=== PATIENT | female | born 1960 | race Caucasian/White ===

== ENCOUNTER 2017-09-21 15:29 | Inpatient (IN) | payer MEDICARE, OTHER ==
[2017-09-21 16:14] LABS: Basophils % (A) 0 %; Eosinophils % (A) 1 %; HCT 40.3 % (34.0-46.0); HGB 13.4 gm/dL (11.4-16.0); Lymphocytes # (A) 1.6 k/uL (1.0-4.8); Lymphocytes % (A) 25 %; MCH 31.8 pg (25.0-35.0); MCHC 33.1 g/dL (31.0-37.0); Mean Platelet Volume 7.3; Monocytes # (A) 0.5 k/uL (0-1.0); Monocytes % (A) 9 %; Neutrophils % (A) 64 %; Platelet Count 232 k/uL (150-450); RDW 11.8 % (11.5-15.5); WBC 6.2 k/uL (3.8-10.6)
--- NOTE | 2017-09-21 16:14 | XR ---
EXAMINATION TYPE: XR chest 2V DATE OF EXAM: 09/21/2017 COMPARISON: 10/12/2015 HISTORY: 56-year-old female with chest pain TECHNIQUE: PA and lateral views FINDINGS: Heart upper limits of normal in size. Aorta and pulmonary vasculature within normal limits. Patchy op acity right upper lobe. No pleural effusion. IMPRESSION: Patchy atelectasis or developing pneumonia in the right upper lobe. Correlate with patient's symptoms . Follow-up after treatment to ensure clearance.
--- NOTE | 2017-09-21 16:14 | ED ---
General Adult HPI - General Chief complaint: Chest Pain Stated complaint: chest pain Time Seen by Provider: 09/21/17 15:31 Source: patient, EMS, RN notes reviewed, old records reviewed Mode of arrival: EMS Limitations: no limitations - History of Present Illness Initial comments: 56 yo female presents for evaluation of anterior chest pain. Patient has been constant for the past 10 days. She describes it as sharp in nature. Patient does report several episodes of dyspnea associated with her pain. She is currently on 3 L home oxygen secondary to COPD. She has no known history of coronary artery disease. She does have a remote history of pulmonary embolism and is currently on Xarelto. Patient denies nausea or vomiting. Denies abdominal pain. Denies lower extremity pain or swelling. - Related Data Home Medications Medication Instructions Recorded Confirmed Albuterol Sulfate [Proair Hfa] 2 puff INHALATION RT-QID PRN 10/07/15 09/21/17 Ipratropium-Albuterol Nebulize 3 ml INHALATION RT-QID PRN 10/07/15 09/21/17 [Duoneb 0.5 mg-3 mg/3 ml Soln] Cholecalciferol [Vitamin D3] 3,000 unit PO DAILY 09/21/17 09/21/17 Rivaroxaban [Xarelto] 15 mg PO DAILY 09/21/17 09/21/17 Previous Rx's Medication Instructions Recorded ALPRAZolam [Xanax] 0.25 mg PO QID PRN #0 tab 10/12/15 DULoxetine HCL [Cymbalta] 60 mg PO BID capsule. 10/12/15 Pregabalin [Lyrica] 75 mg PO BID cap 10/12/15 Divalproex [Depakote] 500 mg PO TID #90 tablet. 10/15/15 levETIRAcetam [Keppra] 750 mg PO Q12HR #60 tab 10/15/15 Allergies Allergy/AdvReac Type Severity Reaction Status Date / Time acetaminophen [From [place]] Allergy Rapid Verified 09/21/17 16:20 Heart Rate hydrocodone bitartrate Allergy Rapid Verified 09/21/17 16:20 [From [place]] Heart Rate seafood AdvReac Unknown Uncoded 09/21/17 15:38 Review of Systems ROS Statement: Those systems with pertinent positive or pertinent negative responses have been documented in the HPI. ROS Other: All systems not noted in ROS Statement are negative. Past Medical History Past Medical History: COPD, Pulmonary Embolus (PE) Additional Past Medical History / Comment(s): epilesy, arthritis, fibromyalgia, depression History of Any Multi-Drug Resistant Organisms: MRSA Date of last positivie culture/infection: 03/22/09 MDRO Source:: Unknown Past Surgical History: Hernia Repair, Tonsillectomy Additional Past Surgical History / Comment(s): cyst removed from behind trachea , plastic surgery on face, Past Anesthesia/Blood Transfusion Reactions: No Reported Reaction Past Psychological History: Anxiety, Depression, Panic Disorder Smoking Status: Never smoker Past Alcohol Use History: None Reported Past Drug Use History: None Reported - Past Family History Father Additional Family Medical History / Comment(s): LUNG CANCER Mother Additional Family Medical History / Comment(s): CERVICAL CANCER General Exam Limitations: no limitations General appearance: alert, in no apparent distress, obese Head exam: Present: atraumatic, normocephalic Eye exam: Present: normal appearance, PERRL, EOMI ENT exam: Present: normal exam Neck exam: Present: normal inspection. Absent: tenderness, meningismus Respiratory exam: Present: decreased breath sounds. Absent: wheezes Cardiovascular Exam: Present: regular rate, normal rhythm GI/Abdominal exam: Present: soft. Absent: distended, tenderness Extremities exam: Present: normal inspection, full ROM, normal capillary refill. Absent: pedal edema, calf tenderness Back exam: Present: normal inspection. Absent: tenderness Neurological exam: Present: alert, oriented X3, CN II-XII intact. Absent: motor sensory deficit Psychiatric exam: Present: normal affect, normal mood Skin exam: Present: warm, dry, intact. Absent: cyanosis, diaphoretic Course Vital Signs 09/21/17 09/21/17 15:35 15:40 Temperature 98.3 F Pulse Rate 85 Pulse Rate [ 75 Front Desk Officer ] Respiratory 20 22 Rate Blood Pressure 150/76 O2 Sat by Pulse 98 Oximetry EKG Findings - EKG Comments: EKG Findings:: EKG, poor quality secondary to patient's tremor, normal sinus rhythm, ventricular rate 82, NJ interval 146, QRS duration 76, QTC 392, no definitive signs of ischemia Medical Decision Making - Medical Decision Making 56-year-old female coming in with chest pain and dyspnea. Patient has COPD, she is on home oxygen. Patient had a heart cath in April 2014 which showed right dominant system, no significant disease at that time. Patient's chest pain is atypical. It has been constant for 10 days. Initial troponin is negative. Other laboratory studies include CBC and CMP are unremarkable. Chest x-ray shows right upper lobe pneumonia. CT angiography is obtained as patient does have history of PE, this is negative for PE, there is significant pulmonary scarring. Patient will be placed in observation for IV antibiotics for the possibility of community acquired pneumonia as well as serial cardiac enzymes. - Lab Data Result diagrams: 09/21/17 15:49 09/21/17 15:49 Lab Results 09/21/17 09/21/17 09/21/17 Range/Units 15:49 15:49 15:49 WBC 6.2 (3.8-10.6) k/uL RBC 4.20 (3.80-5.40) m/uL Hgb 13.4 (11.4-16.0) gm/dL Hct 40.3 (34.0-46.0) % MCV 96.0 (80.0-100.0) fL MCH 31.8 (25.0-35.0) pg MCHC 33.1 (31.0-37.0) g/dL RDW 11.8 (11.5-15.5) % Plt Count 232 (150-450) k/uL Neutrophils % 64 % Lymphocytes % 25 % Monocytes % 9 % Eosinophils % 1 % Basophils % 0 % Neutrophils # 4.0 (1.3-7.7) k/uL Lymphocytes # 1.6 (1.0-4.8) k/uL Monocytes # 0.5 (0-1.0) k/uL Eosinophils # 0.0 (0-0.7) k/uL Basophils # 0.0 (0-0.2) k/uL PT (9.0-12.0) sec INR (<1.2) APTT (22.0-30.0) sec Sodium 138 (137-145) mmol/L Potassium 4.1 (3.5-5.1) mmol/L Chloride 95 L (98-107) mmol/L Carbon Dioxide 34 H (22-30) mmol/L Anion Gap 9 mmol/L BUN 11 (7-17) mg/dL Creatinine 0.50 L (0.52-1.04) mg/dL Est GFR (MDRD) Af Amer >60 (>60 ml/min/1.73 sqM) Est GFR (MDRD) Non-Af >60 (>60 ml/min/1.73 sqM) Glucose 119 H (74-99) mg/dL Calcium 9.4 (8.4-10.2) mg/dL Magnesium 1.8 (1.6-2.3) mg/dL Total Bilirubin 0.3 (0.2-1.3) mg/dL AST 13 L (14-36) U/L ALT 15 (9-52) U/L Alkaline Phosphatase 57 (38-126) U/L Total Creatine Kinase 26 L (30-135) U/L CK-MB (CK-2) <0.2 (0.0-2.4) ng/mL CK-MB (CK-2) Rel Index Troponin I <0.012 (0.000-0.034) ng/mL NT-Pro-B Natriuret Pep pg/mL Total Protein 6.8 (6.3-8.2) g/dL Albumin 3.7 (3.5-5.0) g/dL 09/21/17 09/21/17 Range/Units 15:49 15:49 WBC (3.8-10.6) k/uL RBC (3.80-5.40) m/uL Hgb (11.4-16.0) gm/dL Hct (34.0-46.0) % MCV (80.0-100.0) fL MCH (25.0-35.0) pg MCHC (31.0-37.0) g/dL RDW (11.5-15.5) % Plt Count (150-450) k/uL Neutrophils % % Lymphocytes % % Monocytes % % Eosinophils % % Basophils % % Neutrophils # (1.3-7.7) k/uL Lymphocytes # (1.0-4.8) k/uL Monocytes # (0-1.0) k/uL Eosinophils # (0-0.7) k/uL Basophils # (0-0.2) k/uL PT 11.0 (9.0-12.0) sec INR 1.1 (<1.2) APTT 26.4 (22.0-30.0) sec Sodium (137-145) mmol/L Potassium (3.5-5.1) mmol/L Chloride (98-107) mmol/L Carbon Dioxide (22-30) mmol/L Anion Gap mmol/L BUN (7-17) mg/dL Creatinine (0.52-1.04) mg/dL Est GFR (MDRD) Af Amer (>60 ml/min/1.73 sqM) Est GFR (MDRD) Non-Af (>60 ml/min/1.73 sqM) Glucose (74-99) mg/dL Calcium (8.4-10.2) mg/dL Magnesium (1.6-2.3) mg/dL Total Bilirubin (0.2-1.3) mg/dL AST (14-36) U/L ALT (9-52) U/L Alkaline Phosphatase (38-126) U/L Total Creatine Kinase (30-135) U/L CK-MB (CK-2) (0.0-2.4) ng/mL CK-MB (CK-2) Rel Index Troponin I (0.000-0.034) ng/mL NT-Pro-B Natriuret Pep 51 pg/mL Total Protein (6.3-8.2) g/dL Albumin (3.5-5.0) g/dL Disposition Clinical Impression: Chest pain, Community acquired pneumonia Disposition: ADMITTED IP TO THIS [facility] Condition: Stable Referrals: Noa Olea MD [Primary Care Provider] - 1-2 days Decision to Admit Reason: Admit from EC Decision Date: 09/21/17 Decision Time: 18:55
[2017-09-21 16:22] LABS: INR 1.1 (<1.2); Partial Thromboplastin Time 26.4 sec (22.0-30.0)
[2017-09-21 16:25] LABS: ALT 15 U/L (9-52); AST 13 U/L (14-36); Albumin 3.7 g/dL (3.5-5.0); Alkaline Phosphatase 57 U/L (38-126); Anion Gap 9 mmol/L; Blood Urea Nitrogen 11 mg/dL (7-17); Calcium 9.4 mg/dL (8.4-10.2); Carbon Dioxide 34 mmol/L (22-30); Chloride 95 mmol/L (98-107); Glucose 119 mg/dL (74-99); Potassium 4.1 mmol/L (3.5-5.1); Sodium 138 mmol/L (137-145); Total Bilirubin 0.3 mg/dL (0.2-1.3); Total Protein 6.8 g/dL (6.3-8.2)
[2017-09-21 16:34] LABS: Creatine Kinase 26 U/L (30-135)
[2017-09-21 16:48] LABS: Creatine Kinase MB <0.2 ng/mL (0.0-2.4); Troponin I <0.012 ng/mL (0.000-0.034)
[2017-09-21] MEDS ORDERED: RX INFO: IV CONTRAST WAS GIVEN 1 EACH MISC MISCELLANE PRN (16:49)
--- NOTE | 2017-09-21 18:02 | CT ---
EXAMINATION TYPE: CT angio chest DATE OF EXAM: 09/21/2017 5:47 PM COMPARISON: 10/07/2015 HISTORY: Chest pain x10 days. CT DLP: 326.9 mGycm Automated exposure control for dose reduction was used. CONTRAST: CTA scan of the thorax is performed with IV Contrast, patient injected with 100ml mL of Omnipaque 350 , pulmonary embolism protocol. There are 3-D post processed images.. FINDINGS: There is patchy infiltrate and atelectasis in the medial right lower lobe. There is no pericardial ef fusion. There is no mediastinal adenopathy. Thoracic aorta appears intact. I see no filling defects in the pulmonary arteries. There are no hilar masses. There is no pleural ef fusion. There is coarse linear density also at the left posterior lung base. IMPRESSION: NO EVIDENCE OF PULMONARY EMBOLISM. THERE ARE CHRONIC LINEAR AREAS OF INFILTRATE AND ATELECTASIS AT TH E POSTERIOR LUNG BASES AND MORE ON THE RIGHT SIDE. THIS IS NOT SIGNIFICANTLY DIFFERENT THAN OLD EXAM. THERE IS PROBABLY A SIGNIFICANT COMPONENT OF PULMONARY SCARRING.
[2017-09-21] MEDS ORDERED: cefTRIAXone IN SWFI 1,000 MG/10 ML SYRINGE IVP STA (18:49)
[2017-09-21] MEDS ORDERED: AZITHROMYCIN 500 MG in SODIUM CHLORIDE 0.9% 250 ML IVPB STA (18:49)
[2017-09-21] MEDS ORDERED: NALOXONE 0.4 MG/ML 1 ML VIAL IV PRN (18:51)
[2017-09-21] MEDS: IBUPROFEN 400 MG TAB PO PRN (20:26)
[2017-09-21 22:46] LABS: Creatine Kinase 25 U/L (30-135)
[2017-09-21 22:59] LABS: Creatine Kinase MB <0.2 ng/mL (0.0-2.4); Troponin I <0.012 ng/mL (0.000-0.034)
[2017-09-22] MEDS: ALPRAZolam 0.25 MG TAB PO PRN ×2 (01:43→21:20)
[2017-09-22] MEDS: DIVALPROEX 500 MG TABLET.DR PO SCH ×4 (01:43→21:08)
[2017-09-22] MEDS: PREGABALIN 75 MG CAP PO SCH ×3 (01:43→21:21)
[2017-09-22] MEDS: IBUPROFEN 400 MG TAB PO PRN ×2 (01:49→09:14)
[2017-09-22 03:31] LABS: Creatine Kinase 27 U/L (30-135)
[2017-09-22 03:42] LABS: Creatine Kinase MB <0.2 ng/mL (0.0-2.4)
[2017-09-22 04:18] LABS: Troponin I <0.012 ng/mL (0.000-0.034)
[2017-09-22] MEDS: IPRATROPIUM-ALBUTEROL 3 ML NEB INHALATION PRN ×2 (08:06→11:57)
[2017-09-22] MEDS: DULoxetine HCL 60 MG CAPSULE.DR PO SCH ×2 (09:15→21:08)
[2017-09-22] MEDS: RIVAROXABAN 15 MG TAB PO SCH (09:15)
[2017-09-22] MEDS: CHOLECALCIFEROL 1,000 UNIT TAB PO SCH (09:15)
--- NOTE | 2017-09-22 09:57 | P.HPIM ---
History of Present Illness H&P Date: 09/22/17 Chief Complaint: Chest pain shortness of breath Hollie Estes is a 56-year-old female who presented to [facility] emergency room with a 10 day history of chest pain with episodes of shortness of breath. Patient has a known history of COPD she is followed as outpatient by Dr. Daniel Oates tricot knitter, her primary care physician is Dr. Olea. She also has known history of pulmonary embolism diagnosed 2 years ago, patient has been maintained on Xarelto since then she stated that she has been taking her medication regularly. Patient was evaluated in the emergency room, she had a chest x-ray and a CT angiogram of the chest that failed to reveal any evidence of pulmonary embolism , EKG was done and revealed nonspecific ST and T wave changes, troponin levels were within normal limits, patient was admitted to telemetry floor cardiology and pulmonary consultation were requested. Patient denies having any cardiac history, she states that she had a stress test several years ago, she never had cardiac catheterization. She states that she was diagnosed with COPD, she never smoked but her parents and siblings were smoker and she was exposed to secondhand smoking all her life. She denies any alcohol or drug use. She has a history of a large cyst removed from her neck. Past Medical History Past Medical History: COPD, Pulmonary Embolus (PE) Additional Past Medical History / Comment(s): epilesy, arthritis, fibromyalgia, depression History of Any Multi-Drug Resistant Organisms: MRSA Date of last positivie culture/infection: 03/22/09 MDRO Source:: Unknown Past Surgical History: Hernia Repair, Tonsillectomy Additional Past Surgical History / Comment(s): cyst removed from behind trachea , plastic surgery on face, Past Anesthesia/Blood Transfusion Reactions: No Reported Reaction Past Psychological History: Anxiety, Depression, Panic Disorder Smoking Status: Never smoker Past Alcohol Use History: None Reported Past Drug Use History: None Reported - Past Family History Father Additional Family Medical History / Comment(s): LUNG CANCER Mother Additional Family Medical History / Comment(s): CERVICAL CANCER Medications and Allergies Home Medications Medication Instructions Recorded Confirmed Type Albuterol Sulfate [Proair Hfa] 2 puff INHALATION RT-QID PRN 10/07/15 09/21/17 History Ipratropium-Albuterol Nebulize 3 ml INHALATION RT-QID PRN 10/07/15 09/21/17 History [Duoneb 0.5 mg-3 mg/3 ml Soln] ALPRAZolam [Xanax] 0.25 mg PO QID PRN #0 tab 10/12/15 09/21/17 Rx DULoxetine HCL [Cymbalta] 60 mg PO BID capsule. 10/12/15 09/21/17 Rx Pregabalin [Lyrica] 75 mg PO BID cap 10/12/15 09/21/17 Rx Divalproex [Depakote] 500 mg PO TID #90 tablet. 10/15/15 09/21/17 Rx levETIRAcetam [Keppra] 750 mg PO Q12HR #60 tab 10/15/15 09/21/17 Rx Cholecalciferol [Vitamin D3] 3,000 unit PO DAILY 09/21/17 09/21/17 History Rivaroxaban [Xarelto] 15 mg PO DAILY 09/21/17 09/21/17 History Allergies Allergy/AdvReac Type Severity Reaction Status Date / Time acetaminophen [From [place]] Allergy Rapid Verified 09/21/17 16:20 Heart Rate hydrocodone bitartrate Allergy Rapid Verified 09/21/17 16:20 [From [place]] Heart Rate seafood AdvReac Unknown Uncoded 09/21/17 15:38 Physical Exam Vitals: Vital Signs Temp Pulse Pulse Resp BP BP Pulse Ox 09/22/17 08:25 72 09/22/17 08:07 72 09/22/17 08:00 96.1 F L 79 138/77 98 09/22/17 04:00 96.8 F L 67 18 119/59 99 09/22/17 00:00 82 20 09/21/17 22:05 96.2 F L 82 20 157/82 99 09/21/17 20:52 97.6 F 75 20 121/65 98 09/21/17 20:00 97.8 F 73 18 108/75 98 09/21/17 18:49 97.8 F 71 18 117/62 99 09/21/17 15:40 75 22 09/21/17 15:35 98.3 F 85 20 150/76 98 Intake and Output 09/21/17 09/22/17 09/22/17 22:59 06:59 14:59 Intake Total 350 150 Balance 350 150 Intake: Amount of Fluid Infused ( 100 ml) Intake, IV Titration 250 Amount Azithromycin 500 mg In 250 Sodium Chloride 0.9% 250 ml @ 125 mls/hr IVPB ONCE STA Rx#:[id number] Oral 150 Other: Voiding Method Toilet # Voids 1 1 Weight 102.058 kg 99.7 kg In general patient is alert and oriented 3 answering questions appropriately in no apparent distress HEENT head normocephalic and atraumatic Neck is supple no JVD no goiter no lymphadenopathy Chest exam reveals a few scattered crackles bilaterally no wheezing Cardiac exam reveals regular heart sounds S1 and S2 no gallops no murmurs Abdomen is soft nontender no organomegaly with normal bowel sounds Extremity exam reveals no edema no cyanosis or clubbing Results CBC & Chem 7: 09/21/17 15:49 09/21/17 15:49 Labs: Abnormal Lab Results - Last 24 Hours (Table) 09/21/17 09/21/17 09/21/17 Range/Units 15:49 15:49 22:10 Chloride 95 L (98-107) mmol/L Carbon Dioxide 34 H (22-30) mmol/L Creatinine 0.50 L (0.52-1.04) mg/dL Glucose 119 H (74-99) mg/dL AST 13 L (14-36) U/L Total Creatine Kinase 26 L 25 L (30-135) U/L 09/22/17 Range/Units 02:56 Chloride (98-107) mmol/L Carbon Dioxide (22-30) mmol/L Creatinine (0.52-1.04) mg/dL Glucose (74-99) mg/dL AST (14-36) U/L Total Creatine Kinase 27 L (30-135) U/L Thrombosis Risk Factor Assmnt - Choose All That Apply Any of the Below Risk Factors Present?: Yes Each Factor Represents 1 point: Obesity (BMI >25) Thrombosis Risk Factor Assessment Total Risk Factor Score: 1 Thrombosis Risk Factor Assessment Level: Low Risk Assessment and Plan Assessment: #1 chest pain for the last 10 days patient describes sharp pain in the anterior aspect of her chest, with episodes of shortness of breath #2 questionable infiltrate on chest x-ray patient was started on IV Rocephin and IV Zithromax in the emergency room pulmonary consultation was requested #3 previous history of pulmonary embolism #4 underlying history of COPD #5 underlying history of seizure disorder #6 underlying history of fibromyalgia #7 underlying history of depression #8 underlying history of osteoarthritis At this time will continue with current management awaiting input from cardiology and pulmonary will follow closely
[2017-09-22] MEDS ORDERED: traMADol 50 MG TAB PO PRN (09:58)
[2017-09-22] MEDS: MORPHINE SULFATE ER 15 MG TABLET PO SCH ×2 (14:37→21:20)
[2017-09-22] MEDS: ALBUTEROL NEBULIZED 2.5 MG/3 ML INHALATION PRN (15:40)
[2017-09-22] MEDS ORDERED: DIPHENOX-ATROP 2.5-0.025 MG 1 EACH TAB PO PRN (17:34)
--- NOTE | 2017-09-22 19:56 | P.CNPUL ---
History of Present Illness Consult date: 09/22/17 Reason for consult: dyspnea, cough, asthma, COPD, pneumonia Chief complaint: Shortness of breath cough and chest pain progressive 10 days History of present illness: Mrs. Meaghan dyer is well-known to be she is a 56-year-old with history of chronic persistent asthma and severe COPD patient also has a history of obstructive sleep apnea however she was not able to get a new CPAP machine this patient was started increased chest tightness shortness breath and cough about 10 days ago which has been progressive patient has been on long-term anticoagulation due to her prior recurrent pulmonary embolism has been admitted into the hospital from the emergency department she had a CAT scan of the chest performed on x-ray which failed to reveal pulmonary embolism, even though she is a nonsmoker but due to her chronic asthma she has developed COPD-like changes Review of Systems All systems: negative Past Medical History Past Medical History: COPD, Pulmonary Embolus (PE) Additional Past Medical History / Comment(s): epilesy, arthritis, fibromyalgia, depression History of Any Multi-Drug Resistant Organisms: MRSA Date of last positivie culture/infection: 03/22/09 MDRO Source:: Unknown Past Surgical History: Hernia Repair, Tonsillectomy Additional Past Surgical History / Comment(s): cyst removed from behind trachea , plastic surgery on face, Past Anesthesia/Blood Transfusion Reactions: No Reported Reaction Past Psychological History: Anxiety, Depression, Panic Disorder Smoking Status: Never smoker Past Alcohol Use History: None Reported Past Drug Use History: None Reported - Past Family History Father Additional Family Medical History / Comment(s): LUNG CANCER Mother Additional Family Medical History / Comment(s): CERVICAL CANCER Medications and Allergies Home Medications Medication Instructions Recorded Confirmed Type Albuterol Sulfate [Proair Hfa] 2 puff INHALATION RT-QID PRN 10/07/15 09/21/17 History Ipratropium-Albuterol Nebulize 3 ml INHALATION RT-QID PRN 10/07/15 09/21/17 History [Duoneb 0.5 mg-3 mg/3 ml Soln] ALPRAZolam [Xanax] 0.25 mg PO QID PRN #0 tab 10/12/15 09/21/17 Rx DULoxetine HCL [Cymbalta] 60 mg PO BID capsule. 10/12/15 09/21/17 Rx Pregabalin [Lyrica] 75 mg PO BID cap 10/12/15 09/21/17 Rx Divalproex [Depakote] 500 mg PO TID #90 tablet. 10/15/15 09/21/17 Rx levETIRAcetam [Keppra] 750 mg PO Q12HR #60 tab 10/15/15 09/21/17 Rx Cholecalciferol [Vitamin D3] 3,000 unit PO DAILY 09/21/17 09/21/17 History Rivaroxaban [Xarelto] 15 mg PO DAILY 09/21/17 09/21/17 History Morphine Sulfate ER [Ms Contin 15 mg PO Q12HR 09/22/17 09/22/17 History 15Mg] Allergies Allergy/AdvReac Type Severity Reaction Status Date / Time acetaminophen [From [place]] Allergy Rapid Verified 09/21/17 16:20 Heart Rate hydrocodone bitartrate Allergy Rapid Verified 09/21/17 16:20 [From [place]] Heart Rate seafood AdvReac Unknown Uncoded 09/21/17 15:38 Physical Exam Vitals: Vital Signs Temp Pulse Pulse Resp BP BP Pulse Ox 09/22/17 16:00 94 137/80 100 09/22/17 15:57 80 09/22/17 15:41 76 09/22/17 12:12 80 09/22/17 12:00 84 135/68 99 09/22/17 11:57 84 09/22/17 08:25 72 09/22/17 08:07 72 09/22/17 08:00 96.1 F L 79 138/77 98 09/22/17 04:00 96.8 F L 67 18 119/59 99 09/22/17 00:00 82 20 09/21/17 22:05 96.2 F L 82 20 157/82 99 09/21/17 20:52 97.6 F 75 20 121/65 98 09/21/17 20:00 97.8 F 73 18 108/75 98 Intake and Output 09/22/17 09/22/17 09/22/17 06:59 14:59 22:59 Intake Total 150 820 222 Balance 150 820 222 Intake: Oral 150 820 222 Other: Voiding Method Toilet # Voids 1 Weight 99.7 kg General appearance: alert, in no apparent distress, obese Head exam: Present: atraumatic, normocephalic Eye exam: Present: normal appearance, PERRL, EOMI ENT exam: Present: normal exam Neck exam: Present: normal inspection. Absent: tenderness, meningismus Respiratory exam: Present: decreased breath sounds. Fine wheezing on for's expiration is present Cardiovascular Exam: Present: regular rate, normal rhythm GI/Abdominal exam: Present: soft. Absent: distended, tenderness Extremities exam: Present: normal inspection, full ROM, normal capillary refill. Absent: pedal edema, calf tenderness Back exam: Present: normal inspection. Absent: tenderness Neurological exam: Present: alert, oriented X3, CN II-XII intact. Absent: motor sensory deficit Psychiatric exam: Present: normal affect, normal mood Skin exam: Present: warm, dry, intact. Absent: cyanosis, diaphoreti Results - Laboratory Findings CBC and BMP: 09/21/17 15:49 09/21/17 15:49 PT/INR, D-dimer PT 11.0 sec (9.0-12.0) 09/21/17 15:49 INR 1.1 (<1.2) 09/21/17 15:49 Abnormal lab findings: Abnormal Labs 09/21/17 09/21/17 09/21/17 15:49 15:49 22:10 Chloride 95 L Carbon Dioxide 34 H Creatinine 0.50 L Glucose 119 H AST 13 L Total Creatine Kinase 26 L 25 L 09/22/17 02:56 Chloride Carbon Dioxide Creatinine Glucose AST Total Creatine Kinase 27 L - Diagnostic Findings Chest x-ray: report reviewed, image reviewed CT scan - chest: report reviewed, image reviewed (Right upper lobe pneumonia noted on chest x-ray and computed tomography scan also revealed right lower lobe infiltrate which are patchy in nature, some infiltrate on the left lower lobe cannot be excluded) Assessment and Plan Assessment: Acute COPD X exacerbation Acute asthma Bilateral lower lobe pneumonia right more than left History of prior recurrent pulmonary embolism Obstructive sleep apnea Baseline chronic persistent asthma of severe category Mood disorder depression and chronic pain syndrome Plan: Would initiate patient on IV steroids along with antibiotics continue breathing treatment continue supportive care will check influenza A and B as well Time with Patient: Greater than 30
[2017-09-22] MEDS ORDERED: AZITHROMYCIN 250 MG TAB PO SCH (20:00)
[2017-09-22] MEDS: cefTRIAXone IN SWFI 1,000 MG/10 ML SYRINGE IVP SCH (21:21)
[2017-09-22] MEDS: methylPREDNISolone SOD SUCCI 40 MG/ML 1 ML VIAL IV SCH (21:22)
[2017-09-23] MEDS: DULoxetine HCL 60 MG CAPSULE.DR PO SCH ×2 (08:43→20:34)
[2017-09-23] MEDS: AZITHROMYCIN 500 MG TAB PO SCH (08:43)
[2017-09-23] MEDS: RIVAROXABAN 15 MG TAB PO SCH (08:43)
[2017-09-23] MEDS: methylPREDNISolone SOD SUCCI 40 MG/ML 1 ML VIAL IV SCH ×2 (08:43→22:35)
[2017-09-23] MEDS: CHOLECALCIFEROL 1,000 UNIT TAB PO SCH (08:43)
[2017-09-23] MEDS: MORPHINE SULFATE ER 15 MG TABLET PO SCH ×2 (08:51→20:39)
[2017-09-23] MEDS: PREGABALIN 75 MG CAP PO SCH ×2 (08:52→20:40)
[2017-09-23] MEDS: cefTRIAXone IN SWFI 1,000 MG/10 ML SYRINGE IVP SCH (08:52)
--- NOTE | 2017-09-23 10:16 | P.PN ---
Subjective Progress Note Date: 09/23/17 Hollie Estes is a 56-year-old female who presented to [facility] emergency room with a 10 day history of chest pain with episodes of shortness of breath. Patient has a known history of COPD she is followed as outpatient by Dr. Daniel Oates senior grant writer, her primary care physician is Dr. Olea. She also has known history of pulmonary embolism diagnosed 2 years ago, patient has been maintained on Xarelto since then she stated that she has been taking her medication regularly. Patient was evaluated in the emergency room, she had a chest x-ray and a CT angiogram of the chest that failed to reveal any evidence of pulmonary embolism , EKG was done and revealed nonspecific ST and T wave changes, troponin levels were within normal limits, patient was admitted to telemetry floor cardiology and pulmonary consultation were requested. Patient denies having any cardiac history, she states that she had a stress test several years ago, she never had cardiac catheterization. She states that she was diagnosed with COPD, she never smoked but her parents and siblings were smoker and she was exposed to secondhand smoking all her life. She denies any alcohol or drug use. She has a history of a large cyst removed from her neck. 09/23/2016 IV Solu-Medrol was started yesterday. Patient showing improvement in her shortness of breath. Does not feel ready for discharge yet. CTA of the chest was negative for PE. Influenza screen negative. Objective - Vital Signs Vital signs: Vital Signs Temp 98.2 F 09/23/17 08:00 Pulse 81 09/23/17 08:00 Resp 18 09/23/17 08:00 BP 127/63 09/23/17 08:00 Pulse Ox 96 09/23/17 08:00 Intake & Output 09/22/17 09/23/17 09/23/17 18:59 06:59 18:59 Intake Total 1042 Balance 1042 Weight 100.5 kg Intake: Oral 1042 Other: Voiding Method Toilet # Voids 1 - Exam Head normocephalic Neck supple Lungs diminished bilaterally Heart regular rate and rhythm S1-S2, no rub or gallop Abdomen is soft nontender nondistended positive bowel sounds no hepatosplenomegaly Extremities no edema Neuro alert and orientated to 3 - Labs CBC & Chem 7: 09/21/17 15:49 09/21/17 15:49 Labs: Microbiology - Last 24 Hours (Table) 09/21/17 19:37 Blood Culture - Preliminary Blood No Growth after 24 hours Assessment and Plan Assessment: 1. Acute COPD exacerbation: Continue IV Solu-Medrol and bronchodilators. Pulmonary service following. Appreciate their input. 2. Bilateral lower lobe pneumonia: Continue antibiotics Rocephin and azithromycin 3. Chest pain likely related to patient's pneumonia and COPD exacerbation. PE ruled out CTA of the chest was negative. Troponins negative 3 sets 4. History of seizure disorder 5. History of depression 6. History of osteoarthritis Encourage patient to increase activity. Patient is showing improvement. Anticipate discharge home tomorrow I performed an examination of the patient and discussed their management with the physician Separator Tender. I have reviewed the Physician Separator Tender's notes and agree with the documented findings and plan of care
[2017-09-23 11:16] LABS: Glucose,Whole Blood 131 mg/dL (75-99)
[2017-09-23] MEDS: INSULIN ASPART 100 UNIT/ML 1 ML 10 ML VIAL SQ SCH ×3 (11:50→20:35)
--- NOTE | 2017-09-23 14:17 | P.CRDCN ---
History of Present Illness History of present illness: Mrs. Estes is a pleasant 56-year-old female past medical history significant for COPD, seizures, arthritis, fibromyalgia, PE and depression. She denies history of coronary artery disease and doesn't follow with a editor trade journal for any reason. We have been asked to see her in consultation for complaints of chest pain. She states for the previous 10-12 days she has been feeling increasingly short of breath with a heavy sensation in the center of her chest. The pain remains localized to the center of the chest with no radiation. She denies associated dizziness, palpitations, nausea, vomiting or diaphoresis. The pain has been pretty constant with no specific aggravating or alleviating factors. She presented to the hospital her evaluation and was ruled out for PE diagnosed with bilateral lower lobe pneumonia as well as an acute exacerbation of her COPD. At the time of my exam she is resting comfortably with no complaints. She states the pressure in her chest has gone away and her breathing is improved since admission. She is currently being treated with IV antibiotics as well as IV steroids. Pulmonology is also following. EKG reveals sinus mechanism with non-specific T wave changes. Chest x-ray reveals patchy atelectasis or developing pneumonia in the right upper lobe. CT angiogram reveals no evidence of pulmonary embolism with chronic coronary areas of infiltrate atelectasis in the posterior lung bases more on the right. Laboratory data reviewed, cardiac enzymes negative 3, hemoglobin 13.4, platelets 232, potassium 4.1, magnesium 1.8, creatinine 0.5. Currently she takes Xarelto 15 mg daily for history of PE. Most recent cardiac catheterization was performed April 2014 revealed right coronary artery free of significant disease, left main is free of stenosis, LAD is a tortuous vessel with minor irregularities with no evidence of significant disease, circumflex artery is a good caliber good distribution with no evidence of stenosis. Review of Systems At the time of my exam: CONSTITUTIONAL: Denies fever. Denies chills. EYES: Denies blurred vision. Denies vision changes. Denies eye pain. EARS, NOSE, MOUTH & THROAT: Denies headache. Denies sore throat. Denies ear pain. CARDIOVASCULAR: Denies chest pain. Complains of mild but improving shortness of breath. Denies orthopnea. Denies PND. Denies palpitations. RESPIRATORY: Denies cough. GASTROINTESTINAL: Denies abdominal pain. Denies diarrhea. Denies constipation. Denies nausea. Denies vomiting. MUSCULOSKELETAL: Denies myalgias. INTEGUMENTARY: Denies pruitis. Denies rash. NEUROLOGIC: Denies numbness. Denies tingling. Denies weakness. PSYCHIATRIC: Denies anxiety. Denies depression. ENDOCRINE: Denies fatigue. Denies weight change. Denies polydipsia. Denies polyurina. GENITOURINARY: Denies burning, hematuria or urgency with micturation. HEMATOLOGIC: Denies history of anemia. Denies bleeding. Past Medical History Past Medical History: COPD, Pulmonary Embolus (PE) Additional Past Medical History / Comment(s): epilesy, arthritis, fibromyalgia, depression History of Any Multi-Drug Resistant Organisms: MRSA Date of last positivie culture/infection: 03/22/09 MDRO Source:: Unknown Past Surgical History: Hernia Repair, Tonsillectomy Additional Past Surgical History / Comment(s): cyst removed from behind trachea , plastic surgery on face, Past Anesthesia/Blood Transfusion Reactions: No Reported Reaction Past Psychological History: Anxiety, Depression, Panic Disorder Smoking Status: Never smoker Past Alcohol Use History: None Reported Past Drug Use History: None Reported - Past Family History Father Additional Family Medical History / Comment(s): LUNG CANCER Mother Additional Family Medical History / Comment(s): CERVICAL CANCER Medications and Allergies Home Medications Medication Instructions Recorded Confirmed Type Albuterol Sulfate [Proair Hfa] 2 puff INHALATION RT-QID PRN 10/07/15 09/21/17 History Ipratropium-Albuterol Nebulize 3 ml INHALATION RT-QID PRN 10/07/15 09/21/17 History [Duoneb 0.5 mg-3 mg/3 ml Soln] ALPRAZolam [Xanax] 0.25 mg PO QID PRN #0 tab 10/12/15 09/21/17 Rx DULoxetine HCL [Cymbalta] 60 mg PO BID capsule. 10/12/15 09/21/17 Rx Pregabalin [Lyrica] 75 mg PO BID cap 10/12/15 09/21/17 Rx Divalproex [Depakote] 500 mg PO TID #90 tablet. 10/15/15 09/21/17 Rx levETIRAcetam [Keppra] 750 mg PO Q12HR #60 tab 10/15/15 09/21/17 Rx Cholecalciferol [Vitamin D3] 3,000 unit PO DAILY 09/21/17 09/21/17 History Rivaroxaban [Xarelto] 15 mg PO DAILY 09/21/17 09/21/17 History Morphine Sulfate ER [Ms Contin 15 mg PO Q12HR 09/22/17 09/22/17 History 15Mg] Allergies Allergy/AdvReac Type Severity Reaction Status Date / Time acetaminophen [From [place]] Allergy Rapid Verified 09/21/17 16:20 Heart Rate hydrocodone bitartrate Allergy Rapid Verified 09/21/17 16:20 [From [place]] Heart Rate seafood AdvReac Unknown Uncoded 09/21/17 15:38 Physical Exam Vitals: Vital Signs Temp Pulse Pulse Pulse Resp BP BP 09/23/17 08:00 98.2 F 81 18 127/63 09/23/17 00:00 93 20 09/22/17 20:00 93 20 09/22/17 19:15 98.3 F 93 20 145/81 09/22/17 16:00 94 137/80 09/22/17 15:57 80 09/22/17 15:41 76 Pulse Ox 09/23/17 08:00 96 09/23/17 00:00 09/22/17 20:00 09/22/17 19:15 100 09/22/17 16:00 100 09/22/17 15:57 09/22/17 15:41 Intake and Output 09/22/17 09/23/17 09/23/17 22:59 06:59 14:59 Intake Total 222 Balance 222 Intake: Oral 222 Other: Voiding Method Toilet Toilet # Voids 1 1 Weight 100.5 kg Blood pressure 127/63 heart rate 81 afebrile GENERAL: This is a 56-year-old female in no apparent distress at the time of my examination. HEENT: Head is atraumatic, normocephalic. Pupils are equal, round. Sclerae anicteric. Conjunctivae are clear. Mucous membranes of the mouth are moist. Neck is supple. There is no jugular venous distention. No carotid bruit is heard. LUNGS: Clear to auscultation no wheezes, rales or rhonchi. No chest wall tenderness is noted on palpation or with deep breathing. Diminished. HEART: Regular rate and rhythm with systolic ejection murmur at the base, no rubs or gallops. S1 and S2 heard. ABDOMEN: Soft, nontender. Bowel sounds are heard. No organomegaly noted. EXTREMITIES: Trace nonpitting bilateral lower extremity edema and no calf tenderness noted. VASCULAR: Radial and dorsalis pedis pulses palpated, no evidence of clubbing. NEUROLOGIC: Patient is awake, alert and oriented x3. Results 09/21/17 15:49 09/21/17 15:49 Current Medications Generic Name Dose Route Start Last Admin Trade Name Freq PRN Reason Stop Dose Admin Albuterol Sulfate 2.5 mg 09/22/17 00:53 09/22/17 15:40 Ventolin Nebulized INHALATION 2.5 mg RT-QID PRN Administration Shortness Of Breath Albuterol/Ipratropium 3 ml 09/22/17 00:53 09/22/17 11:57 Duoneb 0.5 Mg-3 Mg/3 Ml Soln INHALATION 3 ml RT-QID PRN Administration Shortness Of Breath Alprazolam 0.25 mg 09/22/17 00:53 09/22/17 21:20 Xanax PO 0.25 mg QID PRN Administration Anxiety Azithromycin 500 mg 09/22/17 20:12 09/23/17 08:43 Zithromax PO 500 mg DAILY BABATUNDE Administration Ceftriaxone Sodium 1,000 mg 09/22/17 20:00 09/23/17 08:52 Rocephin IVP 1,000 mg Q24HR BABATUNDE Administration Cholecalciferol 3,000 unit 09/22/17 09:00 09/23/17 08:43 Vitamin D3 PO 3,000 unit DAILY BABATUNDE Administration Diphenoxylate HCl/Atropine 1 each 09/22/17 17:34 09/22/17 18:03 Lomotil PO 1 each Q6HR PRN Administration Diarrhea Divalproex Sodium 500 mg 09/22/17 01:00 09/22/17 21:08 Depakote PO 500 mg TID BABATUNDE Administration Duloxetine HCl 60 mg 09/22/17 09:00 09/23/17 08:43 Cymbalta PO 60 mg BID BABATUNDE Administration Ibuprofen 400 mg 09/21/17 18:51 09/22/17 09:14 Motrin PO 400 mg Q6HR PRN Administration Mild Pain or Fever > 100.5 Insulin Aspart 0 unit 09/23/17 12:30 09/23/17 11:50 Novolog SQ Not Given ACHS [facility] Protocol Levetiracetam 750 mg 09/22/17 01:00 09/23/17 11:49 Keppra PO 750 mg Q12HR BABATUNDE Administration Methylprednisolone Sodium Succinate 40 mg 09/22/17 21:00 09/23/17 08:43 Solu-Medrol IV 40 mg Q12HR BABATUNDE Administration Miscellaneous Information 1 each 09/21/17 16:49 Rx Info: Iv Contrast Was Given MISCELLANE 09/23/17 16:50 DAILY PRN Per Protocol Morphine Sulfate 15 mg 09/22/17 13:30 09/23/17 08:51 Ms Contin PO 15 mg Q12HR BABATUNDE Administration Naloxone HCl 0.2 mg 09/21/17 18:51 Narcan IV Q2M PRN Opioid Reversal Pregabalin 75 mg 09/22/17 01:00 09/23/17 08:52 Lyrica PO 75 mg BID BABATUNDE Administration Rivaroxaban 15 mg 09/22/17 09:00 09/23/17 08:43 Xarelto PO 15 mg DAILY BABATUNDE Administration Tramadol HCl 50 mg 09/22/17 09:58 Ultram PO 09/29/17 09:59 QID PRN Pain Intake and Output 09/22/17 09/23/17 09/23/17 22:59 06:59 14:59 Intake Total 222 Balance 222 Intake: Oral 222 Other: Voiding Method Toilet Toilet # Voids 1 1 Weight 100.5 kg 09/21/17 15:49 09/21/17 15:49 Assessment and Plan Assessment: ASSESSMENT 1. Chest pain, atypical. EKG shows no evidence of ischemia normal cardiac enzymes. Acute coronary event has been ruled out. Chest pain most likely related to exacerbation of COPD with pneumonia. 2. Right lobe pneumonia 3. Acute exacerbation of chronic COPD 4. Morbid obesity PLAN Obtain 2-D echocardiogram and Doppler study to assess cardiac structure and function. No further cardiac workup at this time. Continue with medical management of pneumonia and exacerbation of COPD. Follow up with Dr. Sam in 2-3 weeks for further cardiac evaluation with possible outpatient stress testing. Thank you kindly for this consultation. Nurse Practitioner note has been reviewed, I agree with a documented findings and plan of care. Patient was seen and examined.
[2017-09-23] MEDS: DIVALPROEX 500 MG TABLET.DR PO SCH ×3 (15:35→22:47)
[2017-09-23] MEDS: IPRATROPIUM-ALBUTEROL 3 ML NEB INHALATION PRN (15:47)
--- NOTE | 2017-09-23 16:33 | P.PN ---
Subjective Progress Note Date: 09/23/17 Principal diagnosis: Acute COPD exacerbation, acute on chronic persistent asthma, bilateral lower lobe pneumonia, history of pulmonary embolism, obstructive sleep apnea, 09/23/2017, patient seen eval reexamined has been getting broad-spectrum antibiotics along with breathing treatments steroids respiratory status slightly better cough congestion shortness present improved but still get short of breath on activity and exertion, medications reviewed laboratory data from today reviewed my influenza A and B both negative is well-known to be she is a 56-year-old with history of chronic persistent asthma and severe COPD patient also has a history of obstructive sleep apnea however she was not able to get a new CPAP machine this patient was started increased chest tightness shortness breath and cough about 10 days ago which has been progressive patient has been on long-term anticoagulation due to her prior recurrent pulmonary embolism has been admitted into the hospital from the emergency department she had a CAT scan of the chest performed on x- ray which failed to reveal pulmonary embolism, even though she is a nonsmoker but due to her chronic asthma she has developed COPD-like changes Objective - Vital Signs Vital signs: Vital Signs Temp 97.6 F 09/23/17 15:50 Pulse 80 09/23/17 16:01 Resp 18 09/23/17 15:50 BP 170/76 09/23/17 15:50 Pulse Ox 92 L 09/23/17 15:50 Intake & Output 09/22/17 09/23/17 09/23/17 18:59 06:59 18:59 Intake Total 1042 150 Balance 1042 150 Weight 100.5 kg Intake: Oral 1042 150 Other: Voiding Method Toilet # Voids 1 2 - Exam General appearance: alert, in no apparent distress, obese Head exam: Present: atraumatic, normocephalic Eye exam: Present: normal appearance, PERRL, EOMI ENT exam: Present: normal exam Neck exam: Present: normal inspection. Absent: tenderness, meningismus Respiratory exam: Present: decreased breath sounds. Fine wheezing on forced expiration is present, exam appears to improve compared to yesterday Cardiovascular Exam: Present: regular rate, normal rhythm GI/Abdominal exam: Present: soft. Absent: distended, tenderness Extremities exam: Present: normal inspection, full ROM, normal capillary refill. Absent: pedal edema, calf tenderness Back exam: Present: normal inspection. Absent: tenderness Neurological exam: Present: alert, oriented X3, CN II-XII intact. Absent: motor sensory deficit Psychiatric exam: Present: normal affect, normal mood Skin exam: Present: warm, dry, intact. Absent: cyanosis, diaphoretic - Labs CBC & Chem 7: 09/21/17 15:49 09/21/17 15:49 Labs: Abnormal Lab Results - Last 24 Hours (Table) 09/23/17 Range/Units 11:14 POC Glucose (mg/dL) 131 H (75-99) mg/dL Microbiology - Last 24 Hours (Table) 09/21/17 19:37 Blood Culture - Preliminary Blood No Growth after 24 hours Assessment and Plan Assessment: Bilateral lower lobe pneumonia right more than left Acute asthma Acute COPD X exacerbation History of prior recurrent pulmonary embolism Obstructive sleep apnea Baseline chronic persistent asthma of severe category Mood disorder depression and chronic pain syndrome Plan: Would initiate patient on IV steroids along with antibiotics continue breathing treatment continue supportive care will check influenza A and B as well Time with Patient: Greater than 30
[2017-09-23 17:05] LABS: Glucose,Whole Blood 160 mg/dL (75-99)
[2017-09-23 19:44] LABS: Glucose,Whole Blood 145 mg/dL (75-99)
[2017-09-23] MEDS: ALPRAZolam 0.25 MG TAB PO PRN (20:41)
--- NOTE | 2017-09-23 23:21 | CONS ---
CONSULTATION DATE OF SERVICE: 09/23/2017. REASON FOR CONSULTATION: Pneumonia. HISTORY OF PRESENT ILLNESS: The patient is a 56-year-old female presenting to the ER at [facility] on 09/21/2017 with chief complaints of increasing shortness of breath along with chest pain. Her symptoms have been going on for about 10 days prior to presentation to hospital. Pain has been mostly in the in the center of the chest and more of a heavy feeling. The patient did have associated shortness of breath with it. Intensity the pain of 5/10 to 6/10 and no radiation. The patient also has minimal cough, but not bringing up any sputum. No nausea or vomiting and no diarrhea. With these symptoms, the patient was brought into the ER at [facility], where the patient was evaluated by the ER physician. The patient did have previous history of a pulmonary embolism; hence, CT angiogram was done that was negative for PE. However, it did show some patchy infiltrate or atelectasis in the mid right lower lobe. The patient has been in the hospital, started on Rocephin, Zithromax for possible pneumonia. Infectious Disease was consulted for further recommendation regarding antibiotic therapy. Since the patient has been in the hospital, no high-grade fever has been recorded and the patient has been saturating between 92%-100%. The patient did have influenza serology. Those were negative and no on admission. REVIEW OF SYSTEMS: CONSTITUTIONAL: Positive for weakness, some chills, but no high-grade fever. EYES: No complaint. ENT: No complaint. RESPIRATORY: As per HPI. CARDIOVASCULAR: As per HPI. GENITOURINARY: No complaint. GASTROINTESTINAL: No complaint. MUSCULOSKELETAL: No complaint. INTEGUMENTARY: No complaint. PSYCHOLOGICAL: No complaint. ENDOCRINE: No complaint. NEUROLOGICAL: No complaint. PAST MEDICAL HISTORY: Significant for fibromyalgia, depression, epilepsy, pulmonary embolism, COPD from secondhand smoking. PAST SURGICAL HISTORY: Tonsillectomy and hernia repair, plastic surgery on the face and cyst removed from the head, trachea. PAST PSYCHOLOGICAL HISTORY: Positive for anxiety, depression, panic disorder. SOCIAL HISTORY: No history of smoking. Exposed to secondhand smoking. No drinking or drug use. FAMILY HISTORY: Father with history of lung cancer. Mother with history of cervical cancer. ALLERGIES: To TYLENOL and HYDROCODONE. MEDICATIONS: The patient is currently on: 1. Ventolin. 2. DuoNeb. 3. Xanax. 4. Zithromax. 5. Rocephin. 6. Vitamin D3. 7. Lomotil. 8. Depakote. 9. Cymbalta. 10.Motrin. 11.NovoLog. 12.Keppra. 13.Solu-Medrol. 14.MS Contin. 15.Narcan. 16.Lyrica. 17.Xarelto and. 18.Ultram. EXAMINATION: Blood pressure is 123/63 with a pulse of 84, temperature of 97.6. She is 99% on 2L nasal cannula. General description is a middle aged female lying in bed in no distress. No tachypnea or accessory muscle of respiration use. HEENT shows no pallor or scleral icterus. Oral mucous membranes dry. NECK: Trachea is central. No thyromegaly. LUNGS: Unlabored breathing with decreased intensity of breath sounds. No wheeze. HEART: S1, S2. Regular rate and rhythm. ABDOMEN: Soft, no tenderness. No guarding. No rigidity. No organomegaly. EXTREMITIES: No edema of feet. SKIN: No rash or mass palpable. NEUROLOGICAL: Patient is awake, alert, oriented x3. Mood and affect normal. LABS: Hemoglobin 13.4, white count of 6.2. BUN of 11, creatinine 0.50. Electrolytes have been normal. Liver enzymes are normal. Influenza serology was negative. CT report as mentioned above. DIAGNOSTIC IMPRESSION AND PLAN: Patient admitted to hospital with increasing shortness of breath. She did have a cough and chest pain with evidence of right lower lobe infiltrate with question of possible community-acquired pneumonia not entirely excluded. So far, workup for a pulmonary embolism has been negative and is being evaluated by Cardiology with no clear cardiac source for her pain. PLAN: 1. We will try to obtain sputum for Gram stain, culture and sensitivity. 2. The patient will be given Rocephin and Zithromax to cover for community-acquired pneumonia. 3. Depending upon the clinical response as well as cultures will determine her discharge antibiotic. Thank you for this consultation. Will follow this patient along with you. MMODL / IJN: [id number] /
[2017-09-24] MEDS: ALPRAZolam 0.25 MG TAB PO PRN (02:52)
[2017-09-24 07:21] LABS: Glucose,Whole Blood 153 mg/dL (75-99)
[2017-09-24] MEDS: cefTRIAXone IN SWFI 1,000 MG/10 ML SYRINGE IVP SCH (07:51)
[2017-09-24] MEDS: AZITHROMYCIN 500 MG TAB PO SCH (07:52)
[2017-09-24] MEDS: RIVAROXABAN 15 MG TAB PO SCH (07:52)
[2017-09-24] MEDS: methylPREDNISolone SOD SUCCI 40 MG/ML 1 ML VIAL IV SCH (07:52)
[2017-09-24] MEDS: DIVALPROEX 500 MG TABLET.DR PO SCH (07:52)
[2017-09-24] MEDS: DULoxetine HCL 60 MG CAPSULE.DR PO SCH (07:52)
[2017-09-24] MEDS: CHOLECALCIFEROL 1,000 UNIT TAB PO SCH (07:52)
[2017-09-24] MEDS: INSULIN ASPART 100 UNIT/ML 1 ML 10 ML VIAL SQ SCH ×2 (07:52→11:54)
[2017-09-24] MEDS: PREGABALIN 75 MG CAP PO SCH (08:04)
[2017-09-24] MEDS: MORPHINE SULFATE ER 15 MG TABLET PO SCH (08:04)
[2017-09-24 08:06] LABS: Anion Gap 12 mmol/L; Blood Urea Nitrogen 15 mg/dL (7-17); Calcium 9.9 mg/dL (8.4-10.2); Carbon Dioxide 31 mmol/L (22-30); Chloride 95 mmol/L (98-107); Glucose 153 mg/dL (74-99); Potassium 4.6 mmol/L (3.5-5.1); Sodium 138 mmol/L (137-145)
[2017-09-24 08:10] LABS: Basophils % (A) 0 %; Eosinophils % (A) 0 %; HCT 41.7 % (34.0-46.0); HGB 13.6 gm/dL (11.4-16.0); Lymphocytes # (A) 0.6 k/uL (1.0-4.8); Lymphocytes % (A) 9 %; MCH 31.9 pg (25.0-35.0); MCHC 32.7 g/dL (31.0-37.0); MCV 97.8 fL (80.0-100.0); Mean Platelet Volume 8.1; Monocytes # (A) 0.3 k/uL (0-1.0); Monocytes % (A) 4 %; Neutrophils # (A) 5.2 k/uL (1.3-7.7); Neutrophils % (A) 86 %; Platelet Count 235 k/uL (150-450); RBC 4.26 m/uL (3.80-5.40)
[2017-09-24 08:24] VITALS: RESP 18
--- NOTE | 2017-09-24 10:52 | P.CONS ---
History of Present Illness - Reason for Consult Consult date: 09/24/17 Dysphagia Requesting physician: Gama Weaver - History of Present Illness 56-year-old female with a history of pulmonary embolism maintained on Xarelto, chronic dysphagia, COPD, epilepsy, fibromyalgia, MRSA, depression. Admitted with community acquired pneumonia. Consultation requested for dysphagia. Patient has had a sensation of food being stuck in the posterior pharynx upper esophageal region for more than a year. She is able to tolerate liquids but thicker foods such as bread and meat cause more troubles sometimes she coughs up undigested food. MBS 2016 reported presbyesophagus some mild dilatation of the proximal esophagus no evidence of stricture. She is scheduled for EGD evaluation possible dilation 09/29/[address] Gonzalez. Denies hematemesis hematochezia melena. No weight loss. CT chest no evidence of pulmonary embolism. Hemoglobin 13.6. White count 6.0. Review of Systems Constitutional: Denies fever, chills, sweats, weight gain, or loss. HEENT: Negative for migraines, blurred vision or loss, earaches, drainage, tinnitus, oral mucosal lesions, dysphagia, or odynophagia. CARDIAC: COPD. Pulmonary embolus and. Negative for chest pain, arrhythmias, or palpitation. RESPIRATORY: Negative for shortness of breath, hemoptysis, cough, or sputum production. GI: See HPI for pertinent findings. : Negative for hematuria, urgency, frequency, polyuria, or dysuria. GYNc: Denies possibility of . Negative vaginal discharge. MUSCULOSKELETAL: History of fiber myalgia. Arthritis. Negative for muscle aches, swelling, arthritis, and arthralgias. NEUROLOGIC: Epilepsy. Negative for stroke or TIA. ENDOCRINE: Negative for thyroid problems. SKIN: Negative for rash or itching. PSYCHIATRIC: History of anxiety. Depression. Past Medical History Past Medical History: COPD, Pulmonary Embolus (PE) Additional Past Medical History / Comment(s): epilesy, arthritis, fibromyalgia, depression History of Any Multi-Drug Resistant Organisms: MRSA Year Discovered:: 03/22/09 MDRO Source:: Unknown Past Surgical History: Hernia Repair, Tonsillectomy Additional Past Surgical History / Comment(s): cyst removed from behind trachea , plastic surgery on face, Past Anesthesia/Blood Transfusion Reactions: No Reported Reaction Past Psychological History: Anxiety, Depression, Panic Disorder Smoking Status: Never smoker Past Alcohol Use History: None Reported Past Drug Use History: None Reported - Past Family History Father Additional Family Medical History / Comment(s): LUNG CANCER Mother Additional Family Medical History / Comment(s): CERVICAL CANCER Medications and Allergies Home Medications Medication Instructions Recorded Confirmed Type Albuterol Sulfate [Proair Hfa] 2 puff INHALATION RT-QID PRN 10/07/15 09/21/17 History Ipratropium-Albuterol Nebulize 3 ml INHALATION RT-QID PRN 10/07/15 09/21/17 History [Duoneb 0.5 mg-3 mg/3 ml Soln] ALPRAZolam [Xanax] 0.25 mg PO QID PRN #0 tab 10/12/15 09/21/17 Rx DULoxetine HCL [Cymbalta] 60 mg PO BID capsule. 10/12/15 09/21/17 Rx Pregabalin [Lyrica] 75 mg PO BID cap 10/12/15 09/21/17 Rx Divalproex [Depakote] 500 mg PO TID #90 tablet. 10/15/15 09/21/17 Rx levETIRAcetam [Keppra] 750 mg PO Q12HR #60 tab 10/15/15 09/21/17 Rx Cholecalciferol [Vitamin D3] 3,000 unit PO DAILY 09/21/17 09/21/17 History Rivaroxaban [Xarelto] 15 mg PO DAILY 09/21/17 09/21/17 History Morphine Sulfate ER [Ms Contin 15 mg PO Q12HR 09/22/17 09/22/17 History 15Mg] Allergies Allergy/AdvReac Type Severity Reaction Status Date / Time acetaminophen [From [place]] Allergy Rapid Verified 09/21/17 16:20 Heart Rate hydrocodone bitartrate Allergy Rapid Verified 09/21/17 16:20 [From [place]] Heart Rate seafood AdvReac Unknown Uncoded 09/21/17 15:38 Physical Exam Vitals: Vital Signs Temp Pulse Pulse Pulse Resp BP Pulse Ox 09/24/17 07:00 98.0 F 76 18 130/71 99 09/24/17 00:00 84 81 16 09/23/17 19:49 97.6 F 84 16 123/63 99 09/23/17 17:09 74 16 134/76 96 09/23/17 16:01 80 09/23/17 15:50 97.6 F 86 18 170/76 92 L 09/23/17 15:47 78 Intake and Output 09/23/17 09/24/17 09/24/17 22:59 06:59 14:59 Other: Voiding Method Toilet Toilet # Voids 1 2 Weight 100.5 kg General appearance: The patient is alert, oriented, in no acute distress. HET: Head is normocephalic and atraumatic. Pupils are equal and reactive. Oropharynx is clear without lesions. Neck: Supple without lymphadenopathy. Trachea midline. Heart: S1 S2. Regular rate and rhythm. Lungs: No crackles or wheezes are heard. Abdomen: Soft, nontender, nondistended with bowel sounds. No peritoneal signs. No palpable organomegaly or masses. Extremities: Normal skin color and turgor. No cyanosis, rash, ulceration, clubbing, or edema. Radial and pedal pulses are 2/4 bilaterally. Neurological: No focal deficits. Strength and sensation are grossly intact. Results CBC & Chem 7: 09/24/17 07:03 09/24/17 07:03 Labs: Abnormal Lab Results - Last 24 Hours (Table) 09/23/17 09/23/17 09/23/17 Range/Units 11:14 17:03 19:42 Lymphocytes # (1.0-4.8) k/uL Chloride (98-107) mmol/L Carbon Dioxide (22-30) mmol/L Glucose (74-99) mg/dL POC Glucose (mg/dL) 131 H 160 H 145 H (75-99) mg/dL 09/24/17 09/24/17 09/24/17 Range/Units 07:03 07:03 07:08 Lymphocytes # 0.6 L (1.0-4.8) k/uL Chloride 95 L (98-107) mmol/L Carbon Dioxide 31 H (22-30) mmol/L Glucose 153 H (74-99) mg/dL POC Glucose (mg/dL) 153 H (75-99) mg/dL Microbiology - Last 24 Hours (Table) 09/21/17 19:37 Blood Culture - Preliminary Blood No Growth after [address] scan - chest: report reviewed (Dr. Beckett) Assessment and Plan (1) Dysphagia Narrative/Plan: Chronic dysphagia suspect periesophageal greater than 1 year duration exacerbated with solids versus liquids suspect combination of presbyesophagus possible stricture disease. Current Visit: Yes Status: Acute Code(s): R13.10 - DYSPHAGIA, UNSPECIFIED SNOMED Code(s): 19084388 (2) Presbyesophagus Current Visit: Yes Status: Acute Code(s): K22.8 - OTHER SPECIFIED DISEASES OF ESOPHAGUS SNOMED Code(s): 728511051 Plan: 1. MBS study before discharge compared to previous study in 2016. EGD possible dilation scheduled for 09/29/2017 at [facility] with Dr. Gonzalez. 2. Patient to discontinue anticoagulation 2 days prior to procedure recommend last dose of Xarelto 09/26/2017. No aspirin or NSAIDs. 3. Liquid diet soft foods as tolerated until endoscopic exam can be completed. 4. Discharge per medicine. Thank you for this kind referral and the opportunity to participate in the care of your patient. This consultation was discussed with Dr. Beckett. The impression and plan of care have been directed as dictated.
[2017-09-24] MEDS: ALBUTEROL NEBULIZED 2.5 MG/3 ML INHALATION PRN (10:56)
--- NOTE | 2017-09-24 11:30 | ECHOF ---
Referral Reason:chest pain/shortness of breath MEASUREMENTS -------- HEIGHT: 152.4 cm WEIGHT: 100.2 kg BP: 127/63 RVIDd: 2.5 cm (< 3.3) IVSd: 1.0 cm (0.6 - 1.1) LVIDd: 3.5 cm (3.9 - 5.3) LVPWd: 1.1 cm (0.6 - 1.1) IVSs: 1.8 cm LVIDs: 1.8 cm LVPWs: 1.8 cm LAESV Index (A-L): 11.57 ml/m Ao Diam: 3.0 cm (2.0 - 3.7) AV Cusp: 1.9 cm (1.5 - 2.6) LA Diam: 2.9 cm (2.7 - 3.8) MV EXCURSION: 12.148 mm (> 18.000) MV EF SLOPE: 93 mm/s (70 - 150) EPSS: 0.2 cm MV E Jagdeep: 1.05 m/s MV DecT: 236 ms MV A Jagdeep: 1.20 m/s MV E/A Ratio: 0.87 AV maxP.28 mmHg AV meanP.38 mmHg RAP: 5.00 mmHg RVSP: 24.48 mmHg FINDINGS -------- Sinus rhythm. This was a technically good study. The left ventricular size is normal. Left ventricular wall thickness is normal. Overall left vent ricular systolic function is normal with, an EF between 55 - 60 %. The right ventricle is normal in size and function. The left atrium is normal in size. The right atrium is normal in size. Aortic valve is trileaflet and is mildly thickened. Peak/mean gradient across the Aortic Valve is 1 6.28mmHg / 9.38mmHg. The mitral valve leaflets are mildly thickened. Mild mitral annular calcification present. There is trace mitral regurgitation. Mild tricuspid regurgitation present. The right ventricular systolic pressure, as measured by Doppl er, is 24.48mmHg. Pulmonic valve appears structurally normal. The aortic root size is normal. Normal inferior vena cava with normal inspiratory collapse consistent with estimated right atrial pre ssure of 5 mmHg. The pericardium is normal. CONCLUSIONS -------- 1. Sinus rhythm. 2. This was a technically good study. 3. The left ventricular size is normal. 4. Left ventricular wall thickness is normal. 5. Overall left ventricular systolic function is normal with, an EF between 55 - 60 %. 6. The right ventricle is normal in size and function. 7. The left atrium is normal in size. 8. The right atrium is normal in size. 9. Aortic valve is trileaflet and is mildly thickened. 10. Peak/mean gradient across the Aortic Valve is 16.28mmHg / 9.38mmHg. 11. The mitral valve leaflets are mildly thickened. 12. Mild mitral annular calcification present. 13. There is trace mitral regurgitation. 14. Mild tricuspid regurgitation present. 15. The right ventricular systolic pressure, as measured by Doppler, is 24.48mmHg. 16. Pulmonic valve appears structurally normal. 17. The aortic root size is normal. 18. Normal inferior vena cava with normal inspiratory collapse consistent with estimated right atrial pressure of 5 mmHg. 19. The pericardium is normal. DIE CAST SUPERVISOR: Dee Dee Baig RDCS
[2017-09-24 12:06] LABS: Glucose,Whole Blood 116 mg/dL (75-99)
[2017-09-24 13:53] VITALS: BP 125/96; PULSE 100; TEMP 98.3
--- NOTE | 2017-09-24 14:13 | P.DS ---
Providers Date of admission: 09/21/17 18:51 Expected date of discharge: 09/24/17 Attending physician: Gama Weaver Consults: 09/22/17 09:42 Consult Physician Routine Consulting Provider: Corrina Mckeon Consult Reason/Comments: chest pain Do you want consulting provider notified?: Yes 09/22/17 09:49 Consult Physician Routine Consulting Provider: Daniel Steiner Consult Reason/Comments: dyspnea Do you want consulting provider notified?: Yes 09/23/17 10:15 Consult Physician Routine Consulting Provider: Noa Olea Consult Reason/Comments: pneumonia Do you want consulting provider notified?: Yes 09/23/17 14:16 Consult Physician Routine Consulting Provider: Sandra Gonzalez Consult Reason/Comments: dysphagia and vomiting Do you want consulting provider notified?: Yes Primary care physician: Noa Olea Hospital Course: Discharge diagnosis 1. Acute COPD exacerbation: Patient will be discharged home with a prednisone taper. Symptoms are improving 2. Bilateral lower lobe pneumonia: Patient will be discharged home with Ceftin for 5 more days 3. Chest pain likely related to patient's pneumonia and COPD exacerbation. PE ruled out CTA of the chest was negative. Troponins negative 3 sets. Patient seen evaluated by cardiology and acute coronary event ruled out. Echo shows an EF of 55-60%. 4. History of seizure disorder 5. History of depression 6. History of osteoarthritis 7. History of PE 2 episodes. Last PE was about 4 years ago. 8. Dysphagia: History of chronic dysphagia. Seen by GI service. They've ordered a modified barium swallow to compare to previous study that was done 2016. Symptoms may be related to presbyesophagus or possible stricture disease. They've cleared patient for discharge and have scheduled EGD with possible dilation on 09/29/2017. Also they recommended to discontinue the Xarelto 2 days prior to procedure so last dose of be given on 09/26/2017. They' re recommending no aspirin or NSAIDs. Also recommending a liquid diet or soft foods as tolerated until endoscopic exam. Also note that patient will be on Lovenox for bridging while she is taken off of her Xarelto. She will take the Lovenox on September 27 BID and the morning of September 28. After that Lovenox discontinued. She can resume her Xarelto the evening of her procedure. Hospital course Hollie Estes is a 56-year-old female who presented to [facility] emergency room with a 10 day history of chest pain with episodes of shortness of breath. Patient has a known history of COPD she is followed as outpatient by Dr. Daniel Oates [employer] retailer sales consultant, her primary care physician is Dr. Olea. She also has known history of pulmonary embolism diagnosed 2 years ago, patient has been maintained on Xarelto since then she stated that she has been taking her medication regularly. Patient was evaluated in the emergency room, she had a chest x-ray and a CT angiogram of the chest that failed to reveal any evidence of pulmonary embolism , EKG was done and revealed nonspecific ST and T wave changes, troponin levels were within normal limits, patient was admitted to telemetry floor cardiology and pulmonary consultation were requested. Patient denies having any cardiac history, she states that she had a stress test several years ago, she never had cardiac catheterization. She states that she was diagnosed with COPD, she never smoked but her parents and siblings were smoker and she was exposed to secondhand smoking all her life. She denies any alcohol or drug use. She has a history of a large cyst removed from her neck. Patient was seen by cardiology, pulmonary and infectious disease. She was treated for an acute COPD exacerbation and pneumonia. She'll continue prednisone taper and antibiotics for 5 more days. Her symptoms have improved greatly. Also evaluated by cardiology regarding chest pain. Chest pain was likely related to her COPD and pneumonia. Symptoms have improved. And she'll follow-up with cardiology outpatient. Patient also reported difficulty swallowing yesterday with 1 episode of vomiting. She does report a chronic history of this and feels that food gets stuck in her throat. She is scheduled for an EGD outpatient. However during this admission we did have GI see her and they recommended a barium swallow before discharge for further evaluation and comparison to previous Barium Swallow. And they have scheduled for EGD for September 29 with possible dilation. Patient is currently tolerating a diet. She is stable for discharge. And patient is eager for discharge home. I performed an examination of the patient and discussed their management with the physician Commissioning Manager. I have reviewed the Physician Commissioning Manager's notes and agree with the documented findings and plan of care Patient Condition at Discharge: Stable Plan - Discharge Summary Discharge Rx Participant: No New Discharge Prescriptions: New Cefuroxime Axetil [Ceftin] 500 mg PO BID #10 tab predniSONE 10 mg PO DIRECTED #12 tab Continue Albuterol Sulfate [Proair Hfa] 2 puff INHALATION RT-QID PRN PRN Reason: Shortness Of Breath Ipratropium-Albuterol Nebulize [Duoneb 0.5 mg-3 mg/3 ml Soln] 3 ml INHALATION RT-QID PRN PRN Reason: Shortness Of Breath ALPRAZolam [Xanax] 0.25 mg PO QID PRN #0 tab PRN Reason: Anxiety DULoxetine HCL [Cymbalta] 60 mg PO BID capsule. Pregabalin [Lyrica] 75 mg PO BID cap Divalproex [Depakote] 500 mg PO TID #90 tablet. levETIRAcetam [Keppra] 750 mg PO Q12HR #60 tab Cholecalciferol [Vitamin D3] 3,000 unit PO DAILY Rivaroxaban [Xarelto] 15 mg PO DAILY Morphine Sulfate ER [Ms Contin] 15 mg PO Q12HR Discharge Medication List Albuterol Sulfate [Proair Hfa] 2 puff INHALATION RT-QID PRN 10/07/15 [History] Ipratropium-Albuterol Nebulize [Duoneb 0.5 mg-3 mg/3 ml Soln] 3 ml INHALATION RT -QID PRN 10/07/15 [History] ALPRAZolam [Xanax] 0.25 mg PO QID PRN #0 tab 10/12/15 [Rx] DULoxetine HCL [Cymbalta] 60 mg PO BID capsule. 10/12/15 [Rx] Pregabalin [Lyrica] 75 mg PO BID cap 10/12/15 [Rx] Divalproex [Depakote] 500 mg PO TID #90 tablet. 10/15/15 [Rx] levETIRAcetam [Keppra] 750 mg PO Q12HR #60 tab 10/15/15 [Rx] Cholecalciferol [Vitamin D3] 3,000 unit PO DAILY 09/21/17 [History] Rivaroxaban [Xarelto] 15 mg PO DAILY 09/21/17 [History] Morphine Sulfate ER [Ms Contin] 15 mg PO Q12HR 09/22/17 [History] Cefuroxime Axetil [Ceftin] 500 mg PO BID #10 tab 09/24/17 [Rx] predniSONE 10 mg PO DIRECTED #12 tab 09/24/17 [Rx] Follow up Appointment(s)/Referral(s): Noa Olea MD [Primary Care Provider] - 1 Week Sandra Gonzalez MD [STAFF PHYSICIAN] - 09/29/17 Activity/Diet/Wound Care/Special Instructions: Diet:regular Activity: as tolerated Patient has appointment 09/29/2017 and [facility] with Dr. Gonzalez for EGD and possible dilation. Patient is to discontinue Xarelto 2 days prior to procedure therefore last dose of Xarelto will be 09/26/2017. No aspirin or NSAIDs 1 week before procedure. Lovenox to be given on September 27 and the morning of September 28. Then stop lovenox. Xarelto can be resumed the evening after the procedure. Discharge Disposition: HOME SELF-CARE
--- NOTE | 2017-09-24 14:25 | PN ---
PROGRESS NOTE DATE OF SERVICE: 09/24/2017 REASON FOR FOLLOWUP: Pneumonia. INTERVAL HISTORY: The patient is afebrile. She has been breathing more comfortably, seemed to have some problem with keeping the food down and vomiting, but no abdominal pain. No diarrhea. Overall, chest pain improved and the breathing has improved. PHYSICAL EXAMINATION: Her blood pressure is 130/71 with a pulse of 73, temperature 98, she is 99% on 2 L nasal cannula. General description is a middle-aged female, up in the room in no distress. RESPIRATORY SYSTEM: Unlabored breathing, clear to auscultation anteriorly. HEART: S1, S2. Regular rate and rhythm. ABDOMEN: Soft, no tenderness. LABS: Hemoglobin is 13.6, WBC is 6.0. BUN of 15, creatinine 0.52. DIAGNOSTIC IMPRESSION AND PLAN: Patient admitted to the hospital with chest pain and some shortness of breath, concern for possible right lower lobe pneumonia. CTA was negative for any PE. Plan at this time is to give the patient Ceftin, Rocephin and Zithromax. If the patient continued to improve, finish up with oral Ceftin for about a week. Plan of care was discussed with the nurse practitioner for the admitting team. Continue supportive care. MMODL / IJN: [id number] /
--- NOTE | 2017-09-24 14:56 | FL ---
EXAMINATION TYPE: FL barium swallow w video DATE OF EXAM: 09/24/2017 MODIFIED SWALLOW / DEGLUTITION STUDY CLINICAL HISTORY: Dysphagia. TECHNIQUE: Deglutition study is performed utilizing thin liquid barium, and honey and nectar thick l iquid barium. A total of 1 minute 45 seconds of fluoroscopic time was utilized during procedure. Appr oximately 10 cine sequences were acquired. 0 images are saved to PACS. COMPARISON: None. FINDINGS: The oral and pharyngeal phases show satisfactory initiation with some poor epiglottis inver cathleen noted with all modalities tested. There is no evidence of penetration or aspiration with any mod ality tested. Visualized proximal esophagus is dilated with poor motility and reflux back to the hyp opharyngeal airway with patient having repeated coughing episodes. Exam was terminated. No significan t pharyngeal residue was appreciated. IMPRESSION: No penetration or aspiration observed. Abnormal esophagus partially visualized causes ref lux and coughing. Please refer to speech therapist notes for further details if necessary.
--- NOTE | 2017-09-24 15:26 | P.PN ---
Subjective Progress Note Date: 09/24/17 Principal diagnosis: Acute COPD exacerbation, acute on chronic persistent asthma, bilateral lower lobe pneumonia, history of pulmonary embolism, obstructive sleep apnea, 09/24/2017, patient seen eval reexamined during the rounds clinically doing well awake and alert breathing K more comfortably cuff congestion has improved tolerating antibiotics fairly well 09/23/2017, patient seen eval reexamined has been getting broad-spectrum antibiotics along with breathing treatments steroids respiratory status slightly better cough congestion shortness present improved but still get short of breath on activity and exertion, medications reviewed laboratory data from today reviewed my influenza A and B both negative is well-known to be she is a 56-year-old with history of chronic persistent asthma and severe COPD patient also has a history of obstructive sleep apnea however she was not able to get a new CPAP machine this patient was started increased chest tightness shortness breath and cough about 10 days ago which has been progressive patient has been on long-term anticoagulation due to her prior recurrent pulmonary embolism has been admitted into the hospital from the emergency department she had a CAT scan of the chest performed on x- ray which failed to reveal pulmonary embolism, even though she is a nonsmoker but due to her chronic asthma she has developed COPD-like changes Objective - Vital Signs Vital signs: Vital Signs Temp 98.3 F 09/24/17 13:53 Pulse 100 09/24/17 13:53 Resp 18 09/24/17 13:53 BP 125/96 09/24/17 13:53 Pulse Ox 98 09/24/17 13:53 Intake & Output 09/23/17 09/24/17 09/24/17 18:59 06:59 18:59 Intake Total 150 Balance 150 Weight 100.5 kg Intake: Oral 150 Other: Voiding Method Toilet Toilet # Voids 2 2 - Exam General appearance: alert, in no apparent distress, obese Head exam: Present: atraumatic, normocephalic Eye exam: Present: normal appearance, PERRL, EOMI ENT exam: Present: normal exam Neck exam: Present: normal inspection. Absent: tenderness, meningismus Respiratory exam: Present: decreased breath sounds. Fine wheezing on forced expiration is present, exam appears to improve compared to yesterday Cardiovascular Exam: Present: regular rate, normal rhythm GI/Abdominal exam: Present: soft. Absent: distended, tenderness Extremities exam: Present: normal inspection, full ROM, normal capillary refill. Absent: pedal edema, calf tenderness Back exam: Present: normal inspection. Absent: tenderness Neurological exam: Present: alert, oriented X3, CN II-XII intact. Absent: motor sensory deficit Psychiatric exam: Present: normal affect, normal mood Skin exam: Present: warm, dry, intact. Absent: cyanosis, diaphoretic - Labs CBC & Chem 7: 09/24/17 07:03 09/24/17 07:03 Labs: Abnormal Lab Results - Last 24 Hours (Table) 09/23/17 09/23/17 09/24/17 Range/Units 17:03 19:42 07:03 Lymphocytes # 0.6 L (1.0-4.8) k/uL Chloride (98-107) mmol/L Carbon Dioxide (22-30) mmol/L Glucose (74-99) mg/dL POC Glucose (mg/dL) 160 H 145 H (75-99) mg/dL 09/24/17 09/24/17 09/24/17 Range/Units 07:03 07:08 11:54 Lymphocytes # (1.0-4.8) k/uL Chloride 95 L (98-107) mmol/L Carbon Dioxide 31 H (22-30) mmol/L Glucose 153 H (74-99) mg/dL POC Glucose (mg/dL) 153 H 116 H (75-99) mg/dL Microbiology - Last 24 Hours (Table) 09/21/17 19:37 Blood Culture - Preliminary Blood No Growth after 48 hours Assessment and Plan Assessment: Bilateral lower lobe pneumonia right more than left Acute on chronic hypoxic respiratory failure related to above Acute asthma Acute COPD X exacerbation History of prior recurrent pulmonary embolism Obstructive sleep apnea Baseline chronic persistent asthma of severe category Mood disorder depression and chronic pain syndrome Plan: Would initiate patient on steroids along with antibiotics continue breathing treatment continue supportive care and continue supportive care increase activity as tolerated if patient discharged home in next 24 hours recommend follow-up in outpatient setting Time with Patient: Greater than 30
== END 2017-09-24 16:42 | disposition home or self-care (01) | DRG 190 ==
LOC: EC 15:29 → 6SEL 18:51 → 5MS5E 09-22 19:24
PROVIDERS: ADMIT Internal Medicine; ATTEND Internal Medicine
DX: J44.1 Chronic obstructive pulmonary disease with (acute) exacerbation (principal); J18.9 Pneumonia, unspecified organism; J96.21 Acute and chronic respiratory failure with hypoxia; E66.01 Morbid (severe) obesity due to excess calories; R13.10 Dysphagia, unspecified; Z68.41 Body mass index [BMI] 40.0-44.9, adult; J44.0 Chronic obstructive pulmonary disease with (acute) lower respiratory infection; Z99.81 Dependence on supplemental oxygen; F32.9 Major depressive disorder, single episode, unspecified; F41.0 Panic disorder [episodic paroxysmal anxiety]; G40.909 Epilepsy, unspecified, not intractable, without status epilepticus; M79.7 Fibromyalgia; G47.33 Obstructive sleep apnea (adult) (pediatric); K22.8 Other specified diseases of esophagus; R11.10 Vomiting, unspecified; G89.4 Chronic pain syndrome; M19.90 Unspecified osteoarthritis, unspecified site; Z88.6 Allergy status to analgesic agent; Z91.013 Allergy to seafood; Z79.899 Other long term (current) drug therapy; Z79.01 Long term (current) use of anticoagulants; Z80.49 Family history of malignant neoplasm of other genital organs; Z80.1 Family history of malignant neoplasm of trachea, bronchus and lung; Z86.14 Personal history of Methicillin resistant Staphylococcus aureus infection; Z87.19 Personal history of other diseases of the digestive system; Z90.89 Acquired absence of other organs; Z86.711 Personal history of pulmonary embolism; Z79.891 Long term (current) use of opiate analgesic
CPT/HCPCS: 36415; 71046; 71275; 74230; 80048; 80053; 82550; 82553; 83605; 83735; 83880; 84484; 85025; 85610; 85730; 87040; 87502; 93005; 93306; 94640; 94760; 96365; 96375; 99285

== ENCOUNTER 2017-09-29 07:45 | Day surgery (SDC) | payer MEDICARE, OTHER ==
[2017-09-27 12:18] VITALS: BMI 42.0
[~2017-09-29 07:45] MED LIST: LACTATED RINGERS 1,000 ML IV SCH
[2017-09-29 08:27] VITALS: TEMP 97.2
[2017-09-29] MEDS ORDERED: PROPOFOL 10 MG/ML 20 ML VIAL IV ONE (08:32)
[2017-09-29] MEDS ORDERED: LIDOCAINE 1% INJ 10MG/ML (20 ML MDV) ONE (08:32)
[2017-09-29 08:35] LABS: Glucose,Whole Blood 98 mg/dL (75-99)
--- NOTE | 2017-09-29 08:48 | P.PCN ---
Date of Procedure: 09/29/17 Procedure(s) Performed: BRIEF HISTORY: Patient is a 56-year-old, pleasant, white female, scheduled for an upper endoscopy as a part of evaluation of progressive dysphagia to solids for the last several years duration.. Symptoms are daily with solids and liquids as well as his lipids. She underwent Adelina fundoplication by Dr. Bassett in July 2013 and since then her symptoms have been progressively getting worse. She is hence scheduled for an upper endoscopy with possible dilation.. PROCEDURE PERFORMED: Esophagogastroduodenoscopy with biopsy. PREOPERATIVE DIAGNOSIS: Progressive dysphagia to solids and liquids for years duration. IV sedation per anesthesia. PROCEDURE: After informed consent was obtained, the patient was brought into the endoscopy unit. IV sedation was administered by Anesthesia under continuous monitoring. Initially the Olympus GIF-140 video endoscope was inserted into the mouth. Esophagus intubated without any difficulty. It was gradually advanced into the stomach and duodenum and carefully examined. The bulb and the second part of the duodenum appeared normal. The scope at this time was withdrawn to the stomach, adequately insufflated with air, and upon careful examination, mucosa of the antrum had patchy erythema and biopsies were done from this area. The body, cardia and the fundus appeared normal. There was evidence of Adelina fundoplication noted. The scope was then withdrawn into the esophagus. Small sliding Hiatal hernia noted. The GE junction was located at 32 cm from the incisors. The esophagus appeared normal. There were no erosions or ulcerations seen. There was an extrinsic compression in the mid esophagus at 25 cm from the incisors but no luminal narrowing identified. The rest of esophagus appeared normal, biopsies were done from the distal esophagus and the patient tolerated the procedure well. IMPRESSION: 1. No evidence of esophagitis or esophageal stricture. 2. Mild extensive compression in the mid esophagus but no luminal narrowing. 3. Antral gastritis 4. Small hiatal hernia RECOMMENDATIONS: The findings of this examination were discussed with the patient as well as a family. She was advised to follow with the biopsy results. She will be given a trial of Prilosec 20 mg daily for 6 weeks. Follow up in office in 6 weeks.
[2017-09-29 08:49] VITALS: PULSE 83; RESP 16
[2017-09-29 09:03] VITALS: BP 111/65
== END 2017-09-29 09:46 | disposition home or self-care (01) ==
LOC: ORWHC2ENDO 07:45
PROVIDERS: ATTEND Internal Medicine Gastroenterology
DX: K29.50 Unspecified chronic gastritis without bleeding (principal); K44.9 Diaphragmatic hernia without obstruction or gangrene; K22.2 Esophageal obstruction; K20.9 Esophagitis, unspecified; Z88.5 Allergy status to narcotic agent; J44.9 Chronic obstructive pulmonary disease, unspecified; Z79.01 Long term (current) use of anticoagulants; Z79.899 Other long term (current) drug therapy; Z91.048 Other nonmedicinal substance allergy status
CPT/HCPCS: 88305; 43239; J2001; J2704

== ENCOUNTER → 2018-03-29 | Outpatient (CLI) | payer MEDICARE, OTHER ==
--- NOTE | 2018-03-29 14:33 | CT ---
EXAMINATION TYPE: CT brain wo con DATE OF EXAM: 03/29/2018 COMPARISON: 10/12/2015 HISTORY: Migraines x [address] DLP: 972.1 mGycm Automated exposure control for dose reduction was used. FINDINGS: No midline shift or mass effect. Hyperostosis of the frontal bone. No acute hemorrhage. Ventricular size is compatible with the patient's age. IMPRESSION: NO ACUTE PROCESS. IF SYMPTOMS PERSIST CONSIDER MRI.
== END | disposition home or self-care (01) ==
LOC: RADCTMAIN 14:08
PROVIDERS: ATTEND Psychiatry & Neurology Neurology
DX: G40.209 Localization-related (focal) (partial) symptomatic epilepsy and epileptic syndromes with complex partial seizures, not intractable, without status epilepticus (principal); R51 Headache
CPT/HCPCS: 70450

== ENCOUNTER → 2018-08-19 | Outpatient (CLI) | payer MEDICARE, OTHER ==
[2018-08-19 11:34] LABS: Basophils % (A) 0 %; Eosinophils # (A) 0.2 k/uL (0-0.7); Eosinophils % (A) 3 %; HCT 40.3 % (34.0-46.0); HGB 12.8 gm/dL (11.4-16.0); Lymphocytes # (A) 1.8 k/uL (1.0-4.8); Lymphocytes % (A) 27 %; MCH 32.3 pg (25.0-35.0); MCHC 31.8 g/dL (31.0-37.0); MCV 101.6 fL (80.0-100.0); Mean Platelet Volume 7.7; Monocytes # (A) 0.4 k/uL (0-1.0); Monocytes % (A) 6 %; Neutrophils # (A) 4.1 k/uL (1.3-7.7); Neutrophils % (A) 61 %; Platelet Count 296 k/uL (150-450); RBC 3.97 m/uL (3.80-5.40); RDW 12.6 % (11.5-15.5); WBC 6.7 k/uL (3.8-10.6)
[2018-08-19 16:17] LABS: Valproic Acid (Depakene) 33.5 ug/mL (50.0-100.0)
[2018-08-19 16:18] LABS: Albumin 4.1 g/dL (3.80-4.90); Albumin/Globulin Ratio 1.95 (1.20-2.10); Anion Gap 9.4 mmol/L (4.00-12.00); Calcium 9.1 mg/dL (8.7-10.3); Carbon Dioxide 32.6 mmol/L (21.6-31.8); Globulin 2.1 g/dL (1.6-3.3); LDL Cholesterol,Calculated 67.2 mg/dL (0.0-131.0); Total Bilirubin 0.2 mg/dL (0.2-1.2); Total Protein 6.2 g/dL (6.2-8.2); VLDL Calculation 20.8 mg/dL (5.00-40.00)
== END | disposition home or self-care (01) ==
LOC: LABWHC1 10:10
PROVIDERS: ATTEND Internal Medicine Infectious Disease
DX: E78.00 Pure hypercholesterolemia, unspecified (principal); I10 Essential (primary) hypertension; E55.9 Vitamin D deficiency, unspecified; G47.33 Obstructive sleep apnea (adult) (pediatric); R56.9 Unspecified convulsions
CPT/HCPCS: 36415; 80053; 80061; 80164; 80177; 82306; 85025

== ENCOUNTER → 2018-09-05 | Outpatient (CLI) | payer MEDICARE, OTHER ==
--- NOTE | 2018-09-07 09:50 | MM ---
Reason for exam: screening (asymptomatic). Last mammogram was performed 5 years and 6 months ago. History: Patient is postmenopausal and is nulliparous. Physical Findings: A clinical breast exam by your physician is recommended on an annual basis and results should be correlated with mammographic findings. MG Screening Mammo w CAD Bilateral CC and MLO view(s) were taken. Prior study comparison: March 20, 2013, bilateral digital screening mammo w/CAD. February 27, 2009, mammogram, performed at [facility]. There are scattered fibroglandular densities. There is chronic nodularity bilaterally. No significant changes when compared with prior studies. ASSESSMENT: Negative, BI-RAD 1 RECOMMENDATION: Routine screening mammogram of both breasts in 1 year.
== END | disposition home or self-care (01) ==
LOC: RADMAMWWP 13:19
PROVIDERS: ATTEND Internal Medicine Infectious Disease
DX: Z12.31 Encounter for screening mammogram for malignant neoplasm of breast (principal)
CPT/HCPCS: 77067

== ENCOUNTER 2018-10-06 13:16 | Inpatient (IN) | payer MEDICARE, OTHER ==
[2018-10-06] MEDS ORDERED: IPRATROPIUM 0.5 MG/2.5 ML NEBU INHALATION STA (13:34)
[2018-10-06] MEDS ORDERED: ALBUTEROL NEBULIZED 2.5 MG/3 ML INHALATION STA (13:34)
[2018-10-06] MEDS ORDERED: methylPREDNISolone SOD SUCCI 125 MG/2 ML VIAL IV STA (13:34)
[2018-10-06] MEDS ORDERED: SODIUM CHLORIDE 0.9% 1,000 ML IV STA (13:34)
--- NOTE | 2018-10-06 13:35 | ED ---
SOB HPI - General Chief Complaint: Shortness of Breath Stated Complaint: SOB Time Seen by Provider: 10/06/18 13:34 Source: patient, RN notes reviewed, old records reviewed Mode of arrival: wheelchair Limitations: no limitations - History of Present Illness Initial Comments: This is a 57-year-old female the ER for evaluation. She presents today for eval uation significant shortness of breath and chest pain. Patient states she has history of PE COPD and also history of chest pain. Patient's been taking medications at home as directed with no improvement. Denies fever does have increased cough. No travel history no known sick contacts, no significant recent hospitalization MD Complaint: shortness of breath, cough -: days(s) Severity: mild Severity scale (1-10): 7 Quality: aching Consistency: constant Improves With: nothing Worsens With: exertion, movement, coughing, inspiration Known History Of: COPD Context: recent URI Associated Symptoms: chest pain, pain with inspiration, cough, sputum production Treatments Prior to Arrival: none - Related Data Home Medications Medication Instructions Recorded Confirmed Albuterol Sulfate [Proair Hfa] 2 puff INHALATION RT-QID PRN 10/07/15 10/06/18 Morphine Sulfate ER [Ms Contin] 15 mg PO Q12HR 09/22/17 10/06/18 ALPRAZolam [Xanax] 0.25 mg PO QID 10/06/18 10/06/18 Diphenoxylate HCl/Atropine 2 tab PO BID PRN 10/06/18 10/06/18 [Lomotil 2.5-0.025 mg Tablet] Ensure 1 can PO QID 10/06/18 10/06/18 Ipratropium-Albuterol Nebulize 3 ml INHALATION RT-BID 10/06/18 10/06/18 [Duoneb 0.5 mg-3 mg/3 ml Soln] Montelukast Sodium [Singulair] 10 mg PO HS 10/06/18 10/06/18 Rivaroxaban [Xarelto] 20 mg PO DAILY 10/06/18 10/06/18 Simvastatin [Zocor] 20 mg PO HS 10/06/18 10/06/18 Vitamin A 8,000 unit PO DAILY 10/06/18 10/06/18 Previous Rx's Medication Instructions Recorded DULoxetine HCL [Cymbalta] 60 mg PO BID capsule.dr 10/12/15 Pregabalin [Lyrica] 75 mg PO BID cap 10/12/15 Divalproex [Depakote] 500 mg PO TID #90 tablet. 10/15/15 levETIRAcetam [Keppra] 750 mg PO Q12HR #60 tab 10/15/15 Allergies Allergy/AdvReac Type Severity Reaction Status Date / Time hydrocodone bitartrate AdvReac Rapid Verified 10/06/18 14:10 [From [place]] Heart Rate iodine AdvReac Nausea & Verified 10/06/18 14:10 Vomiting seafood Allergy HIVES Uncoded 10/06/18 14:10 Review of Systems ROS Statement: Those systems with pertinent positive or pertinent negative responses have been documented in the HPI. ROS Other: All systems not noted in ROS Statement are negative. Past Medical History Past Medical History: COPD, Pulmonary Embolus (PE) Additional Past Medical History / Comment(s): epilesy, arthritis, fibromyalgia, depression History of Any Multi-Drug Resistant Organisms: MRSA Date of last positivie culture/infection: 03/22/09 MDRO Source:: Unknown Past Surgical History: Hernia Repair, Tonsillectomy Additional Past Surgical History / Comment(s): cyst removed from behind trachea, plastic surgery on face, Past Anesthesia/Blood Transfusion Reactions: No Reported Reaction Past Psychological History: Anxiety, Depression, Panic Disorder Smoking Status: Never smoker - Past Family History Father Additional Family Medical History / Comment(s): LUNG CANCER Mother Additional Family Medical History / Comment(s): CERVICAL CANCER General Exam Limitations: no limitations General appearance: alert, in no apparent distress Head exam: Present: atraumatic, normocephalic, normal inspection Eye exam: Present: normal appearance, PERRL, EOMI. Absent: scleral icterus, conjunctival injection, periorbital swelling ENT exam: Present: normal exam, mucous membranes moist Neck exam: Present: normal inspection. Absent: tenderness, meningismus, lymphadenopathy Respiratory exam: Present: respiratory distress, wheezes, accessory muscle use, decreased breath sounds, prolonged expiratory. Absent: rales, rhonchi, stridor Cardiovascular Exam: Present: regular rate, normal rhythm, normal heart sounds. Absent: systolic murmur, diastolic murmur, rubs, gallop, clicks GI/Abdominal exam: Present: soft, normal bowel sounds. Absent: distended, tenderness, guarding, rebound, rigid Extremities exam: Present: normal inspection, full ROM, normal capillary refill. Absent: tenderness, pedal edema, joint swelling, calf tenderness Back exam: Present: normal inspection Neurological exam: Present: alert, oriented X3, CN II-XII intact Psychiatric exam: Present: normal affect, normal mood Skin exam: Present: warm, dry, intact, normal color. Absent: rash Course Vital Signs 10/06/18 10/06/18 10/06/18 13:26 13:40 14:09 Temperature 97.7 F Pulse Rate 71 90 92 Respiratory 16 Rate Blood Pressure 154/63 O2 Sat by Pulse 95 Oximetry 10/06/18 15:12 Temperature 98 F Pulse Rate 88 Respiratory 20 Rate Blood Pressure 132/54 O2 Sat by Pulse 100 Oximetry Medical Decision Making - Medical Decision Making 87-year-old female the ER with history of COPD, PE. Patient recently she is having worsening COPD exacerbation currently but does have chest pain as well as possible PE. Patient is on anticoagulation is been taking it regularly. to be admitted for COPD exacerbation - Lab Data Result diagrams: 10/06/18 13:57 10/06/18 13:57 Lab Results 10/06/18 10/06/18 10/06/18 Range/Units 13:57 13:57 13:57 WBC 8.1 (3.8-10.6) k/uL RBC 3.96 (3.80-5.40) m/uL Hgb 12.3 (11.4-16.0) gm/dL Hct 38.9 (34.0-46.0) % MCV 98.1 (80.0-100.0) fL MCH 31.1 (25.0-35.0) pg MCHC 31.7 (31.0-37.0) g/dL RDW 12.2 (11.5-15.5) % Plt Count 265 (150-450) k/uL Neutrophils % 71 % Lymphocytes % 19 % Monocytes % 6 % Eosinophils % 2 % Basophils % 0 % Neutrophils # 5.7 (1.3-7.7) k/uL Lymphocytes # 1.6 (1.0-4.8) k/uL Monocytes # 0.5 (0-1.0) k/uL Eosinophils # 0.2 (0-0.7) k/uL Basophils # 0.0 (0-0.2) k/uL PT 10.8 (9.0-12.0) sec INR 1.0 (<1.2) APTT 27.7 (22.0-30.0) sec D-Dimer 0.20 (<0.60) mg/L FEU Sodium 140 (137-145) mmol/L Potassium 4.3 (3.5-5.1) mmol/L Chloride 98 (98-107) mmol/L Carbon Dioxide 36 H (22-30) mmol/L Anion Gap 6 mmol/L BUN 9 (7-17) mg/dL Creatinine 0.41 L (0.52-1.04) mg/dL Est GFR (CKD-EPI)AfAm >90 (>60 ml/min/1.73 sqM) Est GFR (CKD-EPI)NonAf >90 (>60 ml/min/1.73 sqM) Glucose 118 H (74-99) mg/dL Calcium 9.2 (8.4-10.2) mg/dL Magnesium 1.5 L (1.6-2.3) mg/dL Total Bilirubin 0.4 (0.2-1.3) mg/dL AST 17 (14-36) U/L ALT 32 (9-52) U/L Alkaline Phosphatase 73 (38-126) U/L Troponin I (0.000-0.034) ng/mL NT-Pro-B Natriuret Pep pg/mL Total Protein 6.5 (6.3-8.2) g/dL Albumin 3.6 (3.5-5.0) g/dL 10/06/18 10/06/18 Range/Units 13:57 13:57 WBC (3.8-10.6) k/uL RBC (3.80-5.40) m/uL Hgb (11.4-16.0) gm/dL Hct (34.0-46.0) % MCV (80.0-100.0) fL MCH (25.0-35.0) pg MCHC (31.0-37.0) g/dL RDW (11.5-15.5) % Plt Count (150-450) k/uL Neutrophils % % Lymphocytes % % Monocytes % % Eosinophils % % Basophils % % Neutrophils # (1.3-7.7) k/uL Lymphocytes # (1.0-4.8) k/uL Monocytes # (0-1.0) k/uL Eosinophils # (0-0.7) k/uL Basophils # (0-0.2) k/uL PT (9.0-12.0) sec INR (<1.2) APTT (22.0-30.0) sec D-Dimer (<0.60) mg/L FEU Sodium (137-145) mmol/L Potassium (3.5-5.1) mmol/L Chloride (98-107) mmol/L Carbon Dioxide (22-30) mmol/L Anion Gap mmol/L BUN (7-17) mg/dL Creatinine (0.52-1.04) mg/dL Est GFR (CKD-EPI)AfAm (>60 ml/min/1.73 sqM) Est GFR (CKD-EPI)NonAf (>60 ml/min/1.73 sqM) Glucose (74-99) mg/dL Calcium (8.4-10.2) mg/dL Magnesium (1.6-2.3) mg/dL Total Bilirubin (0.2-1.3) mg/dL AST (14-36) U/L ALT (9-52) U/L Alkaline Phosphatase (38-126) U/L Troponin I <0.012 (0.000-0.034) ng/mL NT-Pro-B Natriuret Pep 91 pg/mL Total Protein (6.3-8.2) g/dL Albumin (3.5-5.0) g/dL - EKG Data -: EKG Interpreted by Me (EKG shows normal sinus rhythm rate of 73, UT 144, QRS 86, QTc 401) - Radiology Data Radiology results: report reviewed (Chest x-rays negative for acute disease, CT is negative for PE), image reviewed Critical Care Time Critical Care Time: Yes Total Critical Care Time: 31 Disposition Clinical Impression: Altered mental status, Dyspnea, Acute exacerbation of chronic obstructive airways disease, Chest pain Disposition: ADMITTED IP TO THIS [facility] Condition: Undetermined Is patient prescribed a controlled substance at d/c from ED?: No Referrals: Noa Olea MD [Primary Care Provider] - 1-2 days
[2018-10-06 14:17] LABS: Basophils % (A) 0 %; Eosinophils # (A) 0.2 k/uL (0-0.7); Eosinophils % (A) 2 %; HCT 38.9 % (34.0-46.0); HGB 12.3 gm/dL (11.4-16.0); Lymphocytes # (A) 1.6 k/uL (1.0-4.8); Lymphocytes % (A) 19 %; MCH 31.1 pg (25.0-35.0); MCHC 31.7 g/dL (31.0-37.0); MCV 98.1 fL (80.0-100.0); Mean Platelet Volume 7.8; Monocytes # (A) 0.5 k/uL (0-1.0); Monocytes % (A) 6 %; Neutrophils # (A) 5.7 k/uL (1.3-7.7); Neutrophils % (A) 71 %; Platelet Count 265 k/uL (150-450); RBC 3.96 m/uL (3.80-5.40); RDW 12.2 % (11.5-15.5); WBC 8.1 k/uL (3.8-10.6)
--- NOTE | 2018-10-06 14:27 | XR ---
EXAMINATION TYPE: XR chest 1V portable DATE OF EXAM: 10/06/2018 COMPARISON: Chest x-ray and CTA chest September 21, 2017. HISTORY: Shortness of breath. TECHNIQUE: Single AP portable frontal upright view of the chest is obtained. FINDINGS: There is stable right suprahilar linear scarring and/or atelectasis. Elevated right hemidi aphragm is redemonstrated. There is patchy bibasilar linear scarring and/or atelectasis redemonstrate d. Overlying EKG leads are noted. There is no new suspicious focal air space opacity, pleural effusio n, or pneumothorax seen. The cardiac silhouette size remains mildly enlarged. The osseous structur es are intact. IMPRESSION: Chronic changes without acute pulmonary process. No significant change from recent studi es.
[2018-10-06 14:32] LABS: D-Dimer 0.2 mg/L FEU (<0.60); Partial Thromboplastin Time 27.7 sec (22.0-30.0); Prothrombin Time 10.8 sec (9.0-12.0)
[2018-10-06 14:34] LABS: ALT 32 U/L (9-52); AST 17 U/L (14-36); Albumin 3.6 g/dL (3.5-5.0); Alkaline Phosphatase 73 U/L (38-126); Anion Gap 6 mmol/L; Blood Urea Nitrogen 9 mg/dL (7-17); Calcium 9.2 mg/dL (8.4-10.2); Carbon Dioxide 36 mmol/L (22-30); Chloride 98 mmol/L (98-107); Glucose 118 mg/dL (74-99); Magnesium 1.5 mg/dL (1.6-2.3); Potassium 4.3 mmol/L (3.5-5.1); Sodium 140 mmol/L (137-145); Total Bilirubin 0.4 mg/dL (0.2-1.3); Total Protein 6.5 g/dL (6.3-8.2)
[2018-10-06] MEDS ORDERED: IPRATROPIUM-ALBUTEROL 3 ML NEB INHALATION STA (15:17)
[2018-10-06] MEDS ORDERED: FAMOTIDINE 20 MG/2 ML VIAL IV STA (15:23)
[2018-10-06] MEDS ORDERED: diphenhydrAMINE 50 MG/ML 1 ML VIAL IVP STA (15:23)
[2018-10-06] MEDS: MAGNESIUM SULFATE-D5W PMX 1 GM in DEXTROSE/WATER 1 100ML.BAG IVPB SCH ×2 (15:27→16:40)
--- NOTE | 2018-10-06 16:20 | CT ---
EXAMINATION TYPE: CT angio chest DATE OF EXAM: 10/06/2018 COMPARISON: 09/21/2017 HISTORY: 57-year-old female with pain, Shortness of breath TECHNIQUE: Contiguous axial scanning of the chest performed with IV Contrast, patient injected with 1 00, wasted 21 mL of Isovue 370. Coronal/sagittal MIP reconstructions performed. CT DLP: 533.5 mGycm Automated exposure control for dose reduction was used. FINDINGS: Heart borderline enlarged without pericardial effusion. Aorta normal caliber with conventional branching anatomy. No definite thoracic lymphadenopathy by CT size criteria. Assessment is very limited due to patient b reathing during the scan. This also degrades assessment for pulmonary embolus. Right perihilar soft tissue prominence, thickene d band of curvilinear density extending to the peripheral pleura, and associated 1 cm nodularity all appear grossly unchanged. Additional thickened bands of curvilinear density in the right greater than left lung bases remain un changed. The degree of motion artifact makes assessment for pulmonary embolus nondiagnostic aside from the mio tral arteries. It also limits assessment for small pulmonary nodules. There is some narrowing of the bilateral mainstem bronchi. Surgical clips at the GE junction likely relating to prior Adelina fundoplication. Liver appears borderline enlarged. Tiny adjacent splenule. Bones: Mild spondylosis mid thoracic spine. IMPRESSION: 1. THE PATIENT WAS BREATHING DURING THE SCAN. THIS MARKEDLY DEGRADES ASSESSMENT FOR PULMONARY EMBOLUS . NO LARGE CENTRAL/SADDLE EMBOLUS. OTHERWISE, PULMONARY EMBOLI CANNOT BE EXCLUDED ON THE BASIS OF THI S EXAM. 2. NARROWING OF THE BILATERAL MAINSTEM BRONCHI SUGGESTING UNDERLYING BRONCHOMALACIA. CLINICALLY CORRE LATE. 3. RIGHT HILAR SOFT TISSUE PROMINENCE WITH THICKENED BANDS OF OPACITY EXTENDING PERIPHERALLY TO THE P LEURAL SURFACE AND ASSOCIATED 1 CM NODULARITY, ESSENTIALLY UNCHANGED FROM 09/21/2017 SUGGESTING CHRONI C SCARRING. 4. ADDITIONAL BANDS OF PROBABLE SCARRING ARE REDEMONSTRATED IN THE RIGHT GREATER THAN LEFT LUNG BASES .
--- NOTE | 2018-10-06 16:35 | P.HPIM ---
History of Present Illness H&P Date: 10/06/18 Chief Complaint: Shortness of breath and chest pain This is a 57-year-old female, patient of Dr. Olea. She has a known past medical history of COPD, obstructive sleep apnea and has been without a CPAP or BiPAP for over a year due to insurance reasons, history of PE 2 last one was 2 years ago, seizures disorder, depression and fibromyalgia. Patient reports to the ER with complaints of worsening shortness of breath and chest heaviness. Patient's has had symptoms for about 4 days with no improvement. She states she usually takes 3 L of oxygen at home and has bumped up to 4. She was having no improvement with her nebulizer treatments. Chest x-ray was negative. D-dimer was negative. CT of the chest completed in ER. Troponin is negative and EKG normal sinus rhythm. Patient is on Xarelto for her PE she's been taking the medication as prescribed. Patient denies any fever, chills, sweats, nausea or vomiting, bowel movement changes or urinary symptoms. She denies any cardiac history. patient reports that her symptoms feel like her COPD. Patient was started on IV steroids and Zithromax and nebulizer treatments in ER. Pulmonary service has been consulted. Review of Systems Please refer to HPI otherwise unremarkable Past Medical History Past Medical History: COPD, Pulmonary Embolus (PE) Additional Past Medical History / Comment(s): epilesy, arthritis, fibromyalgia, depression History of Any Multi-Drug Resistant Organisms: MRSA Date of last positivie culture/infection: 03/22/09 MDRO Source:: Unknown Past Surgical History: Hernia Repair, Tonsillectomy Additional Past Surgical History / Comment(s): cyst removed from behind trachea, plastic surgery on face, Past Anesthesia/Blood Transfusion Reactions: No Reported Reaction Past Psychological History: Anxiety, Depression, Panic Disorder Smoking Status: Never smoker - Past Family History Father Additional Family Medical History / Comment(s): LUNG CANCER Mother Additional Family Medical History / Comment(s): CERVICAL CANCER Medications and Allergies Home Medications Medication Instructions Recorded Confirmed Type Albuterol Sulfate [Proair Hfa] 2 puff INHALATION RT-QID PRN 10/07/15 10/06/18 History DULoxetine HCL [Cymbalta] 60 mg PO BID capsule. 10/12/15 10/06/18 Rx Pregabalin [Lyrica] 75 mg PO BID cap 10/12/15 10/06/18 Rx Divalproex [Depakote] 500 mg PO TID #90 tablet. 10/15/15 10/06/18 Rx levETIRAcetam [Keppra] 750 mg PO Q12HR #60 tab 10/15/15 10/06/18 Rx Morphine Sulfate ER [Ms Contin] 15 mg PO Q12HR 09/22/17 10/06/18 History ALPRAZolam [Xanax] 0.25 mg PO QID 10/06/18 10/06/18 History Diphenoxylate HCl/Atropine 2 tab PO BID PRN 10/06/18 10/06/18 History [Lomotil 2.5-0.025 mg Tablet] Ensure 1 can PO QID 10/06/18 10/06/18 History Ipratropium-Albuterol Nebulize 3 ml INHALATION RT-BID 10/06/18 10/06/18 History [Duoneb 0.5 mg-3 mg/3 ml Soln] Montelukast Sodium [Singulair] 10 mg PO HS 10/06/18 10/06/18 History Rivaroxaban [Xarelto] 20 mg PO DAILY 10/06/18 10/06/18 History Simvastatin [Zocor] 20 mg PO HS 10/06/18 10/06/18 History Vitamin A 8,000 unit PO DAILY 10/06/18 10/06/18 History Allergies Allergy/AdvReac Type Severity Reaction Status Date / Time hydrocodone bitartrate AdvReac Rapid Verified 10/06/18 14:10 [From [place]] Heart Rate iodine AdvReac Nausea & Verified 10/06/18 14:10 Vomiting seafood Allergy HIVES Uncoded 10/06/18 14:10 Physical Exam Vitals: Vital Signs Temp Pulse Resp BP Pulse Ox 10/06/18 15:34 93 10/06/18 15:23 90 10/06/18 15:12 98 F 88 20 132/54 100 10/06/18 14:09 92 10/06/18 13:40 90 10/06/18 13:26 97.7 F 71 16 154/63 95 Intake and Output 10/06/18 10/06/18 10/06/18 06:59 14:59 22:59 Other: Weight 104.326 kg Head normocephalic Neck supple Lungs tight bilaterally Heart regular rate and rhythm S1-S2, no rub or gallop Abdomen is soft nontender nondistended positive bowel sounds no hepatosplenomegaly Extremities no edema Neuro alert and orientated to 3 Results CBC & Chem 7: 10/06/18 13:57 10/06/18 13:57 Labs: Abnormal Lab Results - Last 24 Hours (Table) 10/06/18 Range/Units 13:57 Carbon Dioxide 36 H (22-30) mmol/L Creatinine 0.41 L (0.52-1.04) mg/dL Glucose 118 H (74-99) mg/dL Magnesium 1.5 L (1.6-2.3) mg/dL Assessment and Plan Assessment: 1. Acute COPD exacerbation: Continue IV Solu-Medrol and bronchodilators. Consult pulmonary service 2. Acute tracheobronchitis: Continue azithromycin. Consult infectious disease. No pneumonia on chest x-ray 3. Shortness of breath with chest pain possibly related to her COPD exacerbation. CT of the chest has been ordered in ER. D-dimer negative. Tr oponin negative. EKG normal sinus rhythm 4. Hypomagnesemia patient receiving magnesium supplement. Repeat magnesium in a.m. 5. Obstructive sleep apnea patient has not been using BiPAP she is having issues with insurance. We'll consult wrapper caser 6. Morbid obesity 7. History of pulmonary embolism 2 on Xarelto. Last PE roughly 2 years ago 8. History of seizure disorder continue seizure medications 9. Depression 10 fibromyalgia GI prophylaxis Pepcid and DVT prophylaxis Xarelto Time with Patient: Greater than 30 (Greater than 50% of the total time spent in counseling and coordination of care.I performed an examination of the patient and discussed their management with the physician Wagon Driller. I have reviewed the Physician Wagon Driller's notes and agree with the documented findings and plan of care)
--- NOTE | 2018-10-06 17:21 | P.CNPUL ---
History of Present Illness Consult date: 10/06/18 Reason for consult: dyspnea, cough Chief complaint: Chest heaviness shortness of breath and intermittent wheezing for 4 days History of present illness: 57-year-old morbidly obese female well-known to me with history of sleep disorder breathing and sleep apnea has been recommended for a BiPAP but couldn't obtain a due to insurance reason, patient has been off of it for over a year patient also has a history of multiple pulmonary embolism in the past she presented to the emergency department due to chest heaviness and shortness of breath, patient did not improve significantly with nebulizer therapy has been admitted into the hospital, chest x-ray and computed tomography scan of the chest has been reviewed Review of Systems All systems: negative Past Medical History Past Medical History: COPD, Pulmonary Embolus (PE) Additional Past Medical History / Comment(s): epilesy, arthritis, fibromyalgia, depression History of Any Multi-Drug Resistant Organisms: MRSA Date of last positivie culture/infection: 03/22/09 MDRO Source:: Unknown Past Surgical History: Hernia Repair, Tonsillectomy Additional Past Surgical History / Comment(s): cyst removed from behind trachea, plastic surgery on face, Past Anesthesia/Blood Transfusion Reactions: No Reported Reaction Past Psychological History: Anxiety, Depression, Panic Disorder Smoking Status: Never smoker - Past Family History Father Additional Family Medical History / Comment(s): LUNG CANCER Mother Additional Family Medical History / Comment(s): CERVICAL CANCER Medications and Allergies Home Medications Medication Instructions Recorded Confirmed Type Albuterol Sulfate [Proair Hfa] 2 puff INHALATION RT-QID PRN 10/07/15 10/06/18 History DULoxetine HCL [Cymbalta] 60 mg PO BID capsule. 10/12/15 10/06/18 Rx Pregabalin [Lyrica] 75 mg PO BID cap 10/12/15 10/06/18 Rx Divalproex [Depakote] 500 mg PO TID #90 tablet. 10/15/15 10/06/18 Rx levETIRAcetam [Keppra] 750 mg PO Q12HR #60 tab 10/15/15 10/06/18 Rx Morphine Sulfate ER [Ms Contin] 15 mg PO Q12HR 09/22/17 10/06/18 History ALPRAZolam [Xanax] 0.25 mg PO QID 10/06/18 10/06/18 History Diphenoxylate HCl/Atropine 2 tab PO BID PRN 10/06/18 10/06/18 History [Lomotil 2.5-0.025 mg Tablet] Ensure 1 can PO QID 10/06/18 10/06/18 History Ipratropium-Albuterol Nebulize 3 ml INHALATION RT-BID 10/06/18 10/06/18 History [Duoneb 0.5 mg-3 mg/3 ml Soln] Montelukast Sodium [Singulair] 10 mg PO HS 10/06/18 10/06/18 History Rivaroxaban [Xarelto] 20 mg PO DAILY 10/06/18 10/06/18 History Simvastatin [Zocor] 20 mg PO HS 10/06/18 10/06/18 History Vitamin A 8,000 unit PO DAILY 10/06/18 10/06/18 History Allergies Allergy/AdvReac Type Severity Reaction Status Date / Time hydrocodone bitartrate AdvReac Rapid Verified 10/06/18 14:10 [From [place]] Heart Rate iodine AdvReac Nausea & Verified 10/06/18 14:10 Vomiting seafood Allergy HIVES Uncoded 10/06/18 14:10 Physical Exam Vitals: Vital Signs Temp Pulse Resp BP Pulse Ox 10/06/18 16:40 98.6 F 97 20 120/61 99 10/06/18 15:34 93 10/06/18 15:23 90 10/06/18 15:12 98 F 88 20 132/54 100 10/06/18 14:09 92 10/06/18 13:40 90 10/06/18 13:26 97.7 F 71 16 154/63 95 Intake and Output 10/06/18 10/06/18 10/06/18 06:59 14:59 22:59 Other: Weight 104.326 kg - Constitutional General appearance: cooperative, disheveled, morbidly obese - EENT Eyes: EOMI, PERRLA, poor dentition, normal appearance Ears: bilateral: normal - Neck Neck: normal ROM Carotids: bilateral: upstroke normal Thyroid: bilateral: normal size - Respiratory Respiratory: bilateral: diminished, wheezing (Fine on force expiration), negative: dullness, rales, rhonchi, prolonged expiration, prolonged inspiration, other - Cardiovascular Rhythm: regular Heart sounds: normal: S1, S2 - Gastrointestinal General gastrointestinal: normal bowel sounds, soft - Integumentary Integumentary: normal - Neurologic Neurologic: CNII-XII intact - Musculoskeletal Musculoskeletal: gait normal, generalized weakness, strength equal bilaterally - Psychiatric Psychiatric: A&O x's 3, appropriate affect, intact judgment & insight Results - Laboratory Findings CBC and BMP: 10/06/18 13:57 10/06/18 13:57 PT/INR, D-dimer PT 10.8 sec (9.0-12.0) 10/06/18 13:57 INR 1.0 (<1.2) 10/06/18 13:57 D-Dimer 0.20 mg/L FEU (<0.60) 10/06/18 13:57 Abnormal lab findings: Abnormal Labs 10/06/18 13:57 Carbon Dioxide 36 H Creatinine 0.41 L Glucose 118 H Magnesium 1.5 L - Diagnostic Findings Chest x-ray: report reviewed, image reviewed CT scan - chest: report reviewed, image reviewed (Chest x-ray is unremarkable however computed tomography scan of his chest chest revealed some scarring at the bases along with soft tissue thickening which is essentially unchanged since August 2017) Assessment and Plan Assessment: Acute COPD exacerbation Tracheobronchitis Sleep disorder breathing and sleep apnea Severe morbid obesity History of prior recurrent pulmonary embolism patient has been on long-term anticoagulation History of seizure disorder Mood disorder depression Plan: Agree with broad-spectrum antibiotics breathing treatments and antibiotics Further evaluation outpatient setting for sleep disorder breathing and sleep apnea Agree with the showcase trimmer evaluation for arrangement of CPAP if possible Follow clinical course closely further recommendations pending Time with Patient: Greater than 30
[2018-10-06] MEDS: IPRATROPIUM-ALBUTEROL 3 ML NEB INHALATION SCH ×2 (17:27→19:36)
[2018-10-06] MEDS: SODIUM CHLORIDE 0.9% 1,000 ML IV SCH ×2 (17:27→23:23)
[2018-10-06] MEDS: methylPREDNISolone SOD SUCCI 125 MG/2 ML VIAL IV SCH ×2 (17:45→23:23)
[2018-10-06] MEDS: ALPRAZolam 0.25 MG TAB PO SCH ×2 (17:45→20:27)
[2018-10-06 17:59] VITALS: BMI 44.9
[2018-10-06] MEDS ORDERED: NON-FORMULARY DRUG (Ensure 1 CAN) PO SCH (18:00)
[2018-10-06] MEDS: DIPHENOX-ATROP 2.5-0.025 MG 1 EACH TAB PO PRN (20:27)
[2018-10-06] MEDS: ATORVASTATIN 10 MG TAB PO SCH (20:27)
[2018-10-06] MEDS: MORPHINE SULFATE ER 15 MG TABLET PO SCH (20:27)
[2018-10-06] MEDS: MONTELUKAST 10 MG TAB PO SCH (20:27)
[2018-10-06] MEDS: PREGABALIN 75 MG CAP PO SCH (20:27)
[2018-10-06] MEDS: DULoxetine HCL 60 MG CAPSULE.DR PO SCH (20:28)
[2018-10-06] MEDS: DIVALPROEX 500 MG TABLET.DR PO SCH (20:28)
[2018-10-07] MEDS: methylPREDNISolone SOD SUCCI 125 MG/2 ML VIAL IV SCH ×4 (05:23→23:57)
[2018-10-07] MEDS: IPRATROPIUM-ALBUTEROL 3 ML NEB INHALATION SCH ×4 (07:14→19:12)
[2018-10-07] MEDS: PREGABALIN 75 MG CAP PO SCH ×2 (08:12→19:57)
[2018-10-07] MEDS: AZITHROMYCIN 500 MG TAB PO SCH (08:12)
[2018-10-07] MEDS: RIVAROXABAN 20 MG TAB PO SCH (08:12)
[2018-10-07] MEDS: ALPRAZolam 0.25 MG TAB PO SCH ×4 (08:12→23:57)
[2018-10-07] MEDS: DULoxetine HCL 60 MG CAPSULE.DR PO SCH ×2 (08:12→19:58)
[2018-10-07 08:13] LABS: Basophils % (A) 0 %; Eosinophils % (A) 0 %; HCT 40.4 % (34.0-46.0); HGB 12.6 gm/dL (11.4-16.0); Lymphocytes % (A) 11 %; MCH 31.2 pg (25.0-35.0); MCHC 31.3 g/dL (31.0-37.0); MCV 99.7 fL (80.0-100.0); Mean Platelet Volume 7.4; Monocytes # (A) 0.1 k/uL (0-1.0); Monocytes % (A) 2 %; Neutrophils # (A) 7.8 k/uL (1.3-7.7); Neutrophils % (A) 86 %; Platelet Count 289 k/uL (150-450); RBC 4.05 m/uL (3.80-5.40); RDW 12.3 % (11.5-15.5)
[2018-10-07] MEDS: DIVALPROEX 500 MG TABLET.DR PO SCH ×3 (08:13→23:57)
[2018-10-07] MEDS: FAMOTIDINE 20 MG TAB PO SCH (08:13)
[2018-10-07] MEDS: VITAMIN A 8,000 UNITS PO SCH (08:19)
[2018-10-07] MEDS: DIPHENOX-ATROP 2.5-0.025 MG 1 EACH TAB PO PRN (08:19)
[2018-10-07 08:21] LABS: ALT 24 U/L (9-52); AST 18 U/L (14-36); Albumin 3.7 g/dL (3.5-5.0); Alkaline Phosphatase 77 U/L (38-126); Anion Gap 9 mmol/L; Blood Urea Nitrogen 11 mg/dL (7-17); Calcium 9.2 mg/dL (8.4-10.2); Carbon Dioxide 33 mmol/L (22-30); Chloride 99 mmol/L (98-107); Glucose 156 mg/dL (74-99); Magnesium 2.1 mg/dL (1.6-2.3); Potassium 4.4 mmol/L (3.5-5.1); Sodium 141 mmol/L (137-145); Total Bilirubin 0.3 mg/dL (0.2-1.3); Total Protein 6.7 g/dL (6.3-8.2)
[2018-10-07] MEDS ORDERED: ENOXAPARIN 40 MG/0.4 ML SYRINGE SQ SCH (09:00)
--- NOTE | 2018-10-07 09:27 | P.PN ---
Subjective Progress Note Date: 10/07/18 Principal diagnosis: Acute COPD exacerbation, tracheobronchitis, severe degree of sleep disorder breathing and sleep apnea, morbid obesity, history of prior recurrent pulmonary embolism on lifelong anticoagulation with oral anticoagulants 10/07/2018, patient seen eval examined during the rounds clinically has been doing better in terms of breathing was still of ongoing cough congestion shortness of breath severity is slightly better patient is being treated with steroids breathing treatments and antibiotics tolerating well 62-year-old female with ongoing history of fall smoking quit about 3 years ago she has smoked one to 2 packs per day for about 40 years, patient has been under too much stress related to her mother's illness lately she has been staying with her mother while at work patient developed severe chest tightness and pain was brought into emergency department for further evaluation given the presentation acute onset of chest pain high index of suspicion is for acute CT considering patient underwent emergent cardiac cath and angiogram, no significant coronary artery disease however is noted I was asked to evaluate further given ongoing history of loose wheezing cough and congestion Objective - Vital Signs Vital signs: Vital Signs Temp 97.5 F L 10/07/18 04:51 Pulse 62 10/07/18 07:26 Resp 16 10/07/18 04:51 BP 159/79 10/07/18 04:51 Pulse Ox 98 10/07/18 07:14 Intake & Output 10/06/18 10/07/18 10/07/18 18:59 06:59 18:59 Weight 104.326 kg Other: # Voids 1 - Exam - Constitutional General appearance: cooperative, disheveled, morbidly obese - EENT Eyes: EOMI, PERRLA, poor dentition, normal appearance Ears: bilateral: normal - Neck Neck: normal ROM Carotids: bilateral: upstroke normal Thyroid: bilateral: normal size - Respiratory Respiratory: bilateral: diminished, wheezing (Fine on force expiration), negative: dullness, rales, rhonchi, prolonged expiration, prolonged inspiration, other - Cardiovascular Rhythm: regular Heart sounds: normal: S1, S2 - Gastrointestinal General gastrointestinal: normal bowel sounds, soft - Integumentary Integumentary: normal - Neurologic Neurologic: CNII-XII intact - Musculoskeletal Musculoskeletal: gait normal, generalized weakness, strength equal bilaterally - Psychiatric Psychiatric: A&O x's 3, appropriate affect, intact judgment & insight - Labs CBC & Chem 7: 03/15/19 07:17 10/07/18 07:17 Labs: Abnormal Lab Results - Last 24 Hours (Table) 10/06/18 10/07/18 10/07/18 Range/Units 13:57 07:17 07:17 Neutrophils # 7.8 H (1.3-7.7) k/uL Carbon Dioxide 36 H 33 H (22-30) mmol/L Creatinine 0.41 L 0.43 L (0.52-1.04) mg/dL Glucose 118 H 156 H (74-99) mg/dL Magnesium 1.5 L (1.6-2.3) mg/dL Assessment and Plan Assessment: Acute COPD exacerbation Tracheobronchitis Sleep disorder breathing and sleep apnea Severe morbid obesity History of prior recurrent pulmonary embolism patient has been on long-term anticoagulation History of seizure disorder Mood disorder depression Plan: Agree with broad-spectrum antibiotics breathing treatments and antibiotics Further evaluation outpatient setting for sleep disorder breathing and sleep apnea Agree with the family preservation caseworker evaluation for arrangement of CPAP if possible Follow clinical course closely further recommendations pending Time with Patient: Greater than 30
[2018-10-07] MEDS: MORPHINE SULFATE ER 15 MG TABLET PO SCH ×2 (10:54→19:57)
--- NOTE | 2018-10-07 10:59 | P.PN ---
Subjective Progress Note Date: 10/07/18 This is a 57-year-old female, patient of Dr. Olea. She has a known past medical history of COPD, obstructive sleep apnea and has been without a CPAP or BiPAP for over a year due to insurance reasons, history of PE 2 last one was 2 years ago, seizures disorder, depression and fibromyalgia. Patient reports to the ER with complaints of worsening shortness of breath and chest heaviness. Patient's has had symptoms for about 4 days with no improvement. She states she usually takes 3 L of oxygen at home and has bumped up to 4. She was having no improvement with her nebulizer treatments. Chest x-ray was negative. D-dimer was negative. CT of the chest completed in ER. Troponin is negative and EKG normal sinus rhythm. Patient is on Xarelto for her PE she's been taking the medication as prescribed. Patient denies any fever, chills, sweats, nausea or vomiting, bowel movement changes or urinary symptoms. She denies any cardiac history. patient reports that her symptoms feel like her COPD. Patient was started on IV steroids and Zithromax and nebulizer treatments in ER. Pulmonary service has been consulted. 10/07/2018 patient reporting improvement in her shortness of breath and chest h eaviness. She still has some shortness of breath when she walks to the bathroom. Requiring 4 L of oxygen. She is usually on 3 L of oxygen at home. She is satting at 98%. Patient denies any nausea vomiting. Denies any bowel movement changes or urinary symptoms. Objective - Vital Signs Vital signs: Vital Signs Temp 97.5 F L 10/07/18 04:51 Pulse 70 10/07/18 10:23 Resp 16 10/07/18 10:23 BP 159/79 10/07/18 04:51 Pulse Ox 98 10/07/18 07:14 Intake & Output 10/06/18 10/07/18 10/07/18 18:59 06:59 18:59 Weight 104.326 kg Other: # Voids 1 # Bowel Movements 1 - Exam Head normocephalic Neck supple Lungs diminished bilaterally no wheezing or crackles Heart regular rate and rhythm S1-S2, no rub or gallop Abdomen is soft nontender nondistended positive bowel sounds no hepatosplenomegaly Extremities no edema Neuro alert and orientated to 3 - Labs CBC & Chem 7: 10/07/18 07:17 10/07/18 07:17 Labs: Abnormal Lab Results - Last 24 Hours (Table) 10/06/18 10/07/18 10/07/18 Range/Units 13:57 07:17 07:17 Neutrophils # 7.8 H (1.3-7.7) k/uL Carbon Dioxide 36 H 33 H (22-30) mmol/L Creatinine 0.41 L 0.43 L (0.52-1.04) mg/dL Glucose 118 H 156 H (74-99) mg/dL Magnesium 1.5 L (1.6-2.3) mg/dL Assessment and Plan Assessment: 1. Acute COPD exacerbation: Continue IV Solu-Medrol and bronchodilators. Pulmonary following 2. Acute tracheobronchitis: Continue azithromycin and will add Rocephin. Consult infectious disease. No pneumonia on chest x-ray 3. Shortness of breath with chest pain possibly related to her COPD exacerbation. D-dimer negative. CTA of chest reviewed no evidence of a large central or saddle embolus. Troponin negative. EKG normal sinus rhythm 4. Hypomagnesemia : Resolved Repeat magnesium 2.1 5. Obstructive sleep apnea patient has not been using Cpap she is having issues with insurance. We'll consult case advocate 6. Morbid obesity 7. History of pulmonary embolism 2 on Xarelto. Last PE roughly 2 years ago 8. History of seizure disorder continue seizure medications 9. Depression 10. fibromyalgia GI prophylaxis Pepcid and DVT prophylaxis Xarelto I performed an examination of the patient and discussed their management with the physician Biology Adjunct Instructor. I have reviewed the Physician Biology Adjunct Instructor's notes and agree with the documented findings and plan of care
--- NOTE | 2018-10-07 12:07 | CONS ---
CONSULTATION DATE OF SERVICE: 10/06/2018 REASON FOR CONSULTATION: Tracheobronchitis. HISTORY OF PRESENT ILLNESS: The patient is a 57-year-old female with past medical history significant for COPD, obstructive sleep apnea, history of PE presenting to the ER at [facility] with complaints of the increased shortness of breath and chest pain. The patient felt like it was hard for her to breathe. The patient denies significant URI symptoms though of fever or chills. Denies significant cough or sputum production. No nausea, no vomiting. No abdominal pain or any diarrhea. With these symptoms, the patient was evaluated by the ER physician. On arrival to the ER, the patient did have a chest x-ray. This was chronic changes without acute pulmonary process. A CT angiogram was done with no large PE, did show some scarring, . The patient did not have any fever or elevated white count. The patient has been admitted to the hospital. She was started on steroids, bronchodilators and antibiotic. Infectious Disease was consulted for further recommendation regarding antibiotic therapy. REVIEW OF SYSTEMS: Positive points have been mentioned in HPI. Rest of the systems are negative. PAST MEDICAL HISTORY: COPD, pulmonary embolism, fibromyalgia, depression, epilepsy, arthritis. PAST SURGICAL HISTORY: Hernia repair, tonsillectomy and fundoplication. SOCIAL HISTORY: No history of smoking, drinking or drug use. FAMILY HISTORY: Father history of lung cancer. Mother with history of cervical cancer. ALLERGIES: Allergies to HYDROCODONE BITARTRATE and IODINE. MEDICATIONS: Medications include the patient is currently on DuoNeb, Xanax, Lipitor, Zithromax, , Lomotil, Depakote, Cymbalta, Pepcid, Keppra, Solu-Medrol. PHYSICAL EXAMINATION: On examination, blood pressure is 120/61 with a pulse of 97, temperature 98.6. She is 99% on 4 L nasal cannula. General description is a middle aged female lying in bed in no distress. No tachypnea or accessory muscle for respiration use. HEENT examination shows no pallor or scleral icterus. Oral mucous membrane is dry. No pharyngeal erythema or thrush. NECK: Trachea central. No thyromegaly. LUNGS: Unlabored breathing with decreased intensity of breath sounds, but no wheeze or crackles. HEART: S1, S2. Regular rate. ABDOMEN: Soft, no tenderness. No guarding or rigidity. EXTREMITIES: No edema of feet. SKIN EXAMINATION: No rash or mass palpable. NEUROLOGICAL: Patient is awake, alert, oriented x3. Mood and affect normal. LABS: Hemoglobin 12.3, white count 8.1. BUN of 9, creatinine 0.41. Electrolytes have been normal. Liver enzymes are normal. NT proBNP was 91. D-dimer was 0.20. DIAGNOSTIC IMPRESSION AND PLAN: The patient admitted to the hospital with increasing shortness of breath, chest pain in this patient who currently does not have any fever, cough or sputum production or elevated white count more likely chronic obstructive pulmonary disease in this patient with tracheobronchitis, clinically doubt pneumonia. PLAN: 1. We will try to obtain sputum culture and sensitivity. 2. To continue patient on Zithromax, bronchodilators and steroids. I will discontinue the Rocephin. We will follow on clinical condition and further adjust medication if needed. Thank you for this consultation. Will follow this patient along with you. MMKENNETHL / DORETHAN: [id number] /
[2018-10-07 14:28] LABS: Creatine Kinase 42 U/L (30-135)
--- NOTE | 2018-10-07 14:34 | CONS ---
CONSULTATION Mrs. Estes is a 57-year-old female with known history of chronic obstructive lung disease, prior history off pulmonary embolism, who presented to the emergency room with symptoms of progressive dyspnea. Cardiology consultation was requested because of symptoms of chest discomfort. The patient has a known history of chronic obstructive lung disease, chronic obstructive sleep apnea, history of pulmonary embolism, history of seizure disorder. She has been complaining of progressive dyspnea with mild cough, no wheezing. No peripheral edema. No clear PND, nor orthopnea. She has no documented history of coronary artery disease. She has no prior history of myocardial infarction or documented congestive heart failure. Her pulmonary embolism was documented in September of 2015. She had an echocardiogram performed in September of 2017 and at that time she had a preserved ventricular size and systolic function. She is not very active physically. She has not been followed by Cardiology. Her coronary risk factors are negative for smoking. She is nondiabetic. She is hyperlipidemic. MEDICATION: Include Keppra, simvastatin 20 mg daily, Xarelto 20 mg daily, Lyrica, MS Contin, Singulair, DuoNeb, Depakote, Lomotil, Cymbalta, ProAir, and Xanax. REVIEW OF SYSTEMS: RESPIRATORY SYSTEM: She had a history of chronic obstructive lung disease. She has occasional cough, no recent fever. GI SYSTEM: She has no nausea, no vomiting. No GI bleeding. SYSTEM: No dysuria or hematuria. NERVOUS SYSTEM: She has history of seizure. No history of stroke. PHYSICAL EXAMINATION: This is a 57-year-old female, alert, oriented, mildly dyspneic. Obese. Blood pressure 129/70 with a heart rate in the 70s. HEAD: Normocephalic. EYES: Sclerae nonicteric. NECK: Good upstroke, no bruit, no venous distention. LUNGS: Clear to auscultation. HEART: Regular rate and rhythm, S1, S2. No S3 with systolic murmur, 2/6 heard at the base. No diastolic murmur. No rub. ABDOMEN: Soft, nontender, obese. Positive bowel sounds, no organomegaly. EXTREMITIES: No edema, intact distal pulses. LAB DATA: Revealed troponin less than 0.012. BUN and creatinine of 9 and 0.41. Hemoglobin of 12.3. EKG reveals sinus mechanism with no acute ST-segment changes. Her CT angiogram of the chest was suboptimal but showed no evidence of large embolization. IMPRESSION: 1. Symptoms of dyspnea. No evidence to suggest congestive heart failure nor acute ischemic heart disease. 2. Symptoms of chest discomfort, atypical for ischemic heart disease, appears to be respiratory phasic pattern. 3. History of chronic obstructive lung disease. 4. History of pulmonary embolism. 5. Morbid obesity. 6. History of obstructive sleep apnea. 7. History of seizure disorder. RECOMMENDATION: From the cardiac standpoint, will follow the rest of the cardiac enzymes. I will obtain a repeat echocardiogram and depending on her progress, further recommendation will be made. Thank you for this consult. Will follow with you. MMODL / IJN: [id number] /
[2018-10-07 14:40] LABS: Creatine Kinase MB 0.5 ng/mL (0.0-2.4); Troponin I <0.012 ng/mL (0.000-0.034)
--- NOTE | 2018-10-07 18:08 | ECHOF ---
Referral Reason: MEASUREMENTS -------- HEIGHT: 154.9 cm WEIGHT: 104.3 kg BP: RVIDd: 2.7 cm (< 3.3) IVSd: 1.2 cm (0.6 - 1.1) LVIDd: 3.3 cm (3.9 - 5.3) LVPWd: 1.2 cm (0.6 - 1.1) IVSs: 1.5 cm LVIDs: 1.4 cm LVPWs: 1.6 cm LAESV Index (A-L): 11.99 ml/m Ao Diam: 2.9 cm (2.0 - 3.7) AV Cusp: 1.8 cm (1.5 - 2.6) LA Diam: 2.9 cm (2.7 - 3.8) MV EXCURSION: 14.273 mm (> 18.000) MV EF SLOPE: 71 mm/s (70 - 150) EPSS: 0.2 cm MV E Jagdeep: 1.19 m/s MV DecT: 201 ms MV A Jagdeep: 0.76 m/s MV E/A Ratio: 1.56 AV maxP.64 mmHg AV meanP.14 mmHg RAP: 5.00 mmHg RVSP: 31.98 mmHg FINDINGS -------- Sinus rhythm. This was a technically good study. The left ventricular size is normal. There is mild concentric left ventricular hypertrophy. Overa ll left ventricular systolic function is normal with, an EF between 55 - 60 %. The right ventricle is normal in size. Normal LA size by volume 22+/-6 ml/m2. The right atrial size is normal. The aortic valve is trileaflet and appears structurally normal. Peak/mean gradient across the Aorti c Valve is 20.64mmHg / 9.14mmHg. The mitral valve is normal. Mild mitral regurgitation is present. Mild tricuspid regurgitation present. Right ventricular systolic pressure is normal at < 35 mmHg. The right ventricular systolic pressure, as measured by Doppler, is 31.98mmHg. There is no pulmonic regurgitation present. The aortic root size is normal. IVC Not well visulized. There is no pericardial effusion. CONCLUSIONS -------- 1. Sinus rhythm. 2. This was a technically good study. 3. The left ventricular size is normal. 4. There is mild concentric left ventricular hypertrophy. 5. Overall left ventricular systolic function is normal with, an EF between 55 - 60 %. 6. Normal LA size by volume 22+/-6 ml/m2. 7. The aortic valve is trileaflet and appears structurally normal. 8. Peak/mean gradient across the Aortic Valve is 20.64mmHg / 9.14mmHg. 9. Mild mitral regurgitation is present. 10. Mild tricuspid regurgitation present. 11. Right ventricular systolic pressure is normal at < 35 mmHg. 12. There is no pulmonic regurgitation present. 13. The aortic root size is normal. 14. IVC Not well visulized. 15. There is no pericardial effusion. BAY STOCKER: Dee Dee Baig RDCS
[2018-10-07] MEDS: MONTELUKAST 10 MG TAB PO SCH (19:58)
[2018-10-07] MEDS: ATORVASTATIN 10 MG TAB PO SCH (19:58)
[2018-10-07 20:58] LABS: Creatine Kinase 48 U/L (30-135)
[2018-10-07 21:12] LABS: Creatine Kinase MB 0.6 ng/mL (0.0-2.4); Troponin I <0.012 ng/mL (0.000-0.034)
--- NOTE | 2018-10-07 23:10 | PN ---
PROGRESS NOTE DATE OF SERVICE: 10/07/2018. REASON FOR FOLLOW UP: Tracheobronchitis. INTERVAL HISTORY: The patient is currently afebrile. She is breathing more comfortably. She is complaining mostly of chest pain central pressure-like for which Cardiology was consulted. Cardiac enzymes have been so far no negative. No nausea or vomiting, no diarrhea. PHYSICAL EXAMINATION: Blood pressure is 129/77 with a pulse of 73, temperature 98. She is 97% on room air. General description is a middle aged female, lying in bed in no distress. Respiratory system: Unlabored breathing. Clear to auscultation anteriorly. Heart S1, S2. Regular rate and rhythm. Abdomen soft, no tenderness. LAB: Hemoglobin is 12.2, white count of 9.0, BUN of 9, creatinine 0.43. Blood culture has been negative. DIAGNOSTIC IMPRESSION AND PLAN: Patient admitted to the hospital with chest pain, shortness of breath with a question of possible cardiac etiology. Cardiology has been consulted. Tracheobronchitis not entirely excluded, more likely viral . Currently covered with Zithromax and steroids and bronchodilators to continue post surgery and continue supportive care. MMODL / IJN: [id number] /
[2018-10-08 05:52] LABS: Basophils % (A) 0 %; Eosinophils # (A) 0.1 k/uL (0-0.7); Eosinophils % (A) 1 %; HCT 37.1 % (34.0-46.0); Lymphocytes # (A) 0.9 k/uL (1.0-4.8); Lymphocytes % (A) 9 %; MCH 32.4 pg (25.0-35.0); MCHC 32.4 g/dL (31.0-37.0); MCV 100.1 fL (80.0-100.0); Mean Platelet Volume 7.4; Monocytes # (A) 0.3 k/uL (0-1.0); Monocytes % (A) 3 %; Neutrophils # (A) 8.3 k/uL (1.3-7.7); Neutrophils % (A) 87 %; Platelet Count 263 k/uL (150-450); RBC 3.71 m/uL (3.80-5.40); RDW 12.3 % (11.5-15.5); WBC 9.5 k/uL (3.8-10.6)
[2018-10-08] MEDS: methylPREDNISolone SOD SUCCI 125 MG/2 ML VIAL IV SCH ×2 (05:56→12:57)
[2018-10-08 06:02] LABS: ALT 26 U/L (9-52); AST 13 U/L (14-36); Albumin 3.4 g/dL (3.5-5.0); Alkaline Phosphatase 64 U/L (38-126); Anion Gap 5 mmol/L; Blood Urea Nitrogen 17 mg/dL (7-17); Calcium 9.4 mg/dL (8.4-10.2); Carbon Dioxide 37 mmol/L (22-30); Chloride 99 mmol/L (98-107); Glucose 202 mg/dL (74-99); Potassium 4.9 mmol/L (3.5-5.1); Sodium 141 mmol/L (137-145); Total Bilirubin 0.2 mg/dL (0.2-1.3); Total Protein 6.4 g/dL (6.3-8.2)
[2018-10-08 06:14] LABS: Creatine Kinase 38 U/L (30-135)
[2018-10-08 06:27] LABS: Creatine Kinase MB 0.6 ng/mL (0.0-2.4); Troponin I <0.012 ng/mL (0.000-0.034)
[2018-10-08] MEDS: IPRATROPIUM-ALBUTEROL 3 ML NEB INHALATION SCH ×4 (07:48→19:21)
[2018-10-08] MEDS: DIVALPROEX 500 MG TABLET.DR PO SCH ×3 (08:06→22:24)
[2018-10-08] MEDS: DULoxetine HCL 60 MG CAPSULE.DR PO SCH ×2 (08:06→22:24)
[2018-10-08] MEDS: AZITHROMYCIN 500 MG TAB PO SCH (08:06)
[2018-10-08] MEDS: RIVAROXABAN 20 MG TAB PO SCH (08:07)
[2018-10-08] MEDS: VITAMIN A 8,000 UNITS PO SCH (08:07)
[2018-10-08] MEDS: FAMOTIDINE 20 MG TAB PO SCH (08:07)
[2018-10-08] MEDS: ALPRAZolam 0.25 MG TAB PO SCH ×4 (08:07→22:22)
[2018-10-08] MEDS: PREGABALIN 75 MG CAP PO SCH ×2 (08:07→22:22)
[2018-10-08] MEDS: MORPHINE SULFATE ER 15 MG TABLET PO SCH ×2 (10:17→22:22)
--- NOTE | 2018-10-08 13:01 | P.PN ---
Subjective Progress Note Date: 10/08/18 Principal diagnosis: Acute COPD exacerbation, tracheobronchitis, severe degree of sleep disorder breathing and sleep apnea, morbid obesity, history of prior recurrent pulmonary embolism on lifelong anticoagulation with oral anticoagulants 10/08/2018, patient seen eval examined during the rounds clinically has been doing well awake and alert care plan discussed with the director of casework department at length patient had issues associated with BiPAP ST mode will have been changed to BiPAP as more data prescriptions have been written office notes and other data has been also forwarded from the office as well hopefully patient should be able to get the BiPAP machine now on outpatient setting, will continue current plan of care for now further 24-48 hours patient is currently not ready for discharge 10/07/2018, patient seen eval examined during the rounds clinically has been doing better in terms of breathing was still of ongoing cough congestion shortness of breath severity is slightly better patient is being treated with steroids breathing treatments and antibiotics tolerating well 62-year-old female with ongoing history of fall smoking quit about 3 years ago she has smoked one to 2 packs per day for about 40 years, patient has been under too much stress related to her mother's illness lately she has been staying with her mother while at work patient developed severe chest tightness and pain was brought into emergency department for further evaluation given the presentation acute onset of chest pain high index of suspicion is for acute RI considering patient underwent emergent cardiac cath and angiogram, no significant coronary artery disease however is noted I was asked to evaluate further given ongoing history of loose wheezing cough and congestion Objective - Vital Signs Vital signs: Vital Signs Temp 98.5 F 10/08/18 11:47 Pulse 80 10/08/18 11:52 Resp 18 10/08/18 11:47 BP 134/64 10/08/18 11:47 Pulse Ox 96 10/08/18 11:47 Intake & Output 10/07/18 10/08/18 10/08/18 18:59 06:59 18:59 Intake Total 1740 Balance 1740 Intake: Intake, IV Titration 800 Amount Sodium Chloride 0.9% 1, 800 000 ml @ 100 mls/hr IV . Q10H BABATUNDE Rx#:[id number] Oral 940 Other: # Voids 1 2 # Bowel Movements 1 - Exam - Constitutional General appearance: cooperative, disheveled, morbidly obese - EENT Eyes: EOMI, PERRLA, poor dentition, normal appearance Ears: bilateral: normal - Neck Neck: normal ROM Carotids: bilateral: upstroke normal Thyroid: bilateral: normal size - Respiratory Respiratory: bilateral: diminished, wheezing (Fine on force expiration), negative: dullness, rales, rhonchi, prolonged expiration, prolonged inspiration, other - Cardiovascular Rhythm: regular Heart sounds: normal: S1, S2 - Gastrointestinal General gastrointestinal: normal bowel sounds, soft - Integumentary Integumentary: normal - Neurologic Neurologic: CNII-XII intact - Musculoskeletal Musculoskeletal: gait normal, generalized weakness, strength equal bilaterally - Psychiatric Psychiatric: A&O x's 3, appropriate affect, intact judgment & insight - Labs CBC & Chem 7: 10/08/18 05:35 10/08/18 05:35 Labs: Abnormal Lab Results - Last 24 Hours (Table) 10/08/18 10/08/18 Range/Units 05:35 05:35 RBC 3.71 L (3.80-5.40) m/uL MCV 100.1 H (80.0-100.0) fL Neutrophils # 8.3 H (1.3-7.7) k/uL Lymphocytes # 0.9 L (1.0-4.8) k/uL Carbon Dioxide 37 H (22-30) mmol/L Creatinine 0.40 L (0.52-1.04) mg/dL Glucose 202 H (74-99) mg/dL AST 13 L (14-36) U/L Albumin 3.4 L (3.5-5.0) g/dL Microbiology - Last 24 Hours (Table) 10/06/18 13:57 Blood Culture - Preliminary Blood No Growth after 24 hours Assessment and Plan Assessment: Acute COPD exacerbation Tracheobronchitis Sleep disorder breathing and sleep apnea Severe morbid obesity History of prior recurrent pulmonary embolism patient has been on long-term anticoagulation History of seizure disorder Mood disorder depression Plan: Agree with broad-spectrum antibiotics breathing treatments and antibiotics Further evaluation outpatient setting for sleep disorder breathing and sleep apnea Agree with the director of casework department evaluation for arrangement of CPAP if possible Follow clinical course closely further recommendations pending Time with Patient: Greater than 30
--- NOTE | 2018-10-08 14:24 | P.PN ---
Subjective Progress Note Date: 10/08/18 This is a 57-year-old female, patient of Dr. Olea. She has a known past medical history of COPD, obstructive sleep apnea and has been without a CPAP or BiPAP for over a year due to insurance reasons, history of PE 2 last one was 2 years ago, seizures disorder, depression and fibromyalgia. Patient reports to the ER with complaints of worsening shortness of breath and chest heaviness. Patient's has had symptoms for about 4 days with no improvement. She states she usually takes 3 L of oxygen at home and has bumped up to 4. She was having no improvement with her nebulizer treatments. Chest x-ray was negative. D-dimer was negative. CT of the chest completed in ER. Troponin is negative and EKG normal sinus rhythm. Patient is on Xarelto for her PE she's been taking the medication as prescribed. Patient denies any fever, chills, sweats, nausea or vomiting, bowel movement changes or urinary symptoms. She denies any cardiac history. patient reports that her symptoms feel like her COPD. Patient was started on IV steroids and Zithromax and nebulizer treatments in ER. Pulmonary service has been consulted. 10/07/2018 patient reporting improvement in her shortness of breath and chest heaviness. She still has some shortness of breath when she walks to the bathroom. Requiring 4 L of oxygen. She is usually on 3 L of oxygen at home. She is satting at 98%. Patient denies any nausea vomiting. Denies any bowel movement changes or urinary symptoms. On 10/08/2018 patient was seen and examined on the medical floor she is alert and oriented 3 in no apparent distress there is no fever or chills no headache or dizziness shortness of breath is improving there is no chest pain she is still complaining of cough there is no nausea or vomiting no abdominal pain no diarrhea and no urinary symptoms Objective - Vital Signs Vital signs: Vital Signs Temp 98.5 F 10/08/18 11:47 Pulse 80 10/08/18 11:52 Resp 18 10/08/18 11:47 BP 134/64 10/08/18 11:47 Pulse Ox 96 10/08/18 11:47 Intake & Output 10/07/18 10/08/18 10/08/18 18:59 06:59 18:59 Intake Total 1740 Balance 1740 Intake: Intake, IV Titration 800 Amount Sodium Chloride 0.9% 1, 800 000 ml @ 100 mls/hr IV . Q10H BABATUNDE Rx#:[id number] Oral 940 Other: # Voids 1 2 # Bowel Movements 1 - Exam Head normocephalic and atraumatic Neck supple no JVD no goiter Lungs diminished bilaterally no wheezing or crackles Heart regular rate and rhythm S1-S2, no rub or gallop Abdomen is soft nontender nondistended positive bowel sounds no hepatospl enomegaly Extremities no edema no cyanosis or clubbing Neuro alert and orientated to 3 - Labs CBC & Chem 7: 10/08/18 05:35 10/08/18 05:35 Labs: Abnormal Lab Results - Last 24 Hours (Table) 10/08/18 10/08/18 Range/Units 05:35 05:35 RBC 3.71 L (3.80-5.40) m/uL MCV 100.1 H (80.0-100.0) fL Neutrophils # 8.3 H (1.3-7.7) k/uL Lymphocytes # 0.9 L (1.0-4.8) k/uL Carbon Dioxide 37 H (22-30) mmol/L Creatinine 0.40 L (0.52-1.04) mg/dL Glucose 202 H (74-99) mg/dL AST 13 L (14-36) U/L Albumin 3.4 L (3.5-5.0) g/dL Microbiology - Last 24 Hours (Table) 10/06/18 13:57 Blood Culture - Preliminary Blood No Growth after 24 hours Assessment and Plan Plan: 1. Acute COPD exacerbation: Continue IV SoluMedrol and bronchodilators. Pulmonary following 2. Acute tracheobronchitis: Continue azithromycin and will add Rocephin. Consult infectious disease. No pneumonia on chest x-ray 3. Shortness of breath with chest pain possibly related to her COPD exacerbation. D-dimer negative. CTA of chest reviewed no evidence of a large central or saddle embolus. Troponin negative. EKG normal sinus rhythm 4. Hypomagnesemia : Resolved Repeat magnesium 2.1 5. Obstructive sleep apnea patient has not been using Cpap she is having issues with insurance. We'll consult returned case inspector 6. Morbid obesity 7. History of pulmonary embolism 2 on Xarelto. Last PE roughly 2 years ago 8. History of seizure disorder continue seizure medications 9. Depression 10. fibromyalgia GI prophylaxis Pepcid and DVT prophylaxis Xarelto
--- NOTE | 2018-10-08 17:04 | PN ---
PROGRESS NOTE DATE OF SERVICE: 10/08/2018. REASON FOR FOLLOWUP: Tracheobronchitis and question of pneumonia. INTERVAL HISTORY: The patient is afebrile. The patient has been breathing comfortably. The chest pain has improved. Denies significant cough or sputum production. No nausea, no vomiting. No abdominal pain. No diarrhea. PHYSICAL EXAMINATION: Blood pressure is 134/64 with a pulse of 88, temperature 98.5. She is 96% on 4 L nasal cannula. General description is a middle aged female, lying in bed in no distress. Respiratory system: Unlabored breathing. Clear to auscultation anteriorly. Heart S1, S2. Regular rate and rhythm. Abdomen soft, no tenderness. LABS: Hemoglobin is 12. White 9.5. BUN of 17, creatinine 0.40. Blood culture has been negative. DIAGNOSTIC IMPRESSION AND PLAN: Patient admitted to the hospital with chest pain, difficulty breathing. The patient did have extensive workup. Chest CT was negative for PE or significant consolidation. Echocardiogram was negative concern for tracheobronchitis the patient currently covered with Zithromax, steroids and bronchodilators to continue for now while monitoring the clinical course closely. Continue supportive care. MMODL / IJN: [id number] /
--- NOTE | 2018-10-08 18:35 | CONS ---
CONSULTATION Mrs Estes is clinically doing much better today. She had some chest pain yesterday, but the pain has resolved. She is feeling comfortable. Denies any chest discomfort. Vitals are stable. Troponin levels are unremarkable. She is asymptomatic. The quality of her pain also seems quite atypical. Blood pressure today is 130/70, pulse rate is 70 per minute. HEENT: Unremarkable. Fundus was not examined by me. Neck is supple. There is no JVD. There is a short systolic murmur. Lungs are clear. Abdomen and lower extremity exam unchanged. Pain is atypical. Troponins are normal. She can be followed up as an outpatient. I will see her as needed from a cardiac standpoint. MMODL / IJN: [id number] /
[2018-10-08] MEDS ORDERED: ONDANSETRON 4 MG/2 ML VIAL IVP PRN (19:17)
[2018-10-08] MEDS: DIPHENOX-ATROP 2.5-0.025 MG 1 EACH TAB PO PRN (22:22)
[2018-10-08] MEDS: ATORVASTATIN 10 MG TAB PO SCH (22:22)
[2018-10-08] MEDS: MONTELUKAST 10 MG TAB PO SCH (22:22)
[2018-10-08] MEDS: methylPREDNISolone SOD SUCCI 40 MG/ML 1 ML VIAL IV SCH (22:28)
[2018-10-09 07:39] LABS: Basophils % (A) 0 %; Eosinophils # (A) 0.1 k/uL (0-0.7); Eosinophils % (A) 1 %; HCT 38.1 % (34.0-46.0); HGB 11.9 gm/dL (11.4-16.0); Lymphocytes # (A) 0.9 k/uL (1.0-4.8); Lymphocytes % (A) 9 %; MCH 31.3 pg (25.0-35.0); MCHC 31.2 g/dL (31.0-37.0); MCV 100.6 fL (80.0-100.0); Mean Platelet Volume 8.4; Monocytes # (A) 0.4 k/uL (0-1.0); Monocytes % (A) 4 %; Neutrophils # (A) 8.7 k/uL (1.3-7.7); Neutrophils % (A) 86 %; Platelet Count 258 k/uL (150-450); RBC 3.78 m/uL (3.80-5.40); RDW 12.4 % (11.5-15.5); WBC 10.2 k/uL (3.8-10.6)
[2018-10-09] MEDS: DULoxetine HCL 60 MG CAPSULE.DR PO SCH ×2 (07:53→21:27)
[2018-10-09] MEDS: MORPHINE SULFATE ER 15 MG TABLET PO SCH ×2 (07:53→21:11)
[2018-10-09] MEDS: ALPRAZolam 0.25 MG TAB PO SCH ×4 (07:53→21:11)
[2018-10-09] MEDS: IPRATROPIUM-ALBUTEROL 3 ML NEB INHALATION SCH ×4 (07:54→19:40)
[2018-10-09] MEDS: methylPREDNISolone SOD SUCCI 40 MG/ML 1 ML VIAL IV SCH ×2 (07:54→21:12)
[2018-10-09] MEDS: PREGABALIN 75 MG CAP PO SCH ×2 (07:55→21:11)
[2018-10-09] MEDS: DIVALPROEX 500 MG TABLET.DR PO SCH ×3 (07:55→21:27)
[2018-10-09] MEDS: RIVAROXABAN 20 MG TAB PO SCH (07:55)
[2018-10-09] MEDS: FAMOTIDINE 20 MG TAB PO SCH (07:55)
[2018-10-09 07:56] LABS: ALT 31 U/L (9-52); AST 12 U/L (14-36); Albumin 3.7 g/dL (3.5-5.0); Alkaline Phosphatase 57 U/L (38-126); Anion Gap 3 mmol/L; Blood Urea Nitrogen 23 mg/dL (7-17); Calcium 9.6 mg/dL (8.4-10.2); Carbon Dioxide 39 mmol/L (22-30); Chloride 97 mmol/L (98-107); Glucose 155 mg/dL (74-99); Potassium 5.6 mmol/L (3.5-5.1); Sodium 139 mmol/L (137-145); Total Bilirubin 0.3 mg/dL (0.2-1.3); Total Protein 6.6 g/dL (6.3-8.2)
[2018-10-09] MEDS: AZITHROMYCIN 500 MG TAB PO SCH (07:56)
[2018-10-09] MEDS: VITAMIN A 8,000 UNITS PO SCH (07:57)
[2018-10-09] MEDS ORDERED: SODIUM POLYSTYRENE SULFONATE 15 GM/60 ML BOTTLE PO STA (15:39)
--- NOTE | 2018-10-09 15:57 | P.PN ---
Subjective Progress Note Date: 10/09/18 This is a 57-year-old female, patient of Dr. Olea. She has a known past medical history of COPD, obstructive sleep apnea and has been without a CPAP or BiPAP for over a year due to insurance reasons, history of PE 2 last one was 2 years ago, seizures disorder, depression and fibromyalgia. Patient reports to the ER with complaints of worsening shortness of breath and chest heaviness. Patient's has had symptoms for about 4 days with no improvement. She states she usually takes 3 L of oxygen at home and has bumped up to 4. She was having no improvement with her nebulizer treatments. Chest x-ray was negative. D-dimer was negative. CT of the chest completed in ER. Troponin is negative and EKG normal sinus rhythm. Patient is on Xarelto for her PE she's been taking the medication as prescribed. Patient denies any fever, chills, sweats, nausea or vomiting, bowel movement changes or urinary symptoms. She denies any cardiac history. patient reports that her symptoms feel like her COPD. Patient was started on IV steroids and Zithromax and nebulizer treatments in ER. Pulmonary service has been consulted. 10/07/2018 patient reporting improvement in her shortness of breath and chest heaviness. She still has some shortness of breath when she walks to the bathroom. Requiring 4 L of oxygen. She is usually on 3 L of oxygen at home. She is satting at 98%. Patient denies any nausea vomiting. Denies any bowel movement changes or urinary symptoms. On 10/08/2018 patient was seen and examined on the medical floor she is alert and oriented 3 in no apparent distress there is no fever or chills no headache or dizziness shortness of breath is improving there is no chest pain she is still complaining of cough there is no nausea or vomiting no abdominal pain no diarrhea and no urinary symptoms. On 10/09/2018 patient was seen and examined on the medical floor, she stated that she is improving there is no fever or chills no headache or dizziness shortness of breath is improving there is no chest pain she is still complaining of cough there is no nausea or vomiting no abdominal pain no diarrhea and no urinary symptoms. Potassium is elevated patient will be given a dose of Kayexalate Objective - Vital Signs Vital signs: Vital Signs Temp 98.1 F 10/09/18 11:49 Pulse 84 10/09/18 15:48 Resp 16 10/09/18 11:49 BP 160/90 10/09/18 11:49 Pulse Ox 99 10/09/18 15:43 Intake & Output 10/08/18 10/09/18 10/09/18 18:59 06:59 18:59 Intake Total 890 120 Balance 890 120 Intake: Oral 890 120 Other: # Voids 2 2 3 - Exam Head normocephalic and atraumatic Neck supple no JVD no goiter Lungs diminished bilaterally no wheezing or crackles Heart regular rate and rhythm S1-S2, no rub or gallop Abdomen is soft nontender nondistended positive bowel sounds no hepatosplenomegaly Extremities no edema no cyanosis or clubbing Neuro alert and orientated to 3 - Labs CBC & Chem 7: 10/09/18 07:02 10/09/18 07:02 Labs: Abnormal Lab Results - Last 24 Hours (Table) 10/09/18 10/09/18 Range/Units 07:02 07:02 RBC 3.78 L (3.80-5.40) m/uL MCV 100.6 H (80.0-100.0) fL Neutrophils # 8.7 H (1.3-7.7) k/uL Lymphocytes # 0.9 L (1.0-4.8) k/uL Potassium 5.6 H (3.5-5.1) mmol/L Chloride 97 L (98-107) mmol/L Carbon Dioxide 39 H (22-30) mmol/L BUN 23 H (7-17) mg/dL Creatinine 0.48 L (0.52-1.04) mg/dL Glucose 155 H (74-99) mg/dL AST 12 L (14-36) U/L Microbiology - Last 24 Hours (Table) 10/06/18 13:57 Blood Culture - Preliminary Blood No Growth after 48 hours Assessment and Plan Plan: 1. Acute COPD exacerbation: Continue IV SoluMedrol and bronchodilators. Pulmonary following 2. Acute tracheobronchitis: Continue azithromycin and will add Rocephin. Consult infectious disease. No pneumonia on chest x-ray 3. Shortness of breath with chest pain possibly related to her COPD exacerbation. D-dimer negative. CTA of chest reviewed no evidence of a large central or saddle embolus. Troponin negative. EKG normal sinus rhythm 4. Hypomagnesemia : Resolved Repeat magnesium 2.1 5. Obstructive sleep apnea patient has not been using Cpap she is having issues with insurance. We'll consult lead case manager 6. Morbid obesity 7. History of pulmonary embolism 2 on Xarelto. Last PE roughly 2 years ago 8. History of seizure disorder continue seizure medications 9. Depression 10. fibromyalgia 11. Hyperkalemia given a dose of Kayexalate today GI prophylaxis Pepcid and DVT prophylaxis Xarelto
[2018-10-09] MEDS: MONTELUKAST 10 MG TAB PO SCH (21:11)
[2018-10-09] MEDS: ATORVASTATIN 10 MG TAB PO SCH (21:11)
[2018-10-09] MEDS: DIPHENOX-ATROP 2.5-0.025 MG 1 EACH TAB PO PRN (21:12)
--- NOTE | 2018-10-09 22:07 | P.PN ---
Subjective Progress Note Date: 10/09/18 Principal diagnosis: Acute COPD exacerbation, tracheobronchitis, severe degree of sleep disorder breathing and sleep apnea, morbid obesity, history of prior recurrent pulmonary embolism on lifelong anticoagulation with oral anticoagulants 10/09/2018, patient seen eval reexamined during the rounds clinically patient is doing well cuff congestion shortness breath has improved as noted previously care plan discussed with the patient at length agree with discharge planning for tomorrow patient has been arranged for the height new BiPAP machine awaiting approval from the insurance, from respiratory standpoint cough congestion shortness of breath has improved as well agree with discharge planning on oral tapering steroids and antibiotics with continuation of bronchodilators at home 10/08/2018, patient seen eval examined during the rounds clinically has been doing well awake and alert care plan discussed with the case investigator at length patient had issues associated with BiPAP ST mode will have been changed to BiPAP as more data prescriptions have been written office notes and other data has been also forwarded from the office as well hopefully patient should be able to get the BiPAP machine now on outpatient setting, will continue current plan of care for now further 24-48 hours patient is currently not ready for discharge 10/07/2018, patient seen eval examined during the rounds clinically has been doing better in terms of breathing was still of ongoing cough congestion shortness of breath severity is slightly better patient is being treated with steroids breathing treatments and antibiotics tolerating well 62-year-old female with ongoing history of fall smoking quit about 3 years ago she has smoked one to 2 packs per day for about 40 years, patient has been under too much stress related to her mother's illness lately she has been staying with her mother while at work patient developed severe chest tightness and pain was brought into emergency department for further evaluation given the presentation acute onset of chest pain high index of suspicion is for acute CT considering patient underwent emergent cardiac cath and angiogram, no significant coronary artery disease however is noted I was asked to evaluate further given ongoing history of loose wheezing cough and congestion Objective - Vital Signs Vital signs: Vital Signs Temp 98.5 F 10/09/18 21:00 Pulse 85 10/09/18 21:00 Resp 18 10/09/18 21:00 BP 160/75 10/09/18 21:00 Pulse Ox 95 10/09/18 21:00 Intake & Output 10/09/18 10/09/18 10/10/18 06:59 18:59 06:59 Intake Total 890 120 Balance 890 120 Intake: Oral 890 120 Other: # Voids 2 3 - Exam - Constitutional General appearance: cooperative, disheveled, morbidly obese - EENT Eyes: EOMI, PERRLA, poor dentition, normal appearance Ears: bilateral: normal - Neck Neck: normal ROM Carotids: bilateral: upstroke normal Thyroid: bilateral: normal size - Respiratory Respiratory: bilateral: diminished, wheezing (Fine on force expiration), negative: dullness, rales, rhonchi, prolonged expiration, prolonged inspiration, other - Cardiovascular Rhythm: regular Heart sounds: normal: S1, S2 - Gastrointestinal General gastrointestinal: normal bowel sounds, soft - Integumentary Integumentary: normal - Neurologic Neurologic: CNII-XII intact - Musculoskeletal Musculoskeletal: gait normal, generalized weakness, strength equal bilaterally - Psychiatric Psychiatric: A&O x's 3, appropriate affect, intact judgment & insight - Labs CBC & Chem 7: 10/09/18 07:02 10/09/18 07:02 Labs: Abnormal Lab Results - Last 24 Hours (Table) 10/09/18 10/09/18 Range/Units 07:02 07:02 RBC 3.78 L (3.80-5.40) m/uL MCV 100.6 H (80.0-100.0) fL Neutrophils # 8.7 H (1.3-7.7) k/uL Lymphocytes # 0.9 L (1.0-4.8) k/uL Potassium 5.6 H (3.5-5.1) mmol/L Chloride 97 L (98-107) mmol/L Carbon Dioxide 39 H (22-30) mmol/L BUN 23 H (7-17) mg/dL Creatinine 0.48 L (0.52-1.04) mg/dL Glucose 155 H (74-99) mg/dL AST 12 L (14-36) U/L Microbiology - Last 24 Hours (Table) 10/06/18 13:57 Blood Culture - Preliminary Blood No Growth after 72 hours Assessment and Plan Assessment: Acute COPD exacerbation Tracheobronchitis Sleep disorder breathing and sleep apnea Severe morbid obesity History of prior recurrent pulmonary embolism patient has been on long-term anticoagulation History of seizure disorder Mood disorder depression Plan: Agree with broad-spectrum antibiotics breathing treatments and antibiotics Further evaluation outpatient setting for sleep disorder breathing and sleep apnea Agree with the case investigator evaluation for arrangement of CPAP if possible Follow clinical course closely further recommendations pending Time with Patient: Greater than 30
--- NOTE | 2018-10-09 22:30 | PN ---
PROGRESS NOTE DATE OF SERVICE: 10/09/2018. REASON FOR FOLLOWUP: Tracheobronchitis. INTERVAL HISTORY: The patient is afebrile. She is breathing comfortably. The chest pain is improved, very minimal cough. No vomiting. No abdominal pain. No diarrhea. PHYSICAL EXAMINATION: Blood pressure is 160/90 with a pulse of 80, temperature 98.1. She is 100% on room air. General description is a middle-aged female lying in bed in no distress. Respiratory system: Unlabored breathing with decreased breath sounds at the bases. No wheeze. Heart S1, S2. Regular rate and rhythm. Abdomen soft, no tenderness. LABS: Hemoglobin is 11.1, white count of 10.2 with a BUN of 23, creatinine 0.48. Blood culture has been negative so far. DIAGNOSTIC IMPRESSION AND PLAN: Patient admitted to the hospital with chest pain in this patient who did have some shortness of breath with concern for COPD exacerbation with tracheobronchitis. Patient is currently covered with Zithromax, steroids and bronchodilator, to continue for now. Monitor her clinical course closely. Continue supportive care. MMODL / IJN: [id number] /
[2018-10-10] MEDS: IPRATROPIUM-ALBUTEROL 3 ML NEB INHALATION SCH ×4 (06:50→19:39)
[2018-10-10 07:58] LABS: Basophils % (A) 0 %; Eosinophils # (A) 0.1 k/uL (0-0.7); Eosinophils % (A) 1 %; HCT 38.1 % (34.0-46.0); Lymphocytes # (A) 1.2 k/uL (1.0-4.8); Lymphocytes % (A) 13 %; MCH 32.2 pg (25.0-35.0); MCHC 31.5 g/dL (31.0-37.0); MCV 102.2 fL (80.0-100.0); Macrocytosis Slight; Mean Platelet Volume 7.6; Monocytes # (A) 0.5 k/uL (0-1.0); Monocytes % (A) 6 %; Neutrophils # (A) 7.3 k/uL (1.3-7.7); Neutrophils % (A) 79 %; Platelet Count 239 k/uL (150-450); RBC 3.73 m/uL (3.80-5.40); RDW 12.4 % (11.5-15.5); WBC 9.2 k/uL (3.8-10.6)
[2018-10-10 08:41] LABS: ALT 30 U/L (9-52); AST 13 U/L (14-36); Albumin 3.7 g/dL (3.5-5.0); Alkaline Phosphatase 57 U/L (38-126); Anion Gap 4 mmol/L; Blood Urea Nitrogen 19 mg/dL (7-17); Calcium 9.6 mg/dL (8.4-10.2); Carbon Dioxide 40 mmol/L (22-30); Chloride 96 mmol/L (98-107); Glucose 135 mg/dL (74-99); Potassium 5.2 mmol/L (3.5-5.1); Sodium 140 mmol/L (137-145); Total Bilirubin 0.4 mg/dL (0.2-1.3); Total Protein 6.3 g/dL (6.3-8.2)
[2018-10-10] MEDS: DIVALPROEX 500 MG TABLET.DR PO SCH ×3 (08:59→21:55)
[2018-10-10] MEDS: AZITHROMYCIN 500 MG TAB PO SCH (08:59)
[2018-10-10] MEDS: FAMOTIDINE 20 MG TAB PO SCH (08:59)
[2018-10-10] MEDS: RIVAROXABAN 20 MG TAB PO SCH (08:59)
[2018-10-10] MEDS: DULoxetine HCL 60 MG CAPSULE.DR PO SCH ×2 (08:59→21:55)
[2018-10-10] MEDS: ALPRAZolam 0.25 MG TAB PO SCH ×4 (08:59→21:55)
[2018-10-10] MEDS: MORPHINE SULFATE ER 15 MG TABLET PO SCH ×2 (09:00→21:55)
[2018-10-10] MEDS: PREGABALIN 75 MG CAP PO SCH ×2 (09:00→21:55)
[2018-10-10] MEDS: methylPREDNISolone SOD SUCCI 40 MG/ML 1 ML VIAL IV SCH ×2 (09:01→21:56)
[2018-10-10] MEDS: VITAMIN A 8,000 UNITS PO SCH (09:03)
[2018-10-10] MEDS ORDERED: SODIUM POLYSTYRENE SULFONATE 15 GM/60 ML BOTTLE PO STA (10:24)
--- NOTE | 2018-10-10 15:47 | P.PN ---
Subjective Progress Note Date: 10/10/18 This is a 57-year-old female, patient of Dr. Olea. She has a known past medical history of COPD, obstructive sleep apnea and has been without a CPAP or BiPAP for over a year due to insurance reasons, history of PE 2 last one was 2 years ago, seizures disorder, depression and fibromyalgia. Patient reports to the ER with complaints of worsening shortness of breath and chest heaviness. Patient's has had symptoms for about 4 days with no improvement. She states she usually takes 3 L of oxygen at home and has bumped up to 4. She was having no improvement with her nebulizer treatments. Chest x-ray was negative. D-dimer was negative. CT of the chest completed in ER. Troponin is negative and EKG normal sinus rhythm. Patient is on Xarelto for her PE she's been taking the medication as prescribed. Patient denies any fever, chills, sweats, nausea or vomiting, bowel movement changes or urinary symptoms. She denies any cardiac history. patient reports that her symptoms feel like her COPD. Patient was started on IV steroids and Zithromax and nebulizer treatments in ER. Pulmonary service has been consulted. 10/07/2018 patient reporting improvement in her shortness of breath and chest h eaviness. She still has some shortness of breath when she walks to the bathroom. Requiring 4 L of oxygen. She is usually on 3 L of oxygen at home. She is satting at 98%. Patient denies any nausea vomiting. Denies any bowel movement changes or urinary symptoms. On 10/08/2018 patient was seen and examined on the medical floor she is alert and oriented 3 in no apparent distress there is no fever or chills no headache or dizziness shortness of breath is improving there is no chest pain she is still complaining of cough there is no nausea or vomiting no abdominal pain no diarrhea and no urinary symptoms. On 10/09/2018 patient was seen and examined on the medical floor, she stated that she is improving there is no fever or chills no headache or dizziness shortness of breath is improving there is no chest pain she is still complaining of cough there is no nausea or vomiting no abdominal pain no diarrhea and no urinary symptoms. Potassium is elevated patient will be given a dose of K ayexalate 10/10/2018 patient denies any chest pain report reports that her shortness of breath is improving. Denies any cough. Denies any nausea or vomiting. Reports having bowel movements. Denies any difficulty urinating. Initially her planning to discharge home today. However, her CO2 is trending upwards to 40. We'll repeat labs in a.m. and monitor. Pulmonary following. Potassium 5.2 p atient received Kayexalate. Objective - Vital Signs Vital signs: Vital Signs Temp 98.1 F 10/10/18 12:08 Pulse 88 10/10/18 15:12 Resp 16 10/10/18 12:08 BP 166/87 10/10/18 12:08 Pulse Ox 98 10/10/18 12:08 Intake & Output 10/09/18 10/10/18 10/10/18 18:59 06:59 18:59 Intake Total 120 550 600 Balance 120 550 600 Intake: Oral 120 550 600 Other: Voiding Method Toilet Toilet Diaper Diaper Incontinent Incontinent # Voids 3 1 2 # Bowel Movements 1 - Exam Head normocephalic Neck supple Lungs improvement in air movement. No wheezing or crackles noted Heart regular rate and rhythm S1-S2, no rub or gallop Abdomen is soft nontender nondistended positive bowel sounds no hepatosplenomegaly Extremities no edema Neuro alert and orientated to 3 - Labs CBC & Chem 7: 10/10/18 07:11 10/10/18 07:11 Labs: Abnormal Lab Results - Last 24 Hours (Table) 10/10/18 10/10/18 Range/Units 07:11 07:11 RBC 3.73 L (3.80-5.40) m/uL MCV 102.2 H (80.0-100.0) fL Potassium 5.2 H (3.5-5.1) mmol/L Chloride 96 L (98-107) mmol/L Carbon Dioxide 40 H (22-30) mmol/L BUN 19 H (7-17) mg/dL Creatinine 0.48 L (0.52-1.04) mg/dL Glucose 135 H (74-99) mg/dL AST 13 L (14-36) U/L Microbiology - Last 24 Hours (Table) 10/06/18 13:57 Blood Culture - Preliminary Blood No Growth after 72 hours Assessment and Plan Assessment: 1. Acute COPD exacerbation: Continue IV Solu-Medrol and bronchodilators. Pulmonary following 2. Acute tracheobronchitis: Continue azithromycin. No pneumonia on chest x-ray 3. Shortness of breath with chest pain possibly related to her COPD exacerbation. D-dimer negative. CTA of chest reviewed no evidence of a large central or saddle embolus. Troponins negative. EKG normal sinus rhythm 4. Hypomagnesemia : Resolved Repeat magnesium 2.1 5. Obstructive sleep apnea patient has not been using Cpap she is having issues with insurance. We'll consult senior case manager 6. Morbid obesity 7. History of pulmonary embolism 2 on Xarelto. Last PE roughly 2 years ago 8. History of seizure disorder continue seizure medications 9. Depression 10. fibromyalgia 11. Hyperkalemia: Patient received Kayexalate. Repeat potassium level in a.m. 12. Elevated CO2 of 40. We'll repeat labs in a.m. Pulmonary to follow GI prophylaxis Pepcid and DVT prophylaxis Xarelto Anticipate discharge hopefully tomorrow I performed an examination of the patient and discussed their management with the physician Newspaper Inserter. I have reviewed the Physician Newspaper Inserter's notes and agree with the documented findings and plan of care
--- NOTE | 2018-10-10 16:52 | PN ---
PROGRESS NOTE DATE OF SERVICE: 10/10/2018 REASON FOR FOLLOWUP VISIT: Tracheobronchitis. INTERVAL HISTORY: The patient is currently afebrile. The patient has been breathing comfortably. Denies having any chest pain. Occasional cough. No nausea, no vomiting. No abdominal pain or diarrhea. PHYSICAL EXAMINATION: Blood pressure 166/87 with a pulse of 59, temperature 98.1. She is 98% on 3 L nasal cannula. General description is a middle-aged female up in the bed in no distress. Respiratory system: Unlabored breathing clear to auscultation anteriorly. Heart: S1, S2. Regular rate and rhythm. Abdomen soft, no tenderness. LABS: Hemoglobin is 12, white count 9.2, BUN of 19, creatinine 0.4. DIAGNOSTIC IMPRESSION AND PLAN: Patient with chronic obstructive pulmonary disease exacerbation with tracheobronchitis. No evidence of any pneumonia. Cardiac etiology ruled out as well and CT angio was negative for PE. We will continue short course of oral Zithromax along with bronchodilator and steroids per Pulmonary and close outpatient followup. Continue supportive care. MMODL / IJN: [id number] /
[2018-10-10] MEDS: MONTELUKAST 10 MG TAB PO SCH (21:55)
[2018-10-10] MEDS: ATORVASTATIN 10 MG TAB PO SCH (21:55)
[2018-10-11] MEDS: IPRATROPIUM-ALBUTEROL 3 ML NEB INHALATION SCH ×2 (07:54→11:09)
[2018-10-11] MEDS: AZITHROMYCIN 500 MG TAB PO SCH (08:08)
[2018-10-11] MEDS: RIVAROXABAN 20 MG TAB PO SCH (08:08)
[2018-10-11] MEDS: ALPRAZolam 0.25 MG TAB PO SCH ×2 (08:08→11:22)
[2018-10-11] MEDS: FAMOTIDINE 20 MG TAB PO SCH (08:08)
[2018-10-11] MEDS: DULoxetine HCL 60 MG CAPSULE.DR PO SCH (08:08)
[2018-10-11] MEDS: DIVALPROEX 500 MG TABLET.DR PO SCH (08:08)
[2018-10-11] MEDS: MORPHINE SULFATE ER 15 MG TABLET PO SCH (08:08)
[2018-10-11] MEDS: PREGABALIN 75 MG CAP PO SCH (08:09)
[2018-10-11] MEDS: methylPREDNISolone SOD SUCCI 40 MG/ML 1 ML VIAL IV SCH (08:09)
[2018-10-11] MEDS: VITAMIN A 8,000 UNITS PO SCH (08:12)
[2018-10-11 09:23] LABS: Blood Urea Nitrogen 19 mg/dL (7-17); Calcium 9.9 mg/dL (8.4-10.2); Chloride 90 mmol/L (98-107); Glucose 161 mg/dL (74-99); Potassium 4.5 mmol/L (3.5-5.1); Sodium 139 mmol/L (137-145)
[2018-10-11 09:35] LABS: Anion Gap 10 mmol/L; Carbon Dioxide 39 mmol/L (22-30)
--- NOTE | 2018-10-11 11:01 | P.PN ---
Subjective Progress Note Date: 10/11/18 10/11/2017: Patient seen and examined covering for Dr. Steiner. The patient states that she is feeling good and feels ready to go home. She states she will follow up outpatient for a sleep study. She denies fevers and chills. She denies shortness of breath. She states she does have oxygen at home. Objective - Vital Signs Vital signs: Vital Signs Temp 98.1 F 10/11/18 05:00 Pulse 84 10/11/18 08:07 Resp 18 10/11/18 05:00 BP 137/72 10/11/18 05:00 Pulse Ox 98 10/11/18 07:57 Intake & Output 10/10/18 10/11/18 10/11/18 18:59 06:59 18:59 Intake Total 600 70 Balance 600 70 Weight 104.326 kg Intake: IV 70 0.9 70 Oral 600 Other: Voiding Method Toilet Toilet Toilet Diaper Diaper Diaper Incontinent Incontinent Incontinent # Voids 2 2 - Exam Gen.: Patient is alert and oriented 3, no acute distress, morbidly obese Cardiovascular: Regular rate and rhythm, S1/S2 Lungs: Diminished breath sounds bilaterally otherwise clear Abdomen: Soft nontender nondistended positive bowel sounds Extremities: No edema - Labs CBC & Chem 7: 10/10/18 07:11 10/11/18 08:23 Labs: Abnormal Lab Results - Last 24 Hours (Table) 10/11/18 Range/Units 08:23 Chloride 90 L (98-107) mmol/L Carbon Dioxide 39 H (22-30) mmol/L BUN 19 H (7-17) mg/dL Creatinine 0.48 L (0.52-1.04) mg/dL Glucose 161 H (74-99) mg/dL Microbiology - Last 24 Hours (Table) 10/06/18 13:57 Blood Culture - Preliminary Blood No Growth after 96 hours Assessment and Plan Assessment: Acute COPD exacerbation Tracheobronchitis Sleep disorder breathing and sleep apnea Severe morbid obesity History of prior recurrent pulmonary embolism patient has been on long-term anticoagulation History of seizure disorder Mood disorder depression Plan: Agree with broad-spectrum antibiotics breathing treatments and antibiotics Further evaluation outpatient setting for sleep disorder breathing and sleep apnea One dose of Diamox now Ok to DC from pulmonary standpoint with close follow up in the next few days
[2018-10-11 12:10] VITALS: BP 186/77; PULSE 80; RESP 17; TEMP 97.6
--- NOTE | 2018-10-11 13:14 | P.DS ---
Providers Date of admission: 10/10/18 09:20 Expected date of discharge: 10/11/18 Attending physician: Gama Weaver Consults: 10/06/18 16:25 Consult Physician Routine Consulting Provider: Daniel Steiner Consult Reason/Comments: COPD exacerbation Do you want consulting provider notified?: Yes Consult Physician Routine Consulting Provider: Noa Olea Consult Reason/Comments: bronchitis Do you want consulting provider notified?: Yes 10/07/18 12:52 Consult Physician Routine Consulting Provider: Corrina Mckeon Consult Reason/Comments: chest pain Do you want consulting provider notified?: Yes Primary care physician: Noa Olea Hospital Course: Discharge diagnosis 1. Acute COPD exacerbation: Continue prednisone taper and nebulizer treatments 2. Acute tracheobronchitis: Continue azithromycin for 3 more days. No pneumonia on chest x-ray 3. Shortness of breath with chest pain possibly related to her COPD exacerbation. D-dimer negative. CTA of chest reviewed no evidence of a large central or saddle embolus. Troponins negative. EKG normal sinus rhythm 4. Hypomagnesemia : Resolved Repeat magnesium 2.1 5. Obstructive sleep apnea patient has not been using Cpap she is having issues with insurance. 6. Morbid obesity 7. History of pulmonary embolism 2 on Xarelto. Last PE roughly 2 years ago 8. History of seizure disorder continue seizure medications 9. Depression 10. fibromyalgia 11. Hyperkalemia: Resolved after Kayexalate 12. Elevated CO2 of 40. patient seen evaluated by pulmonary service they've ordered 1 dose of Diamox. CO2 today is 39. Patient will follow-up with pulmonary service outpatient in the next few days Hospital course This is a 57-year-old female, patient of Dr. Olea. She has a known past medical history of COPD, obstructive sleep apnea and has been without a CPAP or BiPAP for over a year due to insurance reasons, history of PE 2 last one was 2 years ago, seizures disorder, depression and fibromyalgia. Patient reports to the ER with complaints of worsening shortness of breath and chest heaviness. Patient's has had symptoms for about 4 days with no improvement. She states she usually takes 3 L of oxygen at home and has bumped up to 4. She was having no improvement with her nebulizer treatments. Chest x-ray was negative. D-dimer was negative. CT of the chest completed in ER. Troponin is negative and EKG normal sinus rhythm. Patient is on Xarelto for her PE she's been taking the medication as prescribed. Patient denies any fever, chills, sweats, nausea or vomiting, bowel movement changes or urinary symptoms. She denies any cardiac history. patient reports that her symptoms feel like her COPD. Patient was started on IV steroids and Zithromax and nebulizer treatments in ER. Pulmonary service has been consulted. 10/07/2018 patient reporting improvement in her shortness of breath and chest heaviness. She still has some shortness of breath when she walks to the bathroom. Requiring 4 L of oxygen. She is usually on 3 L of oxygen at home. She is satting at 98%. Patient denies any nausea vomiting. Denies any bowel movement changes or urinary symptoms. On 10/08/2018 patient was seen and examined on the medical floor she is alert and oriented 3 in no apparent distress there is no fever or chills no headache or dizziness shortness of breath is improving there is no chest pain she is still complaining of cough there is no nausea or vomiting no abdominal pain no diarrhea and no urinary symptoms. On 10/09/2018 patient was seen and examined on the medical floor, she stated that she is improving there is no fever or chills no headache or dizziness shortness of breath is improving there is no chest pain she is still complaining of cough there is no nausea or vomiting no abdominal pain no diarrhea and no urinary symptoms. Potassium is elevated patient will be given a dose of Kayexalate 10/10/2018 patient denies any chest pain report reports that her shortness of breath is improving. Denies any cough. Denies any nausea or vomiting. Reports having bowel movements. Denies any difficulty urinating. Initially her planning to discharge home today. However, her CO2 is trending upwards to 40. We'll repeat labs in a.m. and monitor. Pulmonary following. Potassium 5.2 patient received Kayexalate. 10/11/2018 patient is medically stable for discharge. She's been cleared by pulmonary and infectious disease. Patient treated for an acute COPD and bronchitis. She'll continue prednisone taper and antibiotics. Patient needs to follow-up with pulmonary service outpatient for further workup on her strict of sleep apnea. She does need to have a repeat sleep study in order to get a CPAP machine. Patient was given 1 dose of Diamox today for her elevated CO2. Pulmonary has cleared her for discharge and recommend follow-up in the office within the next 3 days. Please refer to chart for further details patient is medical stable for discharge. I performed an examination of the patient and discussed their management with the physician Jewelry Model Maker. I have reviewed the Physician Jewelry Model Maker's notes and agree with the documented findings and plan of care Patient Condition at Discharge: Stable Plan - Discharge Summary New Discharge Prescriptions: New predniSONE 10 mg PO DIRECTED #18 tab Azithromycin [Zithromax] 500 mg PO DAILY #3 tab Continue Albuterol Sulfate [Proair Hfa] 2 puff INHALATION RT-QID PRN PRN Reason: Shortness Of Breath DULoxetine HCL [Cymbalta] 60 mg PO BID capsule. Pregabalin [Lyrica] 75 mg PO BID cap Divalproex [Depakote] 500 mg PO TID #90 tablet. levETIRAcetam [Keppra] 750 mg PO Q12HR #60 tab Morphine Sulfate ER [Ms Contin] 15 mg PO Q12HR Diphenoxylate HCl/Atropine [Lomotil 2.5-0.025 mg Tablet] 2 tab PO BID PRN PRN Reason: Diarrhea Montelukast Sodium [Singulair] 10 mg PO HS Ipratropium-Albuterol Nebulize [Duoneb 0.5 mg-3 mg/3 ml Soln] 3 ml INHALATION RT-BID Vitamin A 8,000 unit PO DAILY Ensure 1 can PO QID Simvastatin [Zocor] 20 mg PO HS ALPRAZolam [Xanax] 0.25 mg PO QID Rivaroxaban [Xarelto] 20 mg PO DAILY Discharge Medication List Albuterol Sulfate [Proair Hfa] 2 puff INHALATION RT-QID PRN 10/07/15 [History] DULoxetine HCL [Cymbalta] 60 mg PO BID capsule. 10/12/15 [Rx] Pregabalin [Lyrica] 75 mg PO BID cap 10/12/15 [Rx] Divalproex [Depakote] 500 mg PO TID #90 tablet. 10/15/15 [Rx] levETIRAcetam [Keppra] 750 mg PO Q12HR #60 tab 10/15/15 [Rx] Morphine Sulfate ER [Ms Contin] 15 mg PO Q12HR 09/22/17 [History] ALPRAZolam [Xanax] 0.25 mg PO QID 10/06/18 [History] Diphenoxylate HCl/Atropine [Lomotil 2.5-0.025 mg Tablet] 2 tab PO BID PRN 10/06/18 [History] Ensure 1 can PO QID 10/06/18 [History] Ipratropium-Albuterol Nebulize [Duoneb 0.5 mg-3 mg/3 ml Soln] 3 ml INHALATION RT-BID 10/06/18 [History] Montelukast Sodium [Singulair] 10 mg PO HS 10/06/18 [History] Rivaroxaban [Xarelto] 20 mg PO DAILY 10/06/18 [History] Simvastatin [Zocor] 20 mg PO HS 10/06/18 [History] Vitamin A 8,000 unit PO DAILY 10/06/18 [History] Azithromycin [Zithromax] 500 mg PO DAILY #3 tab 10/10/18 [Rx] predniSONE 10 mg PO DIRECTED #18 tab 10/10/18 [Rx] Follow up Appointment(s)/Referral(s): Daniel Steiner MD [Family Provider] - 1 Week Noa Olea MD [Primary Care Provider] - 10/17/18 11:30 am Ambulatory/Diagnostic Orders: Basic Metabolic Panel [LAB.AMB] Time Frame: 3 Days, Location: None Selected Patient Instructions/Handouts: Prednisone (By mouth), Azithromycin (By mouth), Chest Pain (DC), Potassium Content of Foods List (DC), COPD (Chronic Obstructive Pulmonary Disease) (DC), Dyspnea (DC), Altered Mental Status (ED) Activity/Diet/Wound Care/Special Instructions: [facility] Diet: Regular Activity: as tolerated If patient is unable to be seen by Dr. Steiner in office then she can follow -up with Dr. Rich in 3 days Discharge Disposition: HOME WITH HOME HEALTH SERVICES
--- NOTE | 2018-10-11 14:56 | PN ---
PROGRESS NOTE DATE OF SERVICE: 10/11/2018. REASON FOR FOLLOWUP: 1. Acute tracheobronchitis. 2. Oral thrush. INTERVAL HISTORY: The patient is currently afebrile. Patient breathing comfortably. Denies having any chest pain, cough, no abdominal pain. No diarrhea. PHYSICAL EXAMINATION: Blood pressure is 162/77 with a pulse of 80, temperature 97.6, she is 99% on 2 L nasal cannula. General description is a middle-aged female, lying in bed in no distress. RESPIRATORY SYSTEM: Unlabored breathing, clear to auscultation anteriorly: HEART: S1, S2, regular rate and rhythm. ABDOMEN: Soft, no tenderness. The patient did not have any oral thrush on oral examination. LABS: BUN of 19, creatinine 0.4. DIAGNOSTIC IMPRESSION/PLAN: 1. Patient with acute tracheobronchitis. Plan is to with continue therapy with the steroids and bronchodilator, status post . 2. Patient with oral thrush. Nystatin Swish and Swallow four times a day for about a week. Prescription was sent to the Pharmacy. Continue supportive care. MMODL / IJN: [id number] /
== END 2018-10-11 14:10 | disposition home health service (06) | DRG 191 ==
LOC: EC 13:16 → 3NMEDONC 15:18 → OBSVTOIN 10-10 09:20
PROVIDERS: ADMIT Internal Medicine; ATTEND Internal Medicine
DX: J44.1 Chronic obstructive pulmonary disease with (acute) exacerbation (principal); B37.0 Candidal stomatitis; Z68.41 Body mass index [BMI] 40.0-44.9, adult; E83.42 Hypomagnesemia; E66.01 Morbid (severe) obesity due to excess calories; E87.5 Hyperkalemia; G47.33 Obstructive sleep apnea (adult) (pediatric); M79.7 Fibromyalgia; F32.9 Major depressive disorder, single episode, unspecified; M19.90 Unspecified osteoarthritis, unspecified site; F41.0 Panic disorder [episodic paroxysmal anxiety]; G40.909 Epilepsy, unspecified, not intractable, without status epilepticus; E78.5 Hyperlipidemia, unspecified; J20.9 Acute bronchitis, unspecified; J44.0 Chronic obstructive pulmonary disease with (acute) lower respiratory infection; R41.82 Altered mental status, unspecified; R01.1 Cardiac murmur, unspecified; Z79.899 Other long term (current) drug therapy; Z79.01 Long term (current) use of anticoagulants; Z99.81 Dependence on supplemental oxygen; Z91.81 History of falling; Z86.14 Personal history of Methicillin resistant Staphylococcus aureus infection; Z86.711 Personal history of pulmonary embolism; Z87.891 Personal history of nicotine dependence; Z88.5 Allergy status to narcotic agent; Z88.8 Allergy status to other drugs, medicaments and biological substances; Z91.013 Allergy to seafood; Z80.1 Family history of malignant neoplasm of trachea, bronchus and lung; Z80.49 Family history of malignant neoplasm of other genital organs
CPT/HCPCS: 36415; 71045; 71275; 80048; 80053; 82550; 82553; 83735; 83880; 84484; 85025; 85379; 85610; 85730; 87040; 93005; 93306; 94640; 94760; 96361; 96365; 96375; 99291

== ENCOUNTER → 2018-10-14 | Outpatient (CLI) | payer MEDICARE, OTHER ==
[2018-10-14 19:19] LABS: Calcium 9.8 mg/dL (8.7-10.3); Potassium 4.5 mmol/L (3.5-5.5)
[2018-10-14 19:35] LABS: Anion Gap 9.4 mmol/L (4.00-12.00); Carbon Dioxide 34.6 mmol/L (21.6-31.8)
== END | disposition home or self-care (01) ==
LOC: LABWHC1 11:34
PROVIDERS: ATTEND Physician Assistant
DX: E87.5 Hyperkalemia (principal)
CPT/HCPCS: 36415; 80048

== ENCOUNTER → 2019-06-14 | Outpatient (CLI) | payer MEDICARE, OTHER ==
[2019-06-14 12:27] LABS: Basophils # (A) 0.1 k/uL (0-0.2); Basophils % (A) 2 %; Eosinophils # (A) 0.1 k/uL (0-0.7); Eosinophils % (A) 1 %; HCT 43.2 % (34.0-46.0); Lymphocytes # (A) 2.8 k/uL (1.0-4.8); Lymphocytes % (A) 38 %; MCH 32.7 pg (25.0-35.0); MCHC 32.5 g/dL (31.0-37.0); MCV 100.5 fL (80.0-100.0); Mean Platelet Volume 7.2; Monocytes # (A) 0.5 k/uL (0-1.0); Monocytes % (A) 7 %; Neutrophils # (A) 3.7 k/uL (1.3-7.7); Neutrophils % (A) 51 %; Platelet Count 335 k/uL (150-450); RBC 4.29 m/uL (3.80-5.40); RDW 13.4 % (11.5-15.5); WBC 7.3 k/uL (3.8-10.6)
[2019-06-14 20:19] LABS: African American GFR (CKD) 123.6 (60.0-200.0); Calcium 9.2 mg/dL (8.7-10.3); Chol/HDL Ratio 2.86; LDL Cholesterol,Calculated 62.6 mg/dL (0.0-131.0); Non-African American GFR(CKD) 106.7 (60.0-200.0); Potassium 4.4 mmol/L (3.5-5.5); VLDL Calculation 32.4 mg/dL (5.00-40.00)
== END | disposition home or self-care (01) ==
LOC: LABWHC1 11:04
PROVIDERS: ATTEND Internal Medicine Infectious Disease
DX: E78.00 Pure hypercholesterolemia, unspecified (principal); E55.9 Vitamin D deficiency, unspecified
CPT/HCPCS: 36415; 80048; 80061; 82306; 84450; 84460; 85025

== ENCOUNTER → 2020-06-07 | Outpatient (CLI) | payer MEDICARE, OTHER ==
[2020-06-07 12:33] LABS: Basophils % (A) 1 %; Eosinophils # (A) 0.3 k/uL (0-0.7); Eosinophils % (A) 3 %; HCT 47.2 % (34.0-46.0); HGB 15.6 gm/dL (11.4-16.0); Lymphocytes # (A) 2.3 k/uL (1.0-4.8); Lymphocytes % (A) 28 %; MCH 32.9 pg (25.0-35.0); MCV 99.6 fL (80.0-100.0); Mean Platelet Volume 8.8; Monocytes # (A) 0.4 k/uL (0-1.0); Monocytes % (A) 5 %; Neutrophils # (A) 4.9 k/uL (1.3-7.7); Neutrophils % (A) 61 %; Platelet Count 289 k/uL (150-450); RBC 4.74 m/uL (3.80-5.40); RDW 12.1 % (11.5-15.5)
[2020-06-07 20:59] LABS: African American GFR (CKD) 115.6 (60.0-200.0); Albumin 4.3 g/dL (3.80-4.90); Albumin/Globulin Ratio 1.72 (1.60-3.17); Anion Gap 10.4 mmol/L (4.00-12.00); Carbon Dioxide 30.6 mmol/L (21.6-31.8); Chol/HDL Ratio 2.51; Globulin 2.5 g/dL (1.6-3.3); LDL Cholesterol,Calculated 69.8 mg/dL (0.0-131.0); Non-African American GFR(CKD) 99.8 (60.0-200.0); Potassium 4.5 mmol/L (3.5-5.5); Total Bilirubin 0.3 mg/dL (0.2-1.2); Total Protein 6.8 g/dL (6.2-8.2); VLDL Calculation 19.2 mg/dL (5.00-40.00)
== END | disposition home or self-care (01) ==
LOC: LABWHC1 11:50
PROVIDERS: ATTEND Internal Medicine Infectious Disease
DX: E78.00 Pure hypercholesterolemia, unspecified (principal); I10 Essential (primary) hypertension
CPT/HCPCS: 36415; 80053; 80061; 82306; 85025

== ENCOUNTER → 2020-07-22 | Outpatient (CLI) | payer MEDICARE, OTHER ==
[2020-07-23 06:03] LABS: Gliadin AB IgA, Deaminated NEGATIVE (NEGATIVE); Gliadin AB IgG, Deaminated NEGATIVE (NEGATIVE)
== END | disposition home or self-care (01) ==
LOC: LABWHC1 13:49
PROVIDERS: ATTEND Internal Medicine Gastroenterology
DX: R19.7 Diarrhea, unspecified (principal)
CPT/HCPCS: 36415; 83516

== ENCOUNTER → 2021-11-05 | Outpatient (CLI) | payer MEDICARE, OTHER ==
[2021-11-05 14:40] LABS: Basophils # (A) 0.04 X 10*3/uL (0.00-0.10); Basophils % (A) 0.5 %; Eosinophils # (A) 0.18 X 10*3/uL (0.04-0.35); Eosinophils % (A) 2.1 %; HCT 45.8 % (37.2-46.3); HGB 14.8 g/dL (12.0-15.0); Immature Grans, Automated 0.3 %; Lymphocytes # (A) 2.83 X 10*3/uL (0.90-5.00); Lymphocytes % (A) 32.3 %; MCH 32.2 pg (27.0-32.0); MCHC 32.3 g/dL (32.0-37.0); MCV 99.6 fL (80.0-97.0); Mean Platelet Volume 10.7 fL (9.5-12.2); Monocytes # (A) 0.64 X 10*3/uL (0.20-1.00); Monocytes % (A) 7.3 %; NRBC Per 100 WBC 0 /100 WBCS (0.0-0.0); Neutrophils # (A) 5.04 X 10*3/uL (1.80-7.70); Neutrophils % (A) 57.5 %; Platelet Count 353 X 10*3/uL (140-440); RDW 12.2 % (11.5-14.5); WBC 8.76 X 10*3/uL (4.50-10.00)
[2021-11-05 15:18] LABS: ALT 24 U/L (8-44); AST 18 U/L (13-35); African American GFR (CKD) 113.2 (60.0-200.0); Albumin 4.2 g/dL (3.8-4.9); Alkaline Phosphatase 77 U/L (41-126); BUN/Creat Ratio 17.25 Ratio (12.00-20.00); Blood Urea Nitrogen 10.8 mg/dL (9.0-27.0); Calcium 9.7 mg/dL (8.7-10.3); Carbon Dioxide 29.5 mmol/L (20.0-27.5); Chloride 101 mmol/L (96-109); Chol/HDL Ratio 2.73 Ratio; Globulin 3.5 g/dL (1.6-3.3); Glucose 139 mg/dL (70-110); LDL Cholesterol,Calculated 76.8 mg/dL (0.0-131.0); Non-African American GFR(CKD) 97.7 (60.0-200.0); Potassium 4.7 mmol/L (3.5-5.5); Sodium 141 mmol/L (135-145); Total Protein 7.6 g/dL (6.2-8.2)
== END | disposition home or self-care (01) ==
LOC: LABWHC1 10:04
PROVIDERS: ATTEND Internal Medicine Infectious Disease
DX: E78.00 Pure hypercholesterolemia, unspecified (principal); E55.9 Vitamin D deficiency, unspecified
CPT/HCPCS: 36415; 80053; 80061; 82306; 85025

== ENCOUNTER → 2022-05-20 | Outpatient (CLI) | payer MEDICARE, OTHER ==
[2022-05-20 16:02] LABS: Basophils # (A) 0.03 X 10*3/uL (0.00-0.10); Basophils % (A) 0.4 %; Eosinophils # (A) 0.67 X 10*3/uL (0.04-0.35); Eosinophils % (A) 8.2 %; HCT 45.6 % (37.2-46.3); HGB 14.7 g/dL (12.0-15.0); Immature Grans, Automated 0.2 %; Lymphocytes # (A) 2.51 X 10*3/uL (0.90-5.00); Lymphocytes % (A) 30.8 %; MCHC 32.2 g/dL (32.0-37.0); MCV 99.3 fL (80.0-97.0); Mean Platelet Volume 11.2 fL (9.5-12.2); Monocytes # (A) 0.58 X 10*3/uL (0.20-1.00); Monocytes % (A) 7.1 %; NRBC Per 100 WBC 0 /100 WBCS (0.0-0.0); Neutrophils # (A) 4.35 X 10*3/uL (1.80-7.70); Neutrophils % (A) 53.3 %; Platelet Count 319 X 10*3/uL (140-440); RBC 4.59 X 10*6/uL (4.10-5.20); RDW 12.5 % (11.5-14.5); WBC 8.16 X 10*3/uL (4.50-10.00)
[2022-05-20 16:20] LABS: ALT 14 U/L (8-44); AST 13 U/L (13-35); Albumin 4.1 g/dL (3.8-4.9); Albumin/Globulin Ratio 1.41 (1.60-3.17); Alkaline Phosphatase 92 U/L (41-126); BUN/Creat Ratio 13.33 Ratio (12.00-20.00); Calcium 9.8 mg/dL (8.7-10.3); Carbon Dioxide 31.1 mmol/L (20.0-27.5); Chloride 96 mmol/L (96-109); Chol/HDL Ratio 3.07 Ratio; Globulin 2.9 g/dL (1.6-3.3); Glucose 161 mg/dL (70-110); LDL Cholesterol,Calculated 85.4 mg/dL (0.0-131.0); Non-African American GFR(CKD) 98.4 (60.0-200.0); Potassium 4.4 mmol/L (3.5-5.5); Sodium 140 mmol/L (135-145)
== END | disposition home or self-care (01) ==
LOC: LABWHC1 10:20
PROVIDERS: ATTEND Internal Medicine Infectious Disease
DX: I10 Essential (primary) hypertension (principal); E78.00 Pure hypercholesterolemia, unspecified; E55.0 Rickets, active; R53.1 Weakness
CPT/HCPCS: 36415; 80053; 80061; 84439; 84443; 85025; 86140

== ENCOUNTER → 2022-08-05 | Outpatient (CLI) | payer MEDICARE, OTHER ==
--- NOTE | 2022-08-05 14:42 | XR ---
EXAMINATION TYPE: XR lumbosacral spine min 4V DATE OF EXAM: 08/05/2022 1:01 PM INDICATION: Patient age:Female; 61 years old; Reason for study: M54.50 Low Back Pain; COMPARISON: 10/06/2018 CT, 05/13/2015 TECHNIQUE: Frontal, lateral and coned in L5-S1 lateral views of the spine. FINDINGS: No evidence of any acute osseous pathology. No evidence of loss of vertebral body height i s seen. There is normal alignment of the lumbar vertebral bodies. Mild scattered disc space narrowing . Multilevel marginal osteophyte formation throughout the visualized spine. There is facet joint arth ropathy throughout the spine. Scattered at least mild neural foraminal stenosis. IMPRESSION: 1. No acute fracture. 2. Mild to moderate multilevel disc degeneration.
== END | disposition home or self-care (01) ==
LOC: RADXRMAIN 12:44
PROVIDERS: ATTEND Physical Medicine & Rehabilitation
DX: M51.37 Other intervertebral disc degeneration, lumbosacral region (principal)
CPT/HCPCS: 72110

== ENCOUNTER 2023-01-08 13:27 | Day surgery (SDC) | payer MEDICARE, OTHER ==
[2023-01-07 10:50] VITALS: BMI 40.2
[2023-01-08] MEDS ORDERED: LACTATED RINGERS 1,000 ML IV ONE (13:48)
[2023-01-08 13:59] LABS: Glucose,Whole Blood 126 mg/dL (70-110)
[2023-01-08 14:00] VITALS: TEMP 98
[2023-01-08] MEDS ORDERED: PROPOFOL 10 MG/ML 20 ML VIAL IV ONE (14:40)
[2023-01-08] MEDS ORDERED: LIDOCAINE 2% INJ 20 MG/ML (2 ML VIAL) ONE (14:40)
--- NOTE | 2023-01-08 14:52 | P.PCN ---
Date of Procedure: 01/08/23 Procedure(s) Performed: BRIEF HISTORY: Patient is a 62-year-old, pleasant, male scheduled for an upper endoscopy as a part of evaluation of progressive dysphagia to solids for the last 3 months duration. She has history of fundoplication 2016 and since then has been having intermittent dysphagia to solids for the upper endoscopy with dilation. Last one was in 2018. PROCEDURE PERFORMED: Esophagogastroduodenoscopy with biopsy. PREOPERATIVE DIAGNOSIS: Intermittent dysphagia to solids. IV sedation per anesthesia. PROCEDURE: After informed consent was obtained, the patient was brought into the endoscopy unit. IV sedation was administered by Anesthesia under continuous monitoring. Initially the Olympus GIF-140 video endoscope was inserted into the mouth. Esophagus intubated without any difficulty. It was gradually advanced into the stomach and duodenum and carefully examined. The bulb and the second part of the duodenum appeared normal. The scope at this time was withdrawn to the stomach, adequately insufflated with air, and upon careful examination, mucosa of the antrum, body, cardia and the fundus appeared normal. Distal fundoplication appeared intact The scope was then withdrawn into the esophagus. The GE junction was located at 36 cm from the incisors. Small hiatal hernia noted. The GE junction appeared slightly irregular with a short tongue of Owen's appearing mucosa proximal to the GE junction which was biopsied. The esophagus appeared normal. There were no erosions or ulcerations seen and the patient tolerated the procedure well. IMPRESSION: 1. No evidence of esophageal stricture. 2. Irregular GE junction and short tongue of Owen's appearing mucosa proxi mal to the GE junction status post biopsy. RECOMMENDATIONS: The findings of this examination were discussed with the patient as well as a family. She was advised to follow with the biopsy results.. Trial of Prilosec 20 mg daily and was briefly educated about antireflux measures.
[2023-01-08 14:56] VITALS: RESP 16
[2023-01-08 15:11] VITALS: BP 141/72; PULSE 71
== END 2023-01-08 15:24 | disposition home or self-care (01) ==
LOC: ORWHC2ENDO 13:27
PROVIDERS: ATTEND Internal Medicine Gastroenterology
DX: K21.9 Gastro-esophageal reflux disease without esophagitis (principal); K22.70 Barrett's esophagus without dysplasia; M79.7 Fibromyalgia; G40.909 Epilepsy, unspecified, not intractable, without status epilepticus; Z98.890 Other specified postprocedural states; Z88.2 Allergy status to sulfonamides; Z79.899 Other long term (current) drug therapy; J44.9 Chronic obstructive pulmonary disease, unspecified
CPT/HCPCS: 43239; J2704; J2001; 88305

== ENCOUNTER 2023-01-20 06:11 | Day surgery (SDC) | payer MEDICARE, OTHER ==
[2023-01-18 11:54] VITALS: BMI 43.0
[~2023-01-20 06:11] MED LIST changes: -LACTATED RINGERS 1,000 ML IV SCH; +MOXIFLOXACIN HCL 0.5% DROPS 3 ML BTL OP PRN; +TETRACAINE 0.5% OPHTH (PF) DROPS 4 ML BTL OP PRN; +TIMOLOL 0.5% OPHTH DROPS 5 ML BTL OP PRN
[2023-01-20] MEDS ORDERED: LACTATED RINGERS 1,000 ML IV SCH (06:41)
[2023-01-20] MEDS ORDERED: LIDOCAINE 1% (10MG/ML) FOR IV START INTRADERMA PRN (06:41)
[2023-01-20] MEDS: CYCLOPENTOLATE 1% OPHTH SOLN 2 ML BTL OP PRN ×3 (06:50→07:08)
[2023-01-20 06:54] VITALS: TEMP 97.1
[2023-01-20] MEDS: PHENYLEPHRINE 2.5% OPHTH DRP 2ML OP PRN ×3 (06:55→07:11)
[2023-01-20] MEDS ORDERED: MIDAZOLAM 2 MG/2 ML VIAL ONE (07:25)
[2023-01-20] MEDS ORDERED: SUCCINYLCHOLINE CHLORIDE 200 MG/10 ML VIAL IV ONE (07:25)
[2023-01-20] MEDS ORDERED: LIDOCAINE 2% INJ 20 MG/ML (2 ML VIAL) ONE (07:25)
[2023-01-20] MEDS ORDERED: PROPOFOL 10 MG/ML 20 ML VIAL IV ONE (07:25)
[2023-01-20] MEDS ORDERED: EPINEPHrine (PF) 0.3 ML in BALANCED SALT IRRIG SOLN COMB2 500 ML IRRIGATION ONE (07:33)
[2023-01-20] MEDS ORDERED: BALANCED SALT IRRIG SOLN COMB2 15 ML IRRIG.SOLN INTRAOCULA ONE (07:36)
[2023-01-20] MEDS ORDERED: DUOVISC KIT (GREEN BOX) INTRAOCULA ONE (07:36)
[2023-01-20] MEDS ORDERED: LIDOCAINE 1% (PF) 10MG/ML VIAL MISCELLANE ONE (07:36)
--- NOTE | 2023-01-20 08:24 | P.OP ---
Date of Procedure: 01/20/23 Preoperative Diagnosis: NS & CS Postoperative Diagnosis: same Procedure(s) Performed: PIOL< OS Implants: [id number] 18.00 Anesthesia: GETA Surgeon: Jamie Bentley Pathology: none sent Condition: stable Disposition: same day Indications for Procedure: blurry vision Operative Findings: no complications
[2023-01-20 09:12] VITALS: RESP 20
[2023-01-20 09:39] VITALS: BP 152/82; PULSE 71
--- NOTE | 2023-01-21 02:27 | OP ---
OPERATIVE REPORT DATE OF SERVICE : 01/20/2023 PROCEDURES PERFORMED: Phacoemulsification of cataract and intraocular lens implant of the left eye. PREOPERATIVE DIAGNOSES: Nuclear sclerosis, cortical sclerosis. POSTOPERATIVE DIAGNOSES: Nuclear sclerosis, cortical sclerosis. ANESTHESIA: General. ESTIMATED BLOOD LOSS: None. SPECIMEN TAKEN: None. NARRATIVE: After obtaining the appropriate consent in the preoperative area, the eye was anesthetized with 2% lidocaine and a gentian alex carey was placed on the patient's corneal limbus at 0 and 180 degrees. She was then brought to the operating room, placed under cardiac monitoring, induced under general anesthesia and intubated. Following intubation, her eye was prepared and covered in the usual manner. She was approached from her left temporal side using [employer] axis marker with an axis of 90 degrees. This was placed on the patient's cornea and marked at the corneal limbus for orientation of the lens to be implanted. The patient had a significant downgaze during the initial phase of the cataract operation, so a bridle suture placed through the inferior corneal limbus using 6-0 Vicryl, was secured to the brow area of the eye drape. At the 5 o'clock position, an MVR blade was used to create a paracentesis port and through this opening, Viscoat was used to stabilize the anterior chamber. At the 3 o'clock position, a 2.5 mm keratome was used to create a self-sealing corneal flap incision. Through this opening, a cystotome was introduced to begin a continuous tear capsulorrhexis which was then completed using the Utrata forceps. Hydrodissection and hydrodelineation of the lens were accomplished with balanced salt solution. Phacoemulsification of the lens utilizing phaco chop was accomplished in 22.46 seconds at 20% power. Removal of the remaining cortex was completed under irrigation and aspiration as well as careful polishing of the posterior capsule and capsule vacuum mode. Provisc was then used to stabilize the capsular bag and a [employer]ch [employer] MX [id number] diopter posterior chamber intraocular lens was inserted into the capsular bag without difficulty. The remaining viscoelastic was removed from in and around the intraocular lens and using the previously placed 90 degree axis do, the index of the lens was aligned with those pre-placed limbal do. The eye was brought to normal intraocular pressure through the paracentesis port. She then received 2 drops of 0.5% timolol followed by 2 drops of 0.5% moxifloxacin. Both paracentesis and temporal wound were dried with a Weck Santa sponge and Tisseel was placed on the corneal incisions to ensure watertight integrity. She was then lightly patched and shielded in the usual manner. There were no complications from the procedure. She tolerated the procedure well and was extubated in the room and returned to phase 1 recovery breathing on her own in good condition. MMODL / IJN: [id number] /
== END 2023-01-20 10:19 | disposition home or self-care (01) ==
LOC: OR 06:11
PROVIDERS: ATTEND Ophthalmology
DX: H25.12 Age-related nuclear cataract, left eye (principal); H25.013 Cortical age-related cataract, bilateral; H04.129 Dry eye syndrome of unspecified lacrimal gland; J44.9 Chronic obstructive pulmonary disease, unspecified; F41.9 Anxiety disorder, unspecified; K21.9 Gastro-esophageal reflux disease without esophagitis; F32.A Depression, unspecified; Z91.041 Radiographic dye allergy status; Z88.5 Allergy status to narcotic agent; Z79.899 Other long term (current) drug therapy; Z90.89 Acquired absence of other organs
CPT/HCPCS: 66984; V2787; C1780; C1762; J2250; J0330; J0171; J2001 ×2; J2704

== ENCOUNTER 2023-02-17 06:10 | Day surgery (SDC) | payer MEDICARE, OTHER ==
[2023-02-12 12:00] VITALS: BMI 42.8
[~2023-02-17 06:10] MED LIST changes: +LACTATED RINGERS 1,000 ML IV SCH; +LIDOCAINE 1% (10MG/ML) FOR IV START INTRADERMA PRN; -MOXIFLOXACIN HCL 0.5% DROPS 3 ML BTL OP PRN; -TIMOLOL 0.5% OPHTH DROPS 5 ML BTL OP PRN
[2023-02-17] MEDS: CYCLOPENTOLATE 1% OPHTH SOLN 2 ML BTL OP PRN ×3 (06:45→06:57)
[2023-02-17] MEDS: PHENYLEPHRINE 2.5% OPHTH DRP 2ML OP PRN ×3 (06:48→06:54)
[2023-02-17] MEDS ORDERED: guaiFENesin-DM 100-10MG/5ML 10 ML CUP PO PRN (06:50)
[2023-02-17] MEDS ORDERED: ALBUTEROL NEBULIZED 2.5 MG/3 ML INHALATION STA (06:52)
[2023-02-17] MEDS ORDERED: ONDANSETRON 4 MG/2 ML VIAL ONE (07:19)
[2023-02-17] MEDS ORDERED: PROPOFOL 10 MG/ML 20 ML VIAL IV ONE (07:21)
[2023-02-17] MEDS ORDERED: fentaNYL (PF) 50 MCG/ML 2 ML AMP ONE (07:21)
[2023-02-17] MEDS ORDERED: SUCCINYLCHOLINE CHLORIDE 200 MG/10 ML VIAL IV ONE (07:21)
[2023-02-17] MEDS ORDERED: MIDAZOLAM 2 MG/2 ML VIAL ONE (07:21)
[2023-02-17] MEDS ORDERED: LIDOCAINE 2% INJ 20 MG/ML (2 ML VIAL) ONE (07:21)
[2023-02-17] MEDS ORDERED: EPINEPHrine (PF) 0.3 ML in BALANCED SALT IRRIG SOLN COMB2 500 ML IRRIGATION ONE (07:45)
[2023-02-17] MEDS ORDERED: BALANCED SALT IRRIG SOLN COMB2 15 ML IRRIG.SOLN INTRAOCULA ONE (07:45)
[2023-02-17] MEDS ORDERED: LIDOCAINE 1% (PF) 10MG/ML VIAL MISCELLANE ONE (07:45)
[2023-02-17] MEDS ORDERED: HYALURONATE SODIUM INTRAOCULAR 1 EACH SYRINGE (12MG/ML) INTRAOCULA ONE (07:45)
[2023-02-17] MEDS: TIMOLOL 0.5% OPHTH DROPS 5 ML BTL OP PRN ×2 (07:52→07:58)
[2023-02-17] MEDS: MOXIFLOXACIN HCL 0.5% DROPS 3 ML BTL OP PRN ×2 (07:52→07:58)
--- NOTE | 2023-02-17 08:02 | P.OP ---
Date of Procedure: 02/17/23 Preoperative Diagnosis: NS & CS & reg astig Postoperative Diagnosis: same Procedure(s) Performed: PIOL, OD Implants: [id number] 17.50 Anesthesia: GETA Surgeon: Jamie Bentley Pathology: none sent Condition: stable Disposition: same day Indications for Procedure: blurry vision Operative Findings: no complications
[2023-02-17 08:16] VITALS: TEMP 97.1
[2023-02-17 08:18] VITALS: RESP 16
[2023-02-17 09:04] VITALS: BP 116/74; PULSE 70
--- NOTE | 2023-02-17 13:06 | OP ---
OPERATIVE REPORT DATE OF SERVICE : 02/17/2023 PROCEDURES PERFORMED: Phacoemulsification of cataract and intraocular lens implant of the right eye. PREOPERATIVE DIAGNOSES: Nuclear sclerosis, cortical sclerosis, and regular astigmatism. POSTOPERATIVE DIAGNOSES: Nuclear sclerosis, cortical sclerosis, and regular astigmatism. ANESTHESIA: General. ESTIMATED BLOOD LOSS: None. SPECIMEN TAKEN: None. NARRATIVE: After obtaining the appropriate consent, the patient was brought to the operating room. There, she was induced into general anesthesia and intubated. She was positioned in the normal position for cataract surgery, then prepped and draped in the usual sterile manner. She was approached from her right temporal side using previously acquired corneal topography information. An axis of 82 degrees was identified and marked with a [employer] axis marker. At the 11 o'clock position, a 2.5 mm keratome was used to create a self-sealing corneal flap incision. Through this opening, Amvisc was used to stabilize the anterior chamber. At the 9 o'clock position, a 2.5 mm keratome was used to create a self-sealing corneal flap incision. Through this opening, a cystotome was introduced to begin a continuous tear capsulorrhexis, which was then completed using the Utrata forceps. Hydrodissection and hydrodelineation of the lens were accomplished with balanced salt solution. Phacoemulsification lens utilizing phaco chop was accomplished at 14.66 seconds at 19% power. Irrigation and aspiration were then introduced to remove the remaining cortical material as well as careful polishing of the posterior capsule in a capsule vacuum mode. Amvisc was then used to stabilize the capsular bag and a [employer]ch [employer] [id number], 17.5 diopter posterior chamber intraocular lens was then inserted into the capsular bag without difficulty. The remaining viscoelastic was removed from in and around the intraocular lens and the lens was then oriented with the do placed on the patient's cornea. The eye was then brought to normal intraocular pressure through the paracentesis port and to ensure watertight integrity, Tisseel was used. After 90 seconds, 2 drops of 0.5% timolol followed by 2 drops of 0.5% moxifloxacin was placed on the patient's eye. She was then lightly patched and shielded in the usual manner. She was awakened and extubated in the operating room and taken to phase 1 recovery in good condition. MMODL / IJN: [id number] /
== END 2023-02-17 09:26 | disposition home or self-care (01) ==
LOC: OR 06:10
PROVIDERS: ATTEND Ophthalmology
DX: H25.11 Age-related nuclear cataract, right eye (principal); H25.011 Cortical age-related cataract, right eye; H04.129 Dry eye syndrome of unspecified lacrimal gland; Z96.1 Presence of intraocular lens; Z88.0 Allergy status to penicillin; Z79.899 Other long term (current) drug therapy; Z98.890 Other specified postprocedural states
CPT/HCPCS: 66984; 94640; V2787; C1780; C1762; J2250; J0330; J0171; J3010; J2001 ×2; J2704

== ENCOUNTER → 2024-01-03 | Outpatient (CLI) | payer MEDICARE, OTHER ==
[2024-01-03 15:35] LABS: Basophils # (A) 0.02 X 10*3/uL (0.00-0.10); Basophils % (A) 0.3 %; Eosinophils # (A) 0.06 X 10*3/uL (0.04-0.35); Eosinophils % (A) 0.8 %; HCT 43.8 % (37.2-46.3); HGB 14.4 g/dL (12.0-15.0); Lymphocytes # (A) 2.99 X 10*3/uL (0.90-5.00); Lymphocytes % (A) 38.5 %; MCH 32.7 pg (27.0-32.0); MCHC 32.9 g/dL (32.0-37.0); MCV 99.3 FL (80.0-97.0); Mean Platelet Volume 11.2 FL (9.5-12.2); Monocytes # (A) 0.63 X 10*3/uL (0.20-1.00); Monocytes % (A) 8.1 %; NRBC Per 100 WBC 0 X 10*3/uL (0.00-0.01); Neutrophils # (A) 4.04 X 10*3/uL (1.80-7.70); Neutrophils % (A) 51.9 %; Platelet Count 366 X 10*3/uL (140-440); RBC 4.41 X 10*6/uL (4.10-5.20); RDW 12.1 % (11.5-14.5); WBC 7.77 X 10*3/uL (4.50-10.00)
[2024-01-03 16:14] LABS: ALT 12 U/L (8-44); AST 15 U/L (13-35); Albumin 4.4 g/dL (3.8-4.9); Albumin/Globulin Ratio 1.57 Ratio (1.60-3.17); Alkaline Phosphatase 72 U/L (41-126); BUN/Creat Ratio 19.33 Ratio (12.00-20.00); Blood Urea Nitrogen 11.6 mg/dL (9.0-27.0); Calcium 10.5 mg/dL (8.7-10.3); Carbon Dioxide 28.1 mmol/L (21.6-31.8); Chloride 97 mmol/L (96-109); Chol/HDL Ratio 2.87 Ratio; Globulin 2.8 g/dL (1.6-3.3); Glucose 174 mg/dL (70-110); LDL Cholesterol,Calculated 84.6 mg/dL (0.0-131.0); Potassium 4.6 mmol/L (3.5-5.5); Sodium 140 mmol/L (135-145); Total Bilirubin 0.2 mg/dL (0.3-1.2); Total Protein 7.2 g/dL (6.2-8.2)
== END | disposition home or self-care (01) ==
LOC: LABWHC1 09:58
PROVIDERS: ATTEND Internal Medicine Infectious Disease
DX: I10 Essential (primary) hypertension (principal); E78.00 Pure hypercholesterolemia, unspecified; E55.9 Vitamin D deficiency, unspecified
CPT/HCPCS: 36415; 80053; 80061; 82306; 85025

== ENCOUNTER → 2024-10-12 | Outpatient (CLI) | payer MEDICARE, OTHER ==
--- NOTE | 2024-10-12 12:36 | MR ---
EXAMINATION TYPE: MR brain wo con DATE OF EXAM: 10/12/2024 12:15 PM COMPARISON: CT brain 03/29/2018. CLINICAL INDICATION: Female, 63 years old with history of R51 Sudden onset headache; PHH, Migraines, Sudden onset headache, Dizzy at times, Rt arm tremor had most of life, Epileptic seizures since age 1 5, Last seizure last month TECHNIQUE: Multi planar, multi sequence imaging was performed through the brain including: T1, T2, In version recovery, Diffusion weighted imaging, and gradient echo imaging. No gadolinium was given. FINDINGS: The villa-white junctions, ventricular system, basal cisterns appear unremarkable. Scattered foci of high T2 signal intensity are seen within the periventricular white matter. Midline structures show n o abnormality. Diffusion-weighted imaging shows no evidence of restricted diffusion. The susceptibili ty weighted images do not reveal any evidence for micro-hemorrhage. The bone marrow signal is within normal limits. Paranasal sinuses and mastoid air cells: No significant paranasal sinus disease. Increased signal in the mastoid air cells bilaterally. Visualized orbits: Bilateral aphakia IMPRESSION: 1. No evidence of intracranial mass or acute/subacute infarct. 2. Nonspecific white matter changes, likely secondary to small vessel ischemic disease. 3. Trace bilateral mastoid air cell effusions. [facility], , 10/12/2024 12:33 PM
== END | disposition home or self-care (01) ==
LOC: RADMRIMAIN 10:54
PROVIDERS: ATTEND Psychiatry & Neurology Neurology
DX: H74.8X3 Other specified disorders of middle ear and mastoid, bilateral (principal); R90.82 White matter disease, unspecified; R51.9 Headache, unspecified
CPT/HCPCS: 70551